=== PATIENT | female | born 1930 | race Two or more races ===

== ENCOUNTER 2017-04-15 13:01 | Emergency (ER) | payer MEDICARE, MEDICAID, OTHER ==
[2017-04-15] MEDS ORDERED: NS 0.9% 1000 ML* 1,000 ML IV ONE (13:56)
--- NOTE | 2017-04-15 14:35 | RAD ---
HISTORY: Bilateral hip pain, fall COMPARISONS: June 26, 2012 VIEWS: 5, Frontal view of the pelvis with frontal and frog-leg views of the left hip and of the right hip FINDINGS: Right: BONE DENSITY: There is diffuse osteopenia. BONES: There is no displaced fracture. JOINTS: There is mild osteoarthritis of the right hip ALIGNMENT: There is no dislocation. The alignment is anatomic. SOFT TISSUES: Unremarkable. Left: BONE DENSITY: There is diffuse osteopenia. BONES: There is no displaced fracture. JOINTS: There is mild osteoporosis of the left hip ALIGNMENT: There is no dislocation. The alignment is anatomic. SOFT TISSUES: Unremarkable. OTHER FINDINGS: None. IMPRESSION: 1. OSTEOPENIA. 2. BILATERAL OSTEOARTHRITIS. 3. NO RADIOGRAPHIC EVIDENCE FOR HIP FRACTURE. X-RAYS MAY BE NEGATIVE WITH NONDISPLACED HIP FRACTURE, IF THERE IS PERSISTENT CLINICAL CONCERN, RECOMMEND CONSIDERATION OF MRI. IN THE SETTING OF CONTRAINDICATION TO MRI OR LIMITATION IN EMERGENT ACCESS TO MRI, CT WOULD BE SUGGESTED.
--- NOTE | 2017-04-15 14:35 | RAD ---
HISTORY: Left knee pain, status post fall COMPARISONS: April 11, 2011 VIEWS: 2, Frontal and lateral views of the left knee FINDINGS: BONE DENSITY: There is diffuse osteopenia. BONES: There is no displaced fracture. JOINTS: There is mild to moderate tricompartmental osteoarthritis. There is no suprapatellar joint effusion or lipohemarthrosis. ALIGNMENT: There is no dislocation. SOFT TISSUES: Unremarkable. OTHER FINDINGS: None. IMPRESSION: OSTEOPENIA. OSTEOARTHRITIS. NO ACUTE OSSEOUS INJURY. IF SYMPTOMS PERSIST, RECOMMEND REPEAT IMAGING.
[2017-04-15 14:48] LABS: Hematocrit 36 % (35-47); Hemoglobin 11.5 g/dl (12.0-16.0); Mean Corpuscular HGB Conc 32 g/dl (31-36); Mean Corpuscular Hemoglobin 30 pg (27-31); Mean Corpuscular Volume 93 fL (80-97); Mean Platelet Volume 9 um3 (7.4-10.4); Red Blood Count 3.85 10^6/ul (4.0-5.4); Red Cell Distribution Width 16 % (10.5-15); White Blood Count 15.9 10^3/ul (3.5-10.8)
[2017-04-15 15:02] LABS: Albumin 3.8 g/dL (3.2-5.2); BUN/Creatinine Ratio 14.4 (8-20); C Reactive Protein 54.11 mg/L (< 5.00); Calcium 9.4 mg/dL (8.6-10.3); EGFR African American 43.7 (>60); Globulin 3.6 g/dL (2-4); Total Bilirubin 0.7 mg/dL (0.2-1.0); Total Protein 7.4 g/dL (6.4-8.9)
[2017-04-15 15:04] LABS: Potassium 3.9 mmol/L (3.5-5.0)
[2017-04-15 18:08] VITALS: BP 178/88
--- NOTE | 2017-04-15 18:49 | ED ---
Antonietta Vela Auryana, scribed for Alon Arriaga MD on 04/15/17 at 1417 . Complex/Multi-Sys Presentation - HPI Summary HPI Summary: 87 year old female MARQUES from shelter due to right hip pain. Patient is non- verbal and does not answer questions. she is a level 5 caveat due to dementia. On arrival, nurses state that patient denies any pain. On physician visit, patient expresses left leg pain with movement with passive movement. - History Of Current Complaint Chief Complaint: EDGeneral Time Seen by Provider: 04/15/17 13:21 Hx Obtained From: Family/Lombardi Developer, EMS, Medical Records Hx From Patient Unobtainable Due To: Dementia - Unable to get history - level 5 caveat due to dementia. Location: Pain At: - left knee and left hip - Allergies/Home Medications Allergies/Adverse Reactions: Allergies Allergy/AdvReac Type Severity Reaction Status Date / Time Codeine Allergy Nausea Verified 07/10/15 21:40 PMH/Surg Hx/FS Hx/Imm Hx Endocrine/Hematology History: Reports: Hx Diabetes - NIDDM, Hx Thyroid Disease Cardiovascular History: Reports: Hx Coronary Artery Disease - declined stents per patient's son, Hx Hypercholesterolemia, Hx Hypertension, Other Cardiovascular Problems/Disorders - IDDM II Respiratory History: Denies: Hx Asthma, Hx Chronic Obstructive Pulmonary Disease (COPD) GI History: Reports: Hx Gastroesophageal Reflux Disease, Other GI Disorders - diverticulitis, GERD Musculoskeletal History: Reports: Other Musculoskeletal History - pelvic fx sep 2014 Sensory History: Reports: Hx Contacts or Glasses, Hx Hearing Problem Denies: Hx Hearing Aid Opthamlomology History: Reports: Hx Contacts or Glasses Neurological History: Reports: Hx Dementia - DM II - Surgical History Surgery Procedure, Year, and Place: language barrier. 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 Positive: Myalgia - LEFT LE PAIN All Other Systems Reviewed And Are Negative: No Physical Exam - Summary Physical Exam Summary: VITAL SIGNS: Reviewed. GENERAL: Patient is a elderly, fragile, confused, and non-verbal female who is lying in the stretcher. Patient is not in any acute respiratory distress. Unable to get history - level 5 caveat due to dementia. Patient is obtund but reacts on verbal stimulation. Patient is confused - per report this is her baseline. HEAD AND FACE: No signs of trauma. No ecchymosis, hematomas or skull depressions. No sinus tenderness. EYES: PERRLA, EOMI x 2, No injected conjunctiva, no nystagmus. No photophobia. EARS: Hearing grossly intact. Ear canals and tympanic membranes are within normal limits. MOUTH: Oropharynx dry but otherwise within normal limits. NECK: Supple, trachea is midline, no adenopathy, no JVD, no carotid bruit, no c- spine tenderness, neck with full ROM. No meningeal signs, no Kernig's or brudzinskis signs. CHEST: Symmetric, no tenderness at palpation LUNGS: Clear to auscultation bilaterally. No wheezing or crackles. CVS: Regular rate and rhythm, S1 and S2 present, no murmurs or gallops appreciated. ABDOMEN: Soft, non-tender. No signs of distention. No rebound no guarding, and no masses palpated. Bowel sounds are normal. EXTREMITIES: Left hip adn left knee pain with movement but no edema, no cyanosis or clubbing. NEURO: No acute neurological deficits. SKIN: Dry and warm Triage Information Reviewed: Yes Vital Signs On Initial Exam: Initial Vitals Temp Pulse Resp BP Pulse Ox 98.4 F 77 16 104/66 92 04/15/17 13:12 04/15/17 13:12 04/15/17 13:12 04/15/17 13:12 04/15/17 13:12 Vital Signs Reviewed: Yes Diagnostics - Vital Signs Vital Signs Temp Pulse Resp BP Pulse Ox 04/15/17 13:26 98.4 F 74 16 104/66 92 04/15/17 13:12 98.4 F 77 16 104/66 92 - Laboratory Lab Results: Lab Results 04/15/17 04/15/17 04/15/17 Range/Units 14:40 14:40 14:40 WBC 15.9 H (3.5-10.8) 10^3/ul RBC 3.85 L (4.0-5.4) 10^6/ul Hgb 11.5 L (12.0-16.0) g/dl Hct 36 (35-47) % MCV 93 (80-97) fL MCH 30 (27-31) pg MCHC 32 (31-36) g/dl RDW 16 H (10.5-15) % Plt Count 280 (150-450) 10^3/ul MPV 9 (7.4-10.4) um3 Neut % (Auto) 68.6 (38-83) % Lymph % (Auto) 20.9 L (25-47) % [place] % (Auto) 7.9 (1-9) % Eos % (Auto) 1.6 (0-6) % Baso % (Auto) 1.0 (0-2) % Absolute Neuts (auto) 10.9 H (1.5-7.7) 10^3/ul Absolute Lymphs (auto) 3.3 (1.0-4.8) 10^3/ul Absolute Monos (auto) 1.3 H (0-0.8) 10^3/ul Absolute Eos (auto) 0.3 (0-0.6) 10^3/ul Absolute Basos (auto) 0.2 (0-0.2) 10^3/ul Absolute Nucleated RBC 0.01 10^3/ul Nucleated RBC % 0 Sodium 136 (133-145) mmol/L Potassium 3.9 (3.5-5.0) mmol/L Chloride 103 (101-111) mmol/L Carbon Dioxide 23 (22-32) mmol/L Anion Gap 10 (2-11) mmol/L BUN 21 (6-24) mg/dL Creatinine 1.46 H (0.51-0.95) mg/dL Est GFR ( Amer) 43.7 (>60) Est GFR (Non-Af Amer) 34.0 (>60) BUN/Creatinine Ratio 14.4 (8-20) Glucose 100 (70-100) mg/dL Lactic Acid 2.6 H* (0.5-2.0) mmol/L Calcium 9.4 (8.6-10.3) mg/dL Total Bilirubin 0.70 (0.2-1.0) mg/dL AST 18 (13-39) U/L ALT 7 (7-52) U/L Alkaline Phosphatase 83 (34-104) U/L C-Reactive Protein 54.11 H (< 5.00) mg/L Total Protein 7.4 (6.4-8.9) g/dL Albumin 3.8 (3.2-5.2) g/dL Globulin 3.6 (2-4) g/dL Albumin/Globulin Ratio 1.1 (1-3) Result Diagrams: 04/15/17 14:40 04/15/17 14:40 Lab Statement: Any lab studies that have been ordered have been reviewed, and results considered in the medical decision making process. - Radiology BILATERAL HIP XR Xray Interpretation: Positive (See Comments) - IMPRESSION: 1. OSTEOPENIA. 2. BILATERAL OSTEOARTHRITIS. 3. NO RADIOGRAPHIC EVIDENCE FOR HIP FRACTURE. X- RAYS MAY BE NEGATIVE WITH NONDISPLACED HIP FRACTURE, IF THERE IS PERSISTENT CLINICAL CONCERN, RECOMMEND CONSIDERATION OF MRI. IN THE SETTING OF CONTRAINDICATION TO MRI OR LIMITATION IN EMERGENT ACCESS TO MRI, CT WOULD BE SUGGESTED. Radiology Interpretation Completed By: Radiologist LEFT KNEE XR Xray Interpretation: Positive (See Comments) - IMPRESSION: OSTEOPENIA. OSTEOARTHRITIS. NO ACUTE OSSEOUS INJURY. IF SYMPTOMS PERSIST, RECOMMEND REPEAT IMAGING. Radiology Interpretation Completed By: Radiologist Complex Multi-Symp Course/Dx Course Of Treatment: 87 year old female BIBA from shelter due to right hip pain. Patient is non-verbal and does not answer questions. she is a level 5 caveat due to dementia. On arrival, nurses state that patient denies any pain. On physician visit, patient expresses left leg pain with movement with passive movement. Assessment/Plan: Test results WNL except slight increase WBC of 15.9., creatinine 1.46, CRP 54.11. HIP XR and KNEE XR shows no fracture or dislocation. Patient is very comfortable and moves all extremities- no pain. Therefore patient will be discharged back to the shelter. She is hemodynamically stable and A&O. - Diagnoses Provider Diagnoses: Left hip pain, Fall Discharge - Discharge Plan Condition: Stable Disposition: HOSPICE - OTHER FACILITY Discharge Disposition Comment: discharged back to [place] Patient Education Materials: Fall Prevention (ED), Hip Pain (ED) Referrals: Uriel, [Primary Care Provider] - 2 Days The documentation as recorded by the Antonietta santos Auryana accurately reflects the service I personally performed and the decisions made by Bart nava Walter, MD.
== END 2017-04-15 20:23 | disposition home or self-care (01) ==
LOC: ED 13:01
DX: M25.551 Pain in right hip (principal); E11.8 Type 2 diabetes mellitus with unspecified complications; F03.90 Unspecified dementia, unspecified severity, without behavioral disturbance, psychotic disturbance, mood disturbance, and anxiety; Z91.81 History of falling; Z86.79 Personal history of other diseases of the circulatory system
CPT/HCPCS: 36415; 73523; 80053; 83605; 85025; 86140; 99283

== ENCOUNTER → 2017-04-18 14:03 | Emergency (ER) | payer MEDICARE, OTHER ==
[~2017-04-18 14:03] MED LIST: NS 0.9% 1000 ML* 1,000 ML IV ONE
--- NOTE | 2017-04-18 16:22 | RAD ---
INDICATION: Weakness COMPARISON: Chest x-ray 22,015 TECHNIQUE: AP seated and lateral views were obtained. FINDINGS: Bones/Soft Tissues: There is osteopenia with kyphosis. Cardiomediastinal: The heart is normal in size. There is uncoiling of the thoracic aorta. There are as atherosclerotic calcifications. Lungs: There are no infiltrates. Pleura: There are no pleural effusions. Other: None IMPRESSION: NO ACTIVE DISEASE.
[2017-04-18 16:51] LABS: Hematocrit 32 % (35-47); Hemoglobin 10.2 g/dl (12.0-16.0); Mean Corpuscular HGB Conc 32 g/dl (31-36); Mean Corpuscular Hemoglobin 30 pg (27-31); Mean Corpuscular Volume 94 fL (80-97); Mean Platelet Volume 9 um3 (7.4-10.4); Red Cell Distribution Width 16 % (10.5-15); White Blood Count 11.4 10^3/ul (3.5-10.8)
[2017-04-18 17:16] LABS: Albumin 3.7 g/dL (3.2-5.2); BUN/Creatinine Ratio 19.9 (8-20); C Reactive Protein 60.92 mg/L (< 5.00); Calcium 9.1 mg/dL (8.6-10.3); EGFR African American 36.4 (>60); EGFR Non-African American 28.3 (>60); Globulin 3.5 g/dL (2-4); Potassium 3.9 mmol/L (3.5-5.0); Total Bilirubin 0.3 mg/dL (0.2-1.0); Total Protein 7.2 g/dL (6.4-8.9)
[2017-04-18 17:48] LABS: Urine Bacteria Absent (Absent); Urine Bilirubin Negative (Negative); Urine Glucose Negative (Negative); Urine Nitrite Negative (Negative)
[2017-04-18 18:03] VITALS: BP 153/84
--- NOTE | 2017-04-19 12:28 | ED ---
Alonzo Vela Billy, scribed for Alon Arriaga MD on 04/18/17 at 1707 . Complex/Multi-Sys Presentation - HPI Summary HPI Summary: This is an 87 year-old female who is a resident of [facility]. PMHx of multiple fractures, DM, HTN, HLD, who presents to the ED following high lactic acid this morning of 4.3. She is Albanian-speaking only, hard of hearing, and has dementia, and is accompanied by her son who is unfamiliar with her PMHx and the events of this morning. Last here in the ED on 04/15/17 for evaluation of fracture injury. Per son, patient still complains of pain to the right leg where she fell, which is unchanged since Sunday. Patient does not appear to be in any distress. - History Of Current Complaint Chief Complaint: EDGeneral Time Seen by Provider: 04/18/17 15:10 Hx Obtained From: Patient, Family/Boiler Service Technician Onset/Duration: Still Present Timing: Constant Severity Currently: None Location: Pain At: - left leg (unchanged) Aggravating Factor(s): n/a Alleviating Factor(s): n/a - Allergies/Home Medications Allergies/Adverse Reactions: Allergies Allergy/AdvReac Type Severity Reaction Status Date / Time Codeine Allergy Nausea Verified 07/10/15 21:40 Home Medications: Home Medications Acetaminophen [Acetaminophen Extra Stren] 1,000 mg PO TID PRN 04/18/17 [History Confirmed 04/18/17] Aspirin Low Dose CHEW TAB* [Aspirin Low Dose TAB*] 81 mg PO QAM 04/18/17 [ History Confirmed 04/18/17] Cholecalciferol [Vitamin D3 Super Strength] 2,000 unit PO QAM 04/18/17 [History Confirmed 04/18/17] Cyanocobalamin TAB* [Vitamin B12 TAB*] 1,000 mcg PO QAM 04/18/17 [History Confirmed 04/18/17] Diltiazem CD CAP* [Cardizem CD CAP*] 120 mg PO QAM 04/18/17 [History Confirmed 04/18/17] Lactase Enzyme (NF) [Lactase Enzyme] 9,000 unit PO AC 04/18/17 [History Confirmed 04/18/17] Lovastatin(NF) [Mevacor(NF)] 20 mg PO BEDTIME 04/18/17 [History Confirmed ] Metoprolol Succinate XL TAB* [Toprol XL TAB*] 25 mg PO QAM 04/18/17 [History Confirmed 04/18/17] PMH/Surg Hx/FS Hx/Imm Hx Endocrine/Hematology History: Reports: Hx Diabetes - NIDDM, Hx Thyroid Disease Cardiovascular History: Reports: Hx Coronary Artery Disease - declined stents per patient's son, Hx Hypercholesterolemia, Hx Hypertension, Other Cardiovascular Problems/Disorders - IDDM II Respiratory History: Denies: Hx Asthma, Hx Chronic Obstructive Pulmonary Disease (COPD) GI History: Reports: Hx Gastroesophageal Reflux Disease, Other GI Disorders - diverticulitis, GERD Musculoskeletal History: Reports: Other Musculoskeletal History - pelvic fx sep 2014 Sensory History: Reports: Hx Contacts or Glasses, Hx Hearing Problem Denies: Hx Hearing Aid Opthamlomology History: Reports: Hx Contacts or Glasses Neurological History: Reports: Hx Dementia - DM II - Surgical History Surgery Procedure, Year, and Place: language barrier. 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 GENERAL: Patient is a well-developed and nourished female who is lying comfortable in the stretcher. Patient is not in any acute respiratory distress. HEAD AND FACE: No signs of trauma. No ecchymosis, hematomas or skull depressions. No sinus tenderness. EYES: PERRLA, EOMI x 2, No injected conjunctiva, no nystagmus. EARS: Hearing grossly intact. Ear canals and tympanic membranes are within normal limits. MOUTH: Oropharynx within normal limits. NECK: Supple, trachea is midline, no adenopathy, no JVD, no carotid bruit, no c- spine tenderness, neck with full ROM. CHEST: Symmetric, no tenderness at palpation LUNGS: Clear to auscultation bilaterally. No wheezing or crackles. CVS: Regular rate and rhythm, S1 and S2 present, no murmurs or gallops appreciated. ABDOMEN: Soft, non-tender. No signs of distention. No rebound no guarding, and no masses palpated. Bowel sounds are normal. EXTREMITIES: Left hip and knee pain with no edema, no cyanosis or clubbing. NEURO: Alert and oriented x 3. No acute neurological deficits. Speech is normal and follows commands. SKIN: Dry and warm Triage Information Reviewed: Yes Vital Signs On Initial Exam: Initial Vitals Temp Pulse BP Pulse Ox 98.7 F 86 126/71 98 04/18/17 14:08 04/18/17 14:08 04/18/17 14:08 04/18/17 14:08 Vital Signs Reviewed: Yes - Shoshana Coma Scale Coma Scale Total: 13 Diagnostics - Vital Signs Vital Signs Temp Pulse Resp BP Pulse Ox 04/18/17 15:03 98.6 F 85 15 137/75 93 04/18/17 14:08 98.7 F 86 126/71 98 - Laboratory Lab Results: Lab Results 04/18/17 04/18/17 04/18/17 Range/Units 16:40 16:40 16:40 WBC 11.4 H (3.5-10.8) 10^3/ul RBC 3.40 L (4.0-5.4) 10^6/ul Hgb 10.2 L (12.0-16.0) g/dl Hct 32 L (35-47) % MCV 94 (80-97) fL MCH 30 (27-31) pg MCHC 32 (31-36) g/dl RDW 16 H (10.5-15) % Plt Count 303 (150-450) 10^3/ul MPV 9 (7.4-10.4) um3 Neut % (Auto) 59.0 (38-83) % Lymph % (Auto) 28.7 (25-47) % [place] % (Auto) 8.2 (1-9) % Eos % (Auto) 3.8 (0-6) % Baso % (Auto) 0.3 (0-2) % Absolute Neuts (auto) 6.7 (1.5-7.7) 10^3/ul Absolute Lymphs (auto) 3.3 (1.0-4.8) 10^3/ul Absolute Monos (auto) 0.9 H (0-0.8) 10^3/ul Absolute Eos (auto) 0.4 (0-0.6) 10^3/ul Absolute Basos (auto) 0 (0-0.2) 10^3/ul Absolute Nucleated RBC 0.01 10^3/ul Nucleated RBC % 0.1 Sodium 139 (133-145) mmol/L Potassium 3.9 (3.5-5.0) mmol/L Chloride 106 (101-111) mmol/L Carbon Dioxide 24 (22-32) mmol/L Anion Gap 9 (2-11) mmol/L BUN 34 H (6-24) mg/dL Creatinine 1.71 H (0.51-0.95) mg/dL Est GFR ( Amer) 36.4 (>60) Est GFR (Non-Af Amer) 28.3 (>60) BUN/Creatinine Ratio 19.9 (8-20) Glucose 133 H (70-100) mg/dL Lactic Acid 1.5 (0.5-2.0) mmol/L Calcium 9.1 (8.6-10.3) mg/dL Total Bilirubin 0.30 (0.2-1.0) mg/dL AST 12 L (13-39) U/L ALT 5 L (7-52) U/L Alkaline Phosphatase 87 (34-104) U/L Ammonia (16-53) mol/L C-Reactive Protein 60.92 H (< 5.00) mg/L Total Protein 7.2 (6.4-8.9) g/dL Albumin 3.7 (3.2-5.2) g/dL Globulin 3.5 (2-4) g/dL Albumin/Globulin Ratio 1.1 (1-3) Lipase 76 (11.0-82.0) U/L Urine Color Urine Appearance Urine pH (5-9) Ur Specific [place] (1.010-1.030) Urine Protein (Negative) Urine Ketones (Negative) Urine Blood (Negative) Urine Nitrate (Negative) Urine Bilirubin (Negative) Urine Urobilinogen (Negative) Ur Leukocyte Esterase (Negative) Urine WBC (Auto) (Absent) Urine RBC (Auto) (Absent) Ur Squamous Epith Cells (Absent) Urine Bacteria (Absent) Urine Glucose (Negative) Urine Ascorbic Acid (Negative) 04/18/17 04/18/17 Range/Units 16:40 17:35 WBC (3.5-10.8) 10^3/ul RBC (4.0-5.4) 10^6/ul Hgb (12.0-16.0) g/dl Hct (35-47) % MCV (80-97) fL MCH (27-31) pg MCHC (31-36) g/dl RDW (10.5-15) % Plt Count (150-450) 10^3/ul MPV (7.4-10.4) um3 Neut % (Auto) (38-83) % Lymph % (Auto) (25-47) % [place] % (Auto) (1-9) % Eos % (Auto) (0-6) % Baso % (Auto) (0-2) % Absolute Neuts (auto) (1.5-7.7) 10^3/ul Absolute Lymphs (auto) (1.0-4.8) 10^3/ul Absolute Monos (auto) (0-0.8) 10^3/ul Absolute Eos (auto) (0-0.6) 10^3/ul Absolute Basos (auto) (0-0.2) 10^3/ul Absolute Nucleated RBC 10^3/ul Nucleated RBC % Sodium (133-145) mmol/L Potassium (3.5-5.0) mmol/L Chloride (101-111) mmol/L Carbon Dioxide (22-32) mmol/L Anion Gap (2-11) mmol/L BUN (6-24) mg/dL Creatinine (0.51-0.95) mg/dL Est GFR ( Amer) (>60) Est GFR (Non-Af Amer) (>60) BUN/Creatinine Ratio (8-20) Glucose (70-100) mg/dL Lactic Acid (0.5-2.0) mmol/L Calcium (8.6-10.3) mg/dL Total Bilirubin (0.2-1.0) mg/dL AST (13-39) U/L ALT (7-52) U/L Alkaline Phosphatase (34-104) U/L Ammonia 38 (16-53) mol/L C-Reactive Protein (< 5.00) mg/L Total Protein (6.4-8.9) g/dL Albumin (3.2-5.2) g/dL Globulin (2-4) g/dL Albumin/Globulin Ratio (1-3) Lipase (11.0-82.0) U/L Urine Color Yellow Urine Appearance Cloudy Urine pH 5.0 (5-9) Ur Specific [place] 1.018 (1.010-1.030) Urine Protein Negative (Negative) Urine Ketones Negative (Negative) Urine Blood Negative (Negative) Urine Nitrate Negative (Negative) Urine Bilirubin Negative (Negative) Urine Urobilinogen Negative (Negative) Ur Leukocyte Esterase Trace H (Negative) Urine WBC (Auto) Trace(0-5/hpf) (Absent) Urine RBC (Auto) Absent (Absent) Ur Squamous Epith Cells Present H (Absent) Urine Bacteria Absent (Absent) Urine Glucose Negative (Negative) Urine Ascorbic Acid * H (Negative) Result Diagrams: 04/18/17 16:40 04/18/17 16:40 Lab Statement: Any lab studies that have been ordered have been reviewed, and results considered in the medical decision making process. Complex Multi-Symp Course/Dx Assessment/Plan: This is an 87 year-old female who is a resident of [facility]. PMHx of multiple fractures, DM, HTN, HLD, who presents to the ED following high lactic acid this morning of 4.3. She is Albanian-speaking only, hard of hearing, and has dementia, and is accompanied by her son who is unfamiliar with her PMHx and the events of this morning. Last here in the ED on 04/15/17 for evaluation of fracture injury. Per son, patient still complains of pain to the right leg where she fell, which is unchanged since Sunday. Patient does not appear to be in any distress. Test results WNL except for WBC of 11.4 which is improved from a previous measurement of 15.9. BUN is 34. Creatinine is 1.71 possibly secondary to dehydration. Lactic acid is 1.5. CRP is 60.9. UA is negative. CXR shows no active disease. Therefore in the Ed course the patient was given IV fluids for dehydration. The patient is much more talkative and alert with her son who speaks Albanian. The patients son reports that she may actually be depressed because she lost her favorite son four weeks ago, because he used to visit her every day, and now she is only visited once in a while since he lives far away. The patient will be discharged home to follow up with PCP. - Diagnoses Differential Diagnoses/HQI/PQRI: Urinary Tract Infection, Other - Pneumonia, deconditioning, weakness Provider Diagnoses: Dehydration, possible depression Discharge - Discharge Plan Condition: Improved Disposition: HOME Patient Education Materials: Dehydration (ED) Referrals: Uriel, [Primary Care Provider] - The documentation as recorded by the Alonzo santos Billy accurately reflects the service I personally performed and the decisions made by me, Alon Arriaga MD.
== END | disposition home or self-care (01) ==
LOC: ED 14:03
DX: N39.0 Urinary tract infection, site not specified (principal); G89.11 Acute pain due to trauma; I10 Essential (primary) hypertension; E03.9 Hypothyroidism, unspecified; E13.8 Other specified diabetes mellitus with unspecified complications; E55.9 Vitamin D deficiency, unspecified
CPT/HCPCS: 36415; 71020; 80053; 81003; 82140; 83605; 83690; 85025; 86140; 87040; 93005; 99283

== ENCOUNTER 2017-05-02 17:58 | Inpatient (IN) | payer MEDICARE, OTHER ==
--- NOTE | 2017-05-02 20:18 | RAD ---
Indication: Multiple bear weight on RIGHT hip post fall 4 weeks ago. Comparison: April 15, 2017 radiographs. October 06, 2014 CT. Technique: Noncontrast CT pelvis and proximal femurs. Multiplanar reformation. Report: Comminuted intertrochanteric fracture with impaction and varus angulation. Suggestion of osseous remodeling along the impacted dominant fracture plane consistent with early healing response. Surrounding edema/infiltrative hematoma and suggestion of approximate 2.5 x 3.1 x 2 cm cephalocaudal loculated hematoma involving the gluteus medius muscle. Partially visualized age indeterminant although possibly acute osteoporotic compression fracture of the L4 vertebral body with approximate 50% loss of height at the anterior column and only mild involvement of the middle column. This fracture is new compared with the 2014 exam. Based on correlation with the 2014 exam the L4 vertebral body contained a 1.3 cm osseous hemangioma. Negative for pelvic fracture or joint diastases. Polyarticular degenerative arthropathy. Mild to moderate osteoarthritis of the bilateral hips. Visualized pelvic viscera remarkable for colonic diverticulosis without visualized perienteric inflammatory change. Negative for ascites or free air within the [id number]. Fat-containing supraumbilical ventral hernia without inflammatory change. Atherosclerotic calcification with up and normal diameter of the LEFT common iliac artery. IMPRESSION: 1. Bone density is decreased throughout. 2. Comminuted RIGHT intertrochanteric fracture with impaction and varus angulation. Suggestion of osseous remodeling along the impacted dominant fracture plane consistent with early healing response. Surrounding edema/infiltrative hematoma and suggestion of approximate 2.5 x 3.1 x 2 cm cephalocaudal loculated hematoma involving the gluteus medius muscle. 3. Partially visualized age indeterminant although possibly acute osteoporotic compression fracture of the L4 vertebral body with approximate 50% loss of height at the anterior column and only mild involvement of the middle column.
[2017-05-02] MEDS ORDERED: Acetaminophen SUPP* 650 MG SUPP PR PRN (20:47)
[2017-05-02] MEDS ORDERED: Dextrose 50% Syringe 50 ML* 25 GM/50 ML SYRINGE IV PUSH PRN (21:14)
[2017-05-02 22:22] LABS: Hematocrit 28 % (35-47); Hemoglobin 9.1 g/dl (12.0-16.0); Mean Corpuscular HGB Conc 32 g/dl (31-36); Mean Corpuscular Hemoglobin 31 pg (27-31); Mean Corpuscular Volume 96 fL (80-97); Mean Platelet Volume 9 um3 (7.4-10.4); Red Blood Count 2.96 10^6/ul (4.0-5.4); Red Cell Distribution Width 16 % (10.5-15); White Blood Count 14.5 10^3/ul (3.5-10.8)
[2017-05-02 22:37] LABS: Albumin 3.2 g/dL (3.2-5.2); BUN/Creatinine Ratio 26.2 (8-20); EGFR African American 45.5 (>60); EGFR Non-African American 35.4 (>60); Globulin 3.4 g/dL (2-4); Potassium 4.5 mmol/L (3.5-5.0); Total Bilirubin 0.4 mg/dL (0.2-1.0); Total Protein 6.6 g/dL (6.4-8.9)
[2017-05-02] MEDS: Morphine INJ* 2 MG/ML 1 ML SYRINGE IV PRN (22:52)
[2017-05-02] MEDS: Heparin VIAL(*) 5000 UNITS/ML VIAL (FIVE THOUSAND) SUBCUT SCH (22:52)
[2017-05-02] MEDS: Acetaminophen TAB* 325 MG PO PRN (22:52)
[2017-05-02] MEDS: Insulin LISPRO* 1 UNITS UNIT SUBCUT SCH (23:01)
--- NOTE | 2017-05-02 23:31 | RAD ---
Indication: RIGHT hip pain post fall. Nonweightbearing. Comparison: CT of the same date. Technique: AP pelvis and AP and crosstable lateral views RIGHT hip. Report: Comminuted intratrochanteric fracture with impaction and varus angulation. The femoral head remains located at the acetabulum. Negative for pelvic fracture or joint diastases. Bone density appears decreased throughout the [id number]. Soft tissue swelling about the RIGHT hip. Mild osteoarthritis at the bilateral hips. IMPRESSION: Comminuted intratrochanteric fracture with impaction and varus angulation.
--- NOTE | 2017-05-02 23:31 | RAD ---
Indication: RIGHT hip fracture. Comparison: RIGHT hip exam of the same date. Technique: AP and crosstable lateral views RIGHT femur. REPORT AND IMPRESSION: Comminuted impacted intertrochanteric fracture of the femoral neck with varus angulation as described in the dedicated hip exam. Negative for additional fracture of the femur. Osteoarthritis at the hip and knee. Vascular calcifications. Soft tissue swelling about the hip.
--- NOTE | 2017-05-02 23:37 | HP ---
CC: Christie Alvarado MD * HISTORY AND PHYSICAL: DATE OF ADMISSION: 05/02/17 CHIEF COMPLAINT: Hip fracture. HISTORY OF PRESENT ILLNESS: Please note that the entire history is gotten from the notes received from the nursing facility and the ER doctor as the family is not available and the patient although she speaks Bengali, we tried to use a cheese pancake roller and she did not respond at all to any of the questions. The patient is an 87-year-old woman, who apparently fell a few weeks ago. The patient was evaluated for her left hip at that time and it was negative. However, today she was complaining of right hip pain on touching her leg, which was externally rotated. The RETAIL LOAN ORIGINATOR ASSISTANT at the nursing facility ordered an x-ray of that hip, which showed comminuted intertrochanteric fracture. The patient was sent to the ER for evaluation. Here in the ER, the patient again speaks Bengali, but does not respond to the Bengali cheese pancake roller at all. It is unclear if this is new or the patient is confused about being in the hospital. PAST MEDICAL HISTORY: Significant for diabetes mellitus type 2, chronic kidney disease stage 3, hypertension, hyperlipidemia, hypothyroidism, coronary artery disease, atrial fibrillation, and gout. PAST SURGICAL HISTORY: Significant for cholecystectomy, bilateral cataract extractions. CURRENT MEDICATIONS: Are as follows: 1. Tramadol 50 mg every 12 hours as needed. 2. Metformin 1000 mg twice daily. 3. Metoprolol succinate 25 mg in the morning. 4. Lovastatin 20 mg at bedtime. 5. Levothyroxine 50 mcg in the morning. 6. Lactase 9000 units before each meal. 7. Imdur ER 60 mg in the morning. 8. Ferrous sulfate 325 mg in the morning. 9. Diltiazem CD 120 mg in the morning. 10. Vitamin B12 1000 mcg in the morning. 11. Vitamin D3 2000 units in the morning. 12. Aspirin 81 mg daily. 13. Allopurinol 100 mg in the morning. 14. Tylenol 1000 mg 3 times a day as needed. ALLERGIES: She has an allergy/adverse reaction to CODEINE, which she gets nauseated. FAMILY HISTORY: Per prior notes, noncontributory. SOCIAL HISTORY: No tobacco, alcohol, or recreational drugs use. She is now a resident at the nursing facility. She is a do not resuscitate, do not intubate. Her son is her healthcare proxy. REVIEW OF SYSTEMS: Unable to obtain from the patient because of language barrier and that she appears confused. PHYSICAL EXAMINATION GENERAL: Pleasant woman, lying in bed, not in acute distress. VITAL SIGNS: Blood pressure 144/69, pulse ox 93%, heart rate 84 beats per minute, temperature 99.7 degrees, respiratory rate 18 breaths per minute. HEENT: Normocephalic, atraumatic. Pupils equal, round and reactive to light. Moist mucous membranes. NECK: Supple. No JVD, bruits, palpable thyroid or lymphadenopathy. CHEST: Clear to auscultation and percussion bilaterally. CARDIOVASCULAR: S1, S2 appreciated. 2/6 systolic murmur best heard at the left sternal border. ABDOMEN: Positive bowel sounds in all 4 quadrants. Soft, nontender, nondistended. EXTREMITIES: No cyanosis, clubbing or edema. +2 peripheral pulses bilaterally. NEUROLOGIC: Alert, but cannot tell if oriented because of both language barrier and she does not cooperate or answer the cheese pancake roller. Moves all extremities. SKIN: No distinct rashes or abnormalities. DIAGNOSTIC STUDIES/LABORATORY DATA: Pending. X-ray shows right hip comminuted intertrochanteric fracture, osteoporosis of the acetabulum. Pelvic CT shows bone density decreased throughout, comminuted right intertrochanteric fracture with impaction and varus angulation, suggestion of osseous remodelling along the impacted dominated right fracture plane consistent with early healing response, surrounding edema, infiltrative hematoma, suggestion of approximately 2.5 x 3.1 x loculated hematoma involving the gluteus medius muscle, partially visualized indeterminate although possibly acute osteoporotic compression fracture of the L4 vertebral body with approximately 50% of the height of the anterior column and only mild involvement of the middle column. ASSESSMENT AND PLAN: 1. Right hip intertrochanteric fracture. We will obtain EKG and labs for patient. At that point, we will able to ascertain her risks for surgery. Concern obviously is that it appears to be already healing. I will defer this to Orthopedics. I will hold her aspirin for now. I will give her heparin prophylactically, but hold if she is having surgery in the morning. 2. Diabetes mellitus. Hold metformin. Placed on fingersticks with sliding scale insulin. 3. Hypertension. BP borderline. The patient is on diltiazem and metoprolol. It is unclear if she has gotten them yet today. We will continue medications. 4. Hypothyroidism. Continue Synthroid. 5. Gout. Continue allopurinol. 6. FEN. NPO in case of possible surgery in the a.m. 7. DVT prophylaxis. Heparin, but holding if having surgery in the morning. 8. The patient is a do not resuscitate. TIME SPENT: Over 85 minutes were spent on this H and P, and more than 45 minutes of which was spent in direct [id number] contact with the patient in evaluation, physical exam, counseling and coordination of care. [id number]/[facility] #: [id number] MTDD
[2017-05-03] MEDS: Morphine INJ* 2 MG/ML 1 ML SYRINGE IV PRN ×4 (01:46→21:54)
[2017-05-03] MEDS: Levothyroxine TAB* 50 MCG TAB PO SCH (05:46)
[2017-05-03] MEDS: Insulin LISPRO* 1 UNITS UNIT SUBCUT SCH ×3 (05:46→17:45)
[2017-05-03] MEDS: Heparin VIAL(*) 5000 UNITS/ML VIAL (FIVE THOUSAND) SUBCUT SCH ×3 (05:47→22:40)
[2017-05-03] MEDS: Isosorbide Mononitrate ER TAB* 60 MG PO SCH (07:37)
[2017-05-03] MEDS: Cyanocobalamin TAB* 500 MCG PO SCH (07:37)
[2017-05-03] MEDS: Metoprolol Succinate XL TAB* 25 MG PO SCH (07:37)
[2017-05-03] MEDS: Ferrous Sulfate TAB* 325 MG PO SCH (07:37)
[2017-05-03] MEDS: Diltiazem CD CAP* 120 MG PO SCH (07:37)
--- NOTE | 2017-05-03 10:19 | CONS ---
ORTHOPEDIC CONSULTATION NOTE: DATE OF CONSULT: 05/03/17 CHIEF COMPLAINT: Right hip pain. HISTORY OF PRESENT ILLNESS: Ms. Liriano is an 87-year-old [id number] female from a nursing facility with reports of right hip pain. The patient was brought into [facility] emergen cy room and found to have a displaced intertrochanteric fracture of the right hip. She was seen sev eral weeks before with left hip pain. Hip fracture was not noted at that time. It is unclear wheth er she had a fall. A Portuguese medical detail representative was attempted and she did not respond to questions. She does have a son that is involved, name Yonathan. PAST MEDICAL HISTORY: Dementia; diabetes, type 2; chronic kidney disease, state 3; hypertension; hy perlipidemia; hypothyroidism; coronary artery disease; atrial fibrillation; gout. PAST SURGICAL HISTORY: Cholecystectomy, bilateral cataract extractions. CURRENT MEDICATIONS: 1. Tramadol 50 mg b.i.d. 2. Metformin 100 mg p.o. b.i.d. 3. Metoprolol 25 mg p.o. q.a.m. 4. Lovastatin 20 mg p.o. q.h.s. 5. Levothyroxine 50 mcg p.o. q.a.m. 6. Lactase 9000 units before every meal. 7. Imdur ER 60 mg p.o. q.a.m. 8. Ferrous sulfate 325 mg p.o. q.a.m. 9. Diltiazem CD 120 mg p.o. q.a.m. 10. Vitamin B12 1000 mcg p.o. q.a.m. 11. Vitamin D3 2000 units p.o. q.a.m. 12. Aspirin 81 mg p.o. q.d. 13. Allopurinol 100 mg p.o. q.a.m. 14. Tylenol 1000 mg p.r.n. ALLERGIES: CODEINE causes nausea. FAMILY HISTORY: Negative. SOCIAL HISTORY: The patient is a resident at a nursing facility. She is DNR/DNI. Son is her health care proxy, name Yonathan, at [phone]. No tobacco, alcohol, or recreational drug use. REVIEW OF SYSTEMS: Unable to be obtained from the patient because of language barrier and confusion /sedation. PHYSICAL EXAMINATION: General: The patient is a thin female, in no apparent distress. She is tricia kimberley, but does open her eyes to voice. Does not follow commands. Vitals: Current vitals show a tem perature of 98.5, pulse 87, blood pressure 167/80. Chest: Unlabored breathing. HEENT: Atraumatic , normocephalic. Pupils are equal and reactive to light. Right lower extremity, short and externall y rotated extremity. The right thigh is tender to palpation and swollen, but soft. 2+ palpable DP pulse distally. Motor and sensory exams cannot be obtained. DIAGNOSTIC STUDIES/LABORATORY DATA: Radiographs: Multiple views of the right hip and femur show a displaced intertrochanteric hip fracture with comminution. No obvious distal femoral fracture. Laboratory values from 05/02/17 show white blood cells 14.5, platelets 320, hematocrit 28, no left s hift. INR 0.94. Chemistry: 141, potassium 4.5, chloride 110, BUN and creatinine 37 and 1.41. ASSESSMENT AND PLAN: Ms. Liriano is an 87-year-old non-Kazakh speaking female from a nursing facili with a displaced intertrochanteric right hip fracture. We are unsure how this happened or when t his happened. Per radiographs, I would suggest a cephalomedullary device for fixation of this fracture. I have co nsulted my colleague, Dr. Ivan, who can perform the surgery tomorrow on 05/04/17. He will be con tacting the healthcare proxy, her son, to discuss whether he would like to proceed with surgery. Today, we will await the hospitalist group's recommendations on preoperative optimization and cleara nce. I have ordered a urinalysis this morning as she does have a white blood cell count and I canno t find one in the system. There is a good possibility of a UTI. Unclear when this fracture occurred. I do feel that with a small amount of manipulation, the fractu re could be reduced and fixed. For now, she is on bedrest with p.r.n. light analgesia to avoid overs edation. Once again, we await the hospitalist's recommendations on surgical clearance. We will lik magdaleno make her n.p.o. after midnight tonight if we proceed with surgery tomorrow. [id number]/[facility] #: [id number]
[2017-05-03 11:21] LABS: Urine Bacteria Absent (Absent); Urine Bilirubin Negative (Negative); Urine Glucose Negative (Negative); Urine Nitrite Negative (Negative)
[2017-05-03] MEDS: NS 0.9% 1000 ML* 1,000 ML IV SCH (11:28)
--- NOTE | 2017-05-03 16:12 | PN ---
Subjective Date of Service: 05/03/17 Interval History: Ms. Liriano speaks Japanese, is hard of hearing and has dementia. Therefore, I was unable to use dosimetrist phone to communicate. Patient does not appear to be in any acute distress. Objective Active Medications: Acetaminophen (Tylenol Supp*) 650 mg NH Q4H PRN Acetaminophen (Tylenol Tab*) 650 mg PO Q4H PRN Atorvastatin Calcium (Lipitor*) 5 mg PO BEDTIME DIONY Cyanocobalamin (Vitamin B12 Tab*) 1,000 mcg PO QAM DIONY Dextrose (D50w Syringe 50 Ml*) 12.5 gm IV PUSH .FOR FS < 60 - SS PRN Diltiazem HCl (Cardizem Cd Cap*) 120 mg PO QAM DIONY Ferrous Sulfate (Ferrous Sulfate Tab*) 325 mg PO QAM DIONY Heparin Sodium (Porcine) (Heparin Vial(*)) 5,000 units SUBCUT Q8HR DIONY Sodium Chloride (Ns 0.9% 1000 Ml*) 1,000 mls @ 75 mls/hr IV PER RATE [facility] Insulin Human Lispro (Humalog*) 0 units SUBCUT Q6HR DIONY Isosorbide Mononitrate (Imdur Er Tab*) 60 mg PO QAM DIONY Levothyroxine Sodium (Synthroid Tab*) 50 mcg PO DAILY@0600 DIONY Metoprolol Succinate (Toprol Xl Tab*) 25 mg PO QAM DIONY Morphine Sulfate (Morphine Inj (Syringe)*) 2 mg IV Q2H PRN Vital Signs 05/02/17 05/02/17 05/02/17 22:22 22:30 22:33 Temperature 99.5 F 98.2 F Pulse Rate 84 Respiratory 16 16 Rate Blood Pressure 162/89 (mmHg) O2 Sat by Pulse 95 Oximetry 05/02/17 05/02/17 05/02/17 22:35 22:52 23:52 Temperature 98.2 F Pulse Rate 84 Respiratory 16 20 16 Rate Blood Pressure 162/89 (mmHg) O2 Sat by Pulse 95 Oximetry 05/03/17 05/03/17 05/03/17 00:52 01:46 02:46 Temperature Pulse Rate Respiratory 18 16 14 Rate Blood Pressure (mmHg) O2 Sat by Pulse Oximetry 05/03/17 05/03/17 05/03/17 03:47 07:26 07:35 Temperature 98.4 F 98.5 F Pulse Rate 86 87 Respiratory 20 18 16 Rate Blood Pressure 144/86 167/80 (mmHg) O2 Sat by Pulse 94 93 Oximetry 05/03/17 05/03/17 05/03/17 08:00 08:35 11:19 Temperature 98.7 F Pulse Rate 77 Respiratory 16 16 17 Rate Blood Pressure 160/78 (mmHg) O2 Sat by Pulse 95 Oximetry 05/03/17 15:23 Temperature 97.5 F Pulse Rate 89 Respiratory 21 Rate Blood Pressure 150/78 (mmHg) O2 Sat by Pulse 96 Oximetry Oxygen Devices in Use Now: None Appearance: Elderly female lying in bed in NAD Eyes: No Scleral Icterus Ears/Nose/Mouth/Throat: Mucous Membranes Moist Neck: Trachea Midline Respiratory: Symmetrical Chest Expansion and Respiratory Effort, Clear to Auscultation Cardiovascular: NL Sounds; No Murmurs; No JVD, No Edema Abdominal: NL Sounds; No Tenderness; No Distention Extremities: No Edema Skin: No Rash or Ulcers Neurological: - - right leg externally rotated, alert and calm Nutrition: Taking PO's Result Diagrams: 05/02/17 22:10 05/02/17 22:10 Microbiology and Other Data: Microbiology 05/03/17 03:04 Nasal Screen MRSA (PCR)(EARLINE) - Final Nasal Mrsa Negative Assess/Plan/Problems-Billing Assessment: Ms. Scales is an 87 yo female with a PMH of DM, HTN, and hypothyroidism who was admitted on 05/02/17 with right hip fracture. - Patient Problems (1) Closed right hip fracture Comment: Management per ortho. T wave inversions, ST depressions V4-V6, which are somewhat new. Patient high risk for surgery based on risk factors of CAD, HTN, HLD and poor functional status. Will check troponin, though doubt she has ACS. If elevated, would consider echo prior to surgery. (2) Atrial fibrillation Comment: Continue cardizem for rate control. Not a candidate for anticoagulation because of frequent falls. (3) Coronary artery disease Comment: Asymptomatic. Continue metoprolol and imdur. (4) Diabetes Comment: BGs well controlled. Hold metformin. Continue lispro SSI coverage with meals. (5) Dyslipidemia Comment: Continue heart healthy diet. (6) Hypertension Comment: SBP 150s. Continue cardizem, metoprolol, and imdur. (7) Hypothyroidism Comment: Continue synthroid. (8) DNR (do not resuscitate) (9) DVT prophylaxis Comment: SCDs in the setting of head injury Status and Disposition: Inpatient.
[2017-05-03] MEDS ORDERED: Buffered Lidocaine 0.9% SYRIN* 5 ML/SYR SYRINGE INTRADERM ONE (17:55)
[2017-05-04] MEDS: Atorvastatin* 10 MG TAB PO SCH ×2 (00:10→21:37)
[2017-05-04] MEDS: Insulin LISPRO* 1 UNITS UNIT SUBCUT SCH ×5 (00:16→23:59)
[2017-05-04] MEDS: NS 0.9% 1000 ML* 1,000 ML IV SCH (01:39)
[2017-05-04] MEDS: Morphine INJ* 2 MG/ML 1 ML SYRINGE IV PRN (04:34)
[2017-05-04] MEDS: Heparin VIAL(*) 5000 UNITS/ML VIAL (FIVE THOUSAND) SUBCUT SCH ×3 (06:15→22:49)
[2017-05-04] MEDS: Levothyroxine TAB* 50 MCG TAB PO SCH (06:18)
[2017-05-04 09:15] LABS: Troponin I 0.8 ng/mL (<0.04)
[2017-05-04] MEDS: Diltiazem CD CAP* 120 MG PO SCH (09:54)
[2017-05-04] MEDS: Isosorbide Mononitrate ER TAB* 60 MG PO SCH (09:54)
--- NOTE | 2017-05-04 10:06 | PN ---
Progress Note - Progress Note SOAP: Subjective: I spoke with patient's son yesterday over the phone yesterday. The patient's son described her baseline of minimal ambulation, homebound, with walker. She has dementia and only on certain visits recognizes her son. He wasn't sure of the details, but he believed that she fell 3-4 weeks ago and had left hip pain and was evaluated and had no fracture. Approximately 1 week ago she fell again and complained of right hip pain. X-rays at the nursing facility of the right hip showed a fracture and the pt was transferred to the [facility] ED. Patient's son does not have an email address. Objective: NAD, comfortable appearing RLE: - externally rotated, shortened - pain c PROM hip - skin intact - NVID LLE: - no pain c PROM hip Selected Entries 05/04/17 07:28 Temperature 99.1 F Pulse Rate 82 Respiratory 13 Rate Blood Pressure 170/50 (mmHg) Laboratory Tests 05/02/17 05/02/17 05/02/17 22:10 22:10 22:10 WBC 14.5 H INR (Anticoag Therapy) 0.94 Troponin I 0.80 H* Urine Nitrate Ur Leukocyte Esterase Urine Bacteria 05/03/17 05/04/17 11:00 07:46 WBC INR (Anticoag Therapy) Troponin I 0.42 H* Urine Nitrate Negative Ur Leukocyte Esterase Negative Urine Bacteria Absent 04/15/17: xrays bilateral hips negative for fracture 05/02/17: xrays right hip show displaced intertroch fracture; radiology saw possible early callous; I don't see definitive early callous Assessment: 1. R hip displaced intertroch hip fracture, exact timing unclear 2. Possible acute cardiac event Plan: 1. Given some EKG changes and the small elevation in tropinin (despite decreasing from 05/02 to 05/04), Medicine ordered Echo to rule out acute PA 2. We will follow WBC (14), though UA was negative for UTI 3. NWB RLE, Bryce baugh in 4. NPO. On hold for OR now given results of echo. 5. If medically optimized & no acute PA, will plan to ORIF with IMN R hip intertroch fracture. 6. Son will be at hospital for consent. Unclear if he is health care proxy as his brother, now himself recently, was formerly.
[2017-05-04] MEDS: Metoprolol Succinate XL TAB* 25 MG PO SCH (11:55)
[2017-05-04] MEDS: Cyanocobalamin TAB* 500 MCG PO SCH (11:55)
[2017-05-04] MEDS: Acetaminophen TAB* 325 MG PO PRN (11:55)
[2017-05-04] MEDS: Ferrous Sulfate TAB* 325 MG PO SCH (11:56)
--- NOTE | 2017-05-04 12:42 | ECHO ---
Patient: PETEY URBAN [facility] Rec#: [id number] : 1930 Date: 05/04/2017 Age: 87y Height: 154.94 cm / 61.0 in Weight: 72.57 kg / 159.9 lbs Sex: F BSA: 1.72 Room#: 335 Admit Date#: 05/02/2017 Type: Inpatient Referring: Akanksha Carlson NP Reading: Darrius Cardoso MD Training Development Manager: Gretta Marie RDCS CC: Xiang Little MD Transthoracic Echocardiogram Indication: ACS BP: 175/68 HR: 93 Rhythm: NSR with PVCs Indications Acute Coronary Syndrome Findings History: DMII, CKD stage III, HTN, HLD, hypothyroidism, CAD, A-fib, gout. Technical Comments: The study quality is fair. The study is technically limited due to patient body habitus. The study was technically limited due to the patient's inability to lay in the left lateral decubitus position. Completed at 1115. The study was incomplete due to the patient's refusal to continue the exam. Left Ventricle: The left ventricular chamber size is normal. Moderate concentric left ventricular hypertrophy is observed.sigmoid septum. There is global hypokinesis of the left ventricle with minor regional variation.More pronounced inferior and mid to distal inferoseptal hypokinesis. There is mildly decreased left ventricular systolic function. The estimated ejection fraction is 45-50%. Abnormal left ventricular diastolic function is observed. The patient was unable to perform a Valsalva maneuver. Left Atrium: The left atrium is moderately dilated. Right Ventricle: The right ventricular cavity size is normal. The right ventricular global systolic function is normal. Right Atrium: The right atrium is moderately dilated. Aortic Valve: The aortic valve is trileaflet. Mild aortic leaflet calcification is visualized. There is mild aortic regurgitation. There is moderate aortic stenosis.by 2d and continuity. The mean gradient of the aortic valve is 11.31 mmHg. The peak instantaneous gradient of the aortic valve is 20.27 mmHg. The aortic valve area, by peak velocities, is calculated at 1.51 cm2. The aortic valve area, by VTI's, is calculated at 1.44 cm2. Mitral Valve: There is mitral annular calcification. The mitral valve leaflets are mildly thickened. There is mild mitral regurgitation. There is no evidence of mitral stenosis. Tricuspid Valve: The tricuspid valve leaflets are mildly thickened. There is moderate tricuspid regurgitation. The right ventricular systolic pressure is estimated at 44 mmHg. There is evidence of mild to moderate pulmonary hypertension. There is no tricuspid stenosis. Pulmonic Valve: The pulmonic valve appears normal. There is a trace pulmonic regurgitation. There is no pulmonic stenosis. Aorta: There is mild dilatation of the ascending aorta. The aortic arch is not well visualized. There is no dilation of the aortic root. Pulmonary Artery: The main pulmonary artery is not well visualized. Venous: The inferior vena cava is dilated. There is less than 50% respiratory change in the inferior vena cava dimension. Conclusions The study is technically sib due to patient body habitus. Moderate concentric left ventricular hypertrophy is observed. There is global hypokinesis of the left ventricle with minor regional variation. More pronounced inferior and mid to distal inferoseptal hypokinesis. There is mildly decreased left ventricular systolic function. The estimated ejection fraction is 45-50%. Abnormal left ventricular diastolic function is observed. The left atrium is moderately dilated. The right atrium is moderately dilated. There is mild aortic regurgitation. There is moderate aortic stenosis.by 2d and continuity. There is mild mitral regurgitation. There is moderate tricuspid regurgitation. There is evidence of mild to moderate pulmonary hypertension. There is mild dilatation of the ascending aorta. Compared to 06/2015, the EF has decreased from 50-55% and the Aortic stenosis has increased from mild then to moderate now. Measurements Name Value Normal Range RVIDd (AP) 2D 3 cm (0.9 - 2.6) RVDdMajor (2D) 3.5 cm (2.2 - 4.4) RVAW (2D) 0.7 cm (0.2 - 0.5) RAd ISD 4CH 5.4 cm (3.4 - 4.9) RA (A4C)W 5 cm (2.9 - 4.6) IVSd (2D) 1.5 cm (0.6 - 1) LVPWd (2D) 1.7 cm (0.6 - 1) LVIDd (2D) 4.2 cm (3.6 - 5.4) LVIDs (2D) 3 cm - LV FS (2D) 28 % (25 - 45) Aortic Annulus 2.1 cm (1.4 - 2.6) Ao root diameter (2D) 3 cm (2.1 - 3.5) Ascending Ao 4 cm (2.1 - 3.4) LA dimension (AP) 2D 5 cm (2.3 - 3.8) LAd ISD 4CH 5.5 cm (2.9 - 5.3) LA ISD 4CH W 4.9 cm (2.5 - 4.5) Name Value Normal Range LA ESV SP 4CH (A/L) 64 ml - LA ESV SP 2CH (A/L) 74 ml - LA ESV BP (A/L) 71 ml - LA ESV BP (A/L) index 41.26 ml/m2 - LA ESV SP 4CH (MOD) 59 ml - LA ESV SP 2CH (MOD) 70 ml - Name Value Normal Range MV E-wave Vmax 0.51 m/sec - MV deceleration time 93.56 msec - MV A-wave Vmax 1.07 m/sec - MV E:A ratio 0.48 ratio - LV septal e' Vmax 0.04 m/sec - LV lateral e' Vmax 0.05 m/sec - LV E:e' septal ratio 12.75 ratio - LV E:e' lateral ratio 10.2 ratio - Name Value Normal Range AV Vmax 2.25 m/sec - AV VTI 33.3 cm - AV peak gradient 20.27 mmHg - AV mean gradient 11.31 mmHg - LVOT diameter 2 cm - LVOT Vmax 1.07 m/sec - LVOT VTI 15.16 cm - LVOT peak gradient 4.6 mmHg - LVOT mean gradient 2.19 mmHg - BRENDA (continuity Vmax) 1.51 cm2 - BRENDA (continuity VTI) 1.44 cm2 - Name Value Normal Range TR Vmax 2.7 m/sec - TR peak gradient 29 mmHg - RAP 15 mmHg - RVSP 44 mmHg - IVC diameter 2.3 cm - Name Value Normal Range PV Vmax 1.35 m/sec - PV peak gradient 7.3 mmHg -
[2017-05-04] MEDS ORDERED: Bupivacaine 0.5% W/EPI SDV* 30 ML VIAL ONE ×2 (14:50→17:19)
--- NOTE | 2017-05-04 15:21 | PN ---
Subjective Date of Service: 05/04/17 Interval History: Ms. Liriano has only complained of pain to her hip today when asked by her son. Otherwise, communication is difficult due to the fact that she is severely hard of hearing, speaks only Luxembourgish and has dementia. She appears to be in no acute distress. Objective Active Medications: Acetaminophen (Tylenol Supp*) 650 mg PA Q4H PRN PRN Reason: FEVER/PAIN Acetaminophen (Tylenol Tab*) 650 mg PO Q4H PRN PRN Reason: pain/fever Last Admin: 05/04/17 11:55 Dose: 650 mg Atorvastatin Calcium (Lipitor*) 5 mg PO BEDTIME [facility] Last Admin: 05/04/17 00:10 Dose: Not Given Cyanocobalamin (Vitamin B12 Tab*) 1,[facility] [place] Last Admin: 05/04/17 11:55 Dose: 1,000 mcg Dextrose (D50w Syringe 50 Ml*) 12.5 gm IV PUSH .FOR FS < 60 - SS PRN PRN Reason: FS < 60 Diltiazem HCl (Cardizem Cd Cap*) 120 mg PO [facility] Last Admin: 05/04/17 09:54 Dose: 120 mg Ferrous Sulfate (Ferrous Sulfate Tab*) 325 mg [facility] [place] Last Admin: 05/04/17 11:56 Dose: Not Given Heparin Sodium (Porcine) (Heparin Vial(*)) 5,000 units SUBCUT Q8HR [facility] Last Admin: 05/04/17 14:35 Dose: 5,000 units Lactated Ringer's (Lactated Ringers 1000 Ml Bag*) 1,000 mls @ 80 mls/hr IV PER RATE [facility] Insulin Human Lispro (Humalog*) 0 units SUBCUT Q6HR [facility] PRN Reason: Protocol Last Admin: 05/04/17 12:13 Dose: 2 units Isosorbide Mononitrate (Imdur Er Tab*) 60 mg PO [facility] Last Admin: 05/04/17 09:54 Dose: 60 mg Levothyroxine Sodium (Synthroid Tab*) 50 mcg PO DAILY@0600 [facility] Last Admin: 05/04/17 06:18 Dose: 50 mcg Metoprolol Succinate (Toprol Xl Tab*) 25 [facility] [place] Last Admin: 05/04/17 11:55 Dose: 25 mg Morphine Sulfate (Morphine Inj (Syringe)*) 2 mg IV Q2H PRN PRN Reason: PAIN Last Admin: 05/04/17 04:34 Dose: 2 mg Vital Signs 05/03/17 05/03/17 05/03/17 15:23 16:49 17:49 Temperature 97.5 F Pulse Rate 89 Respiratory 21 18 16 Rate Blood Pressure 150/78 (mmHg) O2 Sat by Pulse 96 Oximetry 05/03/17 05/03/17 05/03/17 19:13 19:35 19:48 Temperature Pulse Rate 84 Respiratory 17 16 16 Rate Blood Pressure 134/84 (mmHg) O2 Sat by Pulse 93 Oximetry 05/03/17 05/03/17 05/03/17 21:54 22:54 23:35 Temperature Pulse Rate 88 Respiratory 16 16 16 Rate Blood Pressure 154/78 (mmHg) O2 Sat by Pulse 95 Oximetry 05/04/17 05/04/17 05/04/17 03:57 04:34 05:34 Temperature 99.9 F Pulse Rate 86 Respiratory 16 16 16 Rate Blood Pressure 175/86 (mmHg) O2 Sat by Pulse 96 Oximetry 05/04/17 05/04/17 05/04/17 07:28 08:00 11:27 Temperature 99.1 F 99.6 F Pulse Rate 82 78 Respiratory 13 16 15 Rate Blood Pressure 170/50 144/71 (mmHg) O2 Sat by Pulse 94 92 Oximetry Oxygen Devices in Use Now: None Appearance: Elderly female lying in bed in NAD Eyes: No Scleral Icterus Ears/Nose/Mouth/Throat: Mucous Membranes Moist Neck: Trachea Midline Respiratory: Symmetrical Chest Expansion and Respiratory Effort, Clear to Auscultation Cardiovascular: NL Sounds; No Murmurs; No JVD, No Edema Abdominal: NL Sounds; No Tenderness; No Distention Lymphatic: No Cervical Adenopathy Extremities: No Edema Skin: No Rash or Ulcers Neurological: - - Alert at times, moves all extremities independently though doesnt follow my command Nutrition: Taking PO's Result Diagrams: 05/02/17 22:10 05/02/17 22:10 Microbiology and Other Data: Microbiology 05/03/17 03:04 Nasal Screen MRSA (PCR)([facility]) - Final Nasal Mrsa Negative Assess/Plan/Problems-Billing Assessment: Ms. Scales is an 87 yo female with a PMH of DM, HTN, and hypothyroidism who was admitted on 05/02/17 with right hip fracture. - Patient Problems (1) Closed right hip fracture Comment: Management per ortho with plan for OR today. Appreciate pre-operative evaluation by Dr. Cardoso given elevated trop, abnormal EKG, and abnormal echo. No further cardiac testing indicated though patient is high risk. Dr. Cardoso did recommend 1 unit PRBC for chronic anemia given she is evidencing possible demand ischemia. (2) Atrial fibrillation Comment: Continue cardizem for rate control. Not a candidate for anticoagulation because of frequent falls. (3) Coronary artery disease Comment: Asymptomatic. Continue metoprolol and imdur. (4) Diabetes Comment: BGs well controlled. Hold metformin. Continue lispro SSI coverage with meals. (5) Dyslipidemia Comment: Continue heart healthy diet. (6) Hypertension Comment: SBP 150s. Continue cardizem, metoprolol, and imdur. (7) Hypothyroidism Comment: Continue synthroid. (8) DNR (do not resuscitate) (9) DVT prophylaxis Comment: Heparin SQ. Status and Disposition: Inpatient.
[2017-05-04 15:43] LABS: Hematocrit 26 % (35-47); Hemoglobin 8.4 g/dl (12.0-16.0); Mean Corpuscular HGB Conc 32 g/dl (31-36); Mean Corpuscular Hemoglobin 31 pg (27-31); Mean Corpuscular Volume 96 fL (80-97); Mean Platelet Volume 9 um3 (7.4-10.4); Red Blood Count 2.72 10^6/ul (4.0-5.4); Red Cell Distribution Width 15 % (10.5-15)
[2017-05-04] MEDS ORDERED: KETAMINE HCL* 50 MG/ML 10 ML VIAL ONE (15:56)
[2017-05-04] MEDS ORDERED: Midazolam* 1 MG/ML 2 ML VIAL (2 MG) ONE (15:56)
[2017-05-04] MEDS ORDERED: fentaNYL* 50 MCG/ML 2 ML VIAL (100 MCG VIAL) ONE (15:56)
[2017-05-04] MEDS ORDERED: ceFAZolin 2 GM PREMIX(*) 2 GM/50 ML BAG IVPB ONE (15:56)
[2017-05-04 15:58] LABS: BUN/Creatinine Ratio 28.3 (8-20); Calcium 8.9 mg/dL (8.6-10.3); EGFR African American 63.2 (>60); EGFR Non-African American 49.2 (>60)
[2017-05-04] MEDS ORDERED: Propofol* 10 MG/ML 20 ML BTL IV PUSH ONE (15:59)
[2017-05-04] MEDS ORDERED: Ketorolac INJ* 30 MG/ML 1 ML VIAL ONE (15:59)
[2017-05-04] MEDS ORDERED: Ondansetron INJ* 2 MG/ML VIAL ONE (15:59)
[2017-05-04] MEDS ORDERED: Lidocaine 2% PF * 5 ML VIAL ONE (15:59)
[2017-05-04] MEDS ORDERED: Dexamethasone IV* 4 MG/ML 1 ML (4 MG) ONE (15:59)
[2017-05-04] MEDS ORDERED: Phenylephrine INJ* 10 MG/ML 1 ML VIAL (10 MG) ONE (17:26)
--- NOTE | 2017-05-04 17:57 | CONS ---
CC: Akanksha Carlson NP; Ede Ivan MD CARDIOLOGY CONSULTATION: DATE OF CONSULT: 05/04/17 REASON FOR CONSULT: Preoperative evaluation, non-ST elevation OH. HISTORY OF PRESENT ILLNESS: The history was obtained from Dr. Moncho Philip and the chart including prior echocardiograms from 2014 and a stress test from 2013 and her history and physical. This is an 87-year-old [place]ian female who has dementia and is not able to communicate even with a [place]ian house visitor. She has a history of hypertension, diabetes, coronary artery disease, atrial fibrillation, hyperlipidemia, and hypothyroidism. She is a resident at a correction that apparently presented with right hip fracture and is being considered for hip surgery. She was noted to have an elevated troponin of 0.8 on the and 0.42 on the ; she had an EKG with LVH and ST depressions anterolaterally which were present in 2013 but waxed and waned on previous EKGs. Of note, she had a stress test in April 2014 which revealed inferolateral LV infarct with inferior ischemia, intermediate risk. She also had echocardiograms performed in 2014 and today. She is unable to give a history of any symptoms. PAST MEDICAL HISTORY: Diabetes, chronic renal insufficiency stage 3, hypertension, hyperlipidemia, hypothyroidism, coronary artery disease, atrial fibrillation, gout, and dementia. PAST SURGICAL HISTORY: Includes cholecystectomy, bilateral cataracts. MEDICATIONS: As an inpatient include: 1. Acetaminophen. 2. Atorvastatin 5 mg at bedtime. 3. Vitamin B12 1000 mcg q.a.m. 4. Dextrose p.r.n. 5. Diltiazem long acting 120 mg daily. 6. Iron 325 mg q.a.m. 7. Heparin 5000 q.8 h. subcu. 8. Insulin Humalog as needed. 9. Imdur 60 mg q.a.m. 10. Synthroid 50 mcg a day. 11. Metoprolol XL 25 mg q.a.m. 12. Morphine 2 mg IV p.r.n. pain. ALLERGIES: CODEINE which caused nausea. FAMILY HISTORY: Noncontributory and unable to be obtained at this point in time. SOCIAL HISTORY: The chart from 05/02/17 reports that her family denies tobacco , alcohol or recreational drug use. She is a do not resuscitate. Her son is her healthcare proxy. REVIEW OF SYSTEMS: Unable to be obtained from the patient. PHYSICAL EXAM: She is a well-developed, well-nourished female, in no apparent distress. She said hi when I walked in the room but did not answer any other questions. She did not respond to any other interactions. Blood pressure 144/ 71 earlier in the day, pulse is 78, O2 sat is 92%. No significant JVD. Carotids are 2+. Cardiac Exam: S1, S2 with a 2/6 systolic ejection murmur at the left sternal border. Chest was clear. Abdomen: Bowel sounds present. Nontender. Femoral pulses intact. Distal pulses are intact with no edema. Neuro Exam: Unable to obtain. DIAGNOSTIC STUDIES/LAB DATA: White count of 14, hemoglobin of 8.4, hematocrit 26 down from 28 yesterday, and her hematocrit was 35 to 36 in March. Her troponin today was 0.42. On , her sodium was 141, potassium of 4.5, BUN 37 , creatinine 1.4. Troponin of 0.8. Her EKG from the revealed sinus rhythm with left axis, LVH, poor R-wave progression, possible anterior septal OH and lateral ST depressions and T-wave inversions raising the possibility of ischemia. This was somewhat similar on the EKG today. The EKG from April 18 revealed slightly less pronounced lateral ST depressions; however, the EKG from June 2015 revealed similar or more pronounced EKG changes. IMPRESSION: My impression is that Ms. Liriano has a history of hypertension, diabetes, hyperlipidemia, renal insufficiency, recent non-ST elevation myocardial infarction in the setting of a hip fracture, and dementia. She also has testing which suggests inferior inferolateral infarct and ischemia. Her overall ejection fraction is mildly reduced. She is at increased risk for cardiovascular morbidity and mortality. However, given her dementia and multiple comorbidities, advanced age, and the relatively low risk nature of the procedure, I do not think further cardiovascular evaluation is warranted at this point in time. Given her DNR status and current situation, I do not think she is a candidate for any aggressive interventions including cardiac catheterization. Further, I do not think repeat stress testing is going to help with decision making. I have discussed the case with Akanksha Carlson and Dr. Ede Ivan and Dr. Jenniffer Denney and I have recommended the followin. I would proceed with surgery as planned understanding that she is at increased risk for ischemia and infarct. 2. We will continue her nitrates, calcium channel blockers, and beta-grover perioperatively. 3. We will consider transfusing her to a hematocrit over 30 given the fact that she has dropped her hematocrit and is heading into surgery, and anemia will increase the likelihood of ischemia due to increased demand. 4. Followup for volume overload after transfusion and surgery. She may require p.r.n. diuretics. 5. She has xtou-du-autuxaaz aortic stenosis; therefore, I would avoid excessive afterload reduction. Given her mild systolic dysfunction, probable diastolic dysfunction and mild valvular disease, she is at risk for volume overload. 6. She is at risk for ischemia and infarct postop. However, given her DNR status, her dementia and the low likelihood that the interventions will benefit her, I would follow her conservatively postop and ensuring her volume status. If she becomes unstable, we could consider following troponins and EKGs, but it is unlikely to change her medical course. [id number]/[facility] #: [id number] ADDENDUM: Her echocardiogram from 05/04/17 revealed mildly reduced LV function with an EF of 45% to 50% with more pronounced inferior and ejl-qr-jyeeim inferior septal hypokinesis, abnormal diastolic function, moderate biatrial enlargement, mild aortic insufficiency, moderate aortic stenosis by 2D and continuity, mild MR, moderate TR, velw-og-cfequybu pulmonary hypertension, mild dilatation of the ascending aorta. Compared to June 2015, the EF has decreased slightly from 50% to 55%. The aortic stenosis increased from mild then to moderate now. I compared this study side by side and the wall motion abnormalities are similar. SHERIFD
--- NOTE | 2017-05-04 17:57 | CONS ---
CARDIOLOGY CONSULTATION: * ADDENDUM: Her echocardiogram from 05/04/17 revealed mildly reduced LV function with an EF of 45% to 50% with more pronounced inferior and umy-jy-jhijmo inferior septal hypokinesis, abnormal diastolic function, moderate biatrial enlargement, mild aortic insufficiency, moderate aortic stenosis by 2D and continuity, mild MR, moderate TR, odhe-ea-zuqepcai pulmonary hypertension, mild dilatation of the ascending aorta. Compared to June 2015, the EF has decreased slightly from 50% to 55%. The aortic stenosis increased from mild then to moderate now. I compared this study side by side and the wall motion abnormalities are similar. [id number]/[facility] #: [id number] MTDD
[2017-05-04] MEDS ORDERED: Acetaminophen IV 1GM/100ML * 100 ML IVPB ONE (18:10)
[2017-05-04] MEDS ORDERED: DiMENhydriNATE IV* 50 MG/ML VIAL IV PUSH PRN (18:10)
[2017-05-04] MEDS ORDERED: HYDROmorphone* 1 MG/ML 1 ML SYR IV PRN (18:10)
[2017-05-04] MEDS ORDERED: Labetalol IV* 5 MG/ML 20 ML VIAL ONE (19:20)
[2017-05-04] MEDS ORDERED: Labetalol IV* 5 MG/ML 20 ML VIAL IV PUSH ONE (19:26)
--- NOTE | 2017-05-04 19:39 | RAD ---
INDICATION: Right hip gamma nail ORIF, fall, fracture COMPARISONS: May 02, 2017 TECHNIQUE: Fluoroscopy was provided for a surgical procedure. Total fluoroscopy time is: 1 minute, 59 seconds FINDINGS: Spot images demonstrate internal fixation of the femoral neck IMPRESSION: FLUOROSCOPY WAS PROVIDED FOR A SURGICAL PROCEDURE CPT II Codes: 6045F
[2017-05-04] MEDS ORDERED: Acetaminophen IV 1GM/100ML * 100 ML ONE (20:36)
[2017-05-04] MEDS ORDERED: oxyCODONE/Acetamin 5/325 MG* TAB PO PRN (21:31)
[2017-05-05] MEDS: oxyCODONE/Acetamin 5/325 MG* TAB PO PRN ×4 (03:21→21:21)
[2017-05-05] MEDS: Insulin LISPRO* 1 UNITS UNIT SUBCUT SCH ×3 (05:56→17:47)
[2017-05-05] MEDS: Levothyroxine TAB* 50 MCG TAB PO SCH (05:57)
[2017-05-05 07:50] LABS: Hematocrit 28 % (35-47); Mean Corpuscular HGB Conc 32 g/dl (31-36); Mean Corpuscular Hemoglobin 30 pg (27-31); Mean Corpuscular Volume 95 fL (80-97); Mean Platelet Volume 9 um3 (7.4-10.4); Red Blood Count 2.97 10^6/ul (4.0-5.4); Red Cell Distribution Width 15 % (10.5-15); White Blood Count 12.7 10^3/ul (3.5-10.8)
[2017-05-05] MEDS: Enoxaparin(*) 40 MG/0.4 ML SYR SUBCUT SCH (08:19)
[2017-05-05] MEDS: ceFAZolin VIAL(*) 1 GM in NS 0.9% 50 ML* 50 ML IVPB SCH ×4 (08:19→15:59)
[2017-05-05] MEDS: Ferrous Sulfate TAB* 325 MG PO SCH (08:20)
[2017-05-05] MEDS: Cyanocobalamin TAB* 500 MCG PO SCH (08:20)
[2017-05-05] MEDS: Metoprolol Succinate XL TAB* 25 MG PO SCH (08:20)
[2017-05-05] MEDS: Isosorbide Mononitrate ER TAB* 60 MG PO SCH (08:20)
[2017-05-05] MEDS: Diltiazem CD CAP* 120 MG PO SCH (08:20)
--- NOTE | 2017-05-05 09:41 | PN ---
Progress Note - Progress Note SOAP: Subjective: No problems overnight per nursing. Objective: Patient looks comfortable. Responds intermittently to commands. Other times, didn't seem to acknowledge my commands. RLE: - Dressing c/d/i - Moving spontaneously right ankle and toes - DP pulse 2 +, CR less than 2 seconds Selected Entries 05/05/17 05/05/17 07:51 08:00 Temperature 98.3 F Pulse Rate 75 Respiratory 18 Rate Blood Pressure 141/73 (mmHg) O2 Sat by Pulse 99 Oximetry Laboratory Tests 05/04/17 05/05/17 15:30 07:01 WBC 12.7 H Hct 28 L Creatinine 1.06 H Assessment: POD 1 ORIF R hip intertroch fracture Plan: - WBAT RLE - PT - Lvx 40mg SC x 4 weeks postop - Dispo planning - Ancef 1gm q 8 hrs x 24 hrs postop - Pain control - Med manage by Hospitalist - Cards/Med can determine whether to transfuse for Hct 28.
--- NOTE | 2017-05-05 12:43 | PN ---
Subjective Date of Service: 05/05/17 Interval History: Ms. Loyd is not able to offer specific complaint due to her [place], dementia, and inability to speak Tajik. She appears to be in no acute distress. Objective Active Medications: Acetaminophen (Tylenol Supp*) 650 mg [place] Q4H PRN Acetaminophen (Tylenol Tab*) 650 mg PO Q4H PRN Atorvastatin Calcium (Lipitor*) 5 mg PO BEDTIME [facility] Cyanocobalamin (Vitamin B12 Tab*) 1,000 mcg PO QAM [facility] Dextrose (D50w Syringe 50 Ml*) 12.5 gm IV PUSH .FOR FS < 60 - SS PRN Diltiazem HCl (Cardizem Cd Cap*) 120 mg PO QAM [facility] Enoxaparin Sodium (Lovenox(*)) 40 mg SUBCUT DAILY [facility] Ferrous Sulfate (Ferrous Sulfate Tab*) 325 mg PO QAM [facility] Lactated Ringer's (Lactated Ringers 1000 Ml Bag*) 1,000 mls @ 100 mls/hr IV PER RATE [facility] Cefazolin Sodium 1 gm/ Sodium (Chloride) 50 mls @ 200 mls/hr IVPB Q8H [facility] Insulin Human Lispro (Humalog*) 0 units SUBCUT AC [facility] Isosorbide Mononitrate (Imdur Er Tab*) 60 mg PO QAM [facility] Levothyroxine Sodium (Synthroid Tab*) 50 mcg PO DAILY@0600 [facility] Magnesium Hydroxide (Milk Of Magnesia Liq*) 30 ml PO BID PRN Metoprolol Succinate (Toprol Xl Tab*) 25 mg PO QAM [facility] Morphine Sulfate (Morphine Inj (Syringe)*) 2 mg IV Q2H PRN Oxycodone/Acetaminophen (Percocet 5/325 Tab*) 1 tab PO Q4H PRN Oxycodone/Acetaminophen (Percocet 5/325 Tab*) 2 tab PO Q4H PRN Vital Signs 05/04/17 05/04/17 05/04/17 18:56 19:00 19:05 Temperature 98.1 F Pulse Rate 69 69 70 Respiratory 20 20 20 Rate Blood Pressure 183/90 199/96 189/83 (mmHg) O2 Sat by Pulse 100 100 99 Oximetry 05/04/17 05/04/17 05/04/17 19:10 19:15 19:30 Temperature Pulse Rate 69 80 80 Respiratory 20 20 20 Rate Blood Pressure 195/89 199/87 211/82 (mmHg) O2 Sat by Pulse 99 99 90 Oximetry 05/04/17 05/04/17 05/04/17 19:45 20:00 20:15 Temperature 98.1 F Pulse Rate 80 79 66 Respiratory 20 18 18 Rate Blood Pressure 172/75 178/74 165/62 (mmHg) O2 Sat by Pulse 99 99 99 Oximetry 05/04/17 05/04/17 05/04/17 20:30 21:04 22:10 Temperature 97.2 F 97.7 F Pulse Rate 71 73 73 Respiratory 18 20 17 Rate Blood Pressure 155/70 115/62 139/65 (mmHg) O2 Sat by Pulse 100 99 100 Oximetry 05/04/17 05/04/17 05/05/17 23:04 23:12 01:10 Temperature 97.5 F 97.7 F Pulse Rate 65 75 Respiratory 20 16 16 Rate Blood Pressure 109/68 111/63 (mmHg) O2 Sat by Pulse 100 100 Oximetry 05/05/17 05/05/17 05/05/17 03:13 03:21 05:21 Temperature 97.9 F Pulse Rate 71 Respiratory 16 18 18 Rate Blood Pressure 117/78 (mmHg) O2 Sat by Pulse 100 Oximetry 05/05/17 05/05/17 05/05/17 07:51 08:00 08:19 Temperature 98.3 F Pulse Rate 75 Respiratory 18 18 Rate Blood Pressure 141/73 (mmHg) O2 Sat by Pulse 99 100 Oximetry 05/05/17 10:19 Temperature Pulse Rate Respiratory 16 Rate Blood Pressure (mmHg) O2 Sat by Pulse Oximetry Oxygen Devices in Use Now: None Appearance: Elderly female sitting up in chair in NAD Eyes: No Scleral Icterus Ears/Nose/Mouth/Throat: Mucous Membranes Moist Neck: Trachea Midline Respiratory: Symmetrical Chest Expansion and Respiratory Effort, Clear to Auscultation Cardiovascular: NL Sounds; No Murmurs; No JVD, No Edema Abdominal: NL Sounds; No Tenderness; No Distention Extremities: No Edema Skin: No Rash or Ulcers Neurological: NL Muscle Strength and Tone, - - Alert, says hello but does not interact further, seen to move all extremities independently though doesn't follow commands Nutrition: Taking PO's Result Diagrams: 05/05/17 07:01 05/04/17 15:30 Microbiology and Other Data: Microbiology 05/03/17 03:04 Nasal Screen MRSA (PCR)([facility]) - Final Nasal Mrsa Negative Assess/Plan/Problems-Billing Assessment: Ms. Scales is an 87 yo female with a PMH of DM, HTN, and hypothyroidism who was admitted on 05/02/17 with right hip fracture. - Patient Problems (1) Closed right hip fracture Comment: POD # 1, management per ortho. Pain meds prn with bowel regimen. PT/ OT. Monitor H/H, stable thus far. (2) Atrial fibrillation Comment: Continue cardizem for rate control. Not a candidate for anticoagulation because of frequent falls. (3) Coronary artery disease Comment: Asymptomatic. Continue metoprolol and imdur. (4) Diabetes Comment: BGs well controlled. Hold metformin. Continue lispro SSI coverage with meals. (5) Dyslipidemia Comment: Continue heart healthy diet. (6) Hypertension Comment: SBP 150s. Continue cardizem, metoprolol, and imdur. (7) Hypothyroidism Comment: Continue synthroid. (8) DNR (do not resuscitate) (9) DVT prophylaxis Comment: Heparin SQ. Status and Disposition: Inpatient.
[2017-05-05] MEDS: Magnesium Hydroxide LIQ* 30 ML UDC PO PRN (15:59)
[2017-05-05] MEDS: Docusate CAP* 100 MG PO SCH (21:18)
[2017-05-05] MEDS: Atorvastatin* 10 MG TAB PO SCH (21:20)
--- NOTE | 2017-05-06 03:31 | OP ---
OPERATIVE REPORT: DATE OF OPERATION: 05/04/17 DATE OF : 32 SURGEON: Ede Ivan MD FAMILY RESOURCE SPECIALIST: CESIA Varghese ANESTHESIOLOGIST: Dr. Denney. ANESTHESIA: General anesthesia, local anesthesia. PRE-OP DIAGNOSIS: Right hip intertrochanteric fracture, displaced. POST-OP DIAGNOSIS: Right hip intertrochanteric fracture, displaced. OPERATIVE PROCEDURE: Open reduction internal fixation of right hip intertrochanteric fracture, disp laced, with intramedullary nail, short. ANTIBIOSIS: 2 g Ancef IV. IV FLUIDS: 1600 cc crystalloid. SPECIMEN: None. COMPLICATIONS: None. ESTIMATED BLOOD LOSS: Minimal. IMPLANT: Brice gamma nail, short 125 degree, 11 mm. INDICATIONS FOR PROCEDURE: Patient is an 87-year-old woman who was in a snf, who has signi ficant dementia, and ambulates only minimally, homebound, with a walker, at baseline, who has had mu ltiple recent falls and presented to the [facility] on 05/02/17 with a diagnosis of a right hip intertrochanteric fracture, established by x-ray imaging at her snf. The patient's history was obtained exclusively from her son as the patient is Yoruba speaking only an d only minimally responds to commands. The patient's son, with whom I spoke several times by teleph one, describes that the patient does not leave her unit much within the snf. The patient o nly, on certain visits, recognizes her son. The patient's son was not entirely clear about timing, but thinks that the patient fell 3 to 4 weeks ago and subsequently had contralateral left hip pain. Patient was seen at the [facility] at some point and x-rays showed no fracture. The patient's son believes that she fell approximately 1 week ago and started complaining of right hip p ain. Patient eventually had right hip x-rays, which showed a fracture and the patient was transferr ed to the [facility]. Reading through the history and physicals of my orthopedic lamberto eague and ED and hospitalist staff, the timing was a little bit different at each and so I think the patient's son and the staff were not entirely clear on the timing of her most recent injury produci ng much right hip pain. The patient's son is somewhat off the grid and does not have an email address. The patient was admitted by the hospitalist service and was first consulted with by my colleague, Dr Corey Dubon, who then arranged for me to see and operate on the patient. On exam preoperatively, the patient had a shortened externally rotated right lower extremity. She h ad pain with passive range of motion of the hip, but had skin intact overlying that right hip. Samanta ent had no pain with passive range of motion of the left hip. The patient's blood pressure was high , 170/50, but her pulse rate was within normal limits. Her white blood count had been 14.5 at [facility], but the urinalysis was negative and there was no clear source of infection otherwise. The samanta ent had a hematocrit at admission of 28. The patient had a troponin I at admission of 0.8, which de clined to 0.42 on the date of surgery, when I first met her. The hospitalist service ultimately determined that because of some EKG changes in lateral leads as w ell as the slightly high albeit reducing, trending down, troponins, an echocardiogram and Cardiology consult was warranted. Echocardiogram showed some deterioration of heart function since prior echo cardiogram including decreased ejection fraction. Cardiology ultimately cleared the patient but rec ommended transfusion, 1 unit, prior to surgery. The patient had not had a CBC since the date of admission, so Anesthesia and I ordered stat labs pre operatively to assess the patient's most recent hematocrit, and we ordered 1 unit of packed red bloo d cells, which ran into the patient prior to the start of the procedure. Her hematocrit also return ed as a 26. The patient was cleared by Medicine and Cardiology to proceed. DESCRIPTION OF PROCEDURE: Preoperative consent was obtained by telephone from the patient's son, he r only direct surviving kin, with a witness. Operative extremity was marked on the floor. The samanta ent was taken back to the operating room and placed supine on the fracture table. The patient was sedated and intubated. The fracture table was assembled. Perineal post. Operative leg in traction, etc. The C-arm was bro ught in. Preoperative x-rays had demonstrated varus angulation at the fracture site. Radiology had even commented on possible new-onset callus, although I did not agree with that. I performed a liv sed reduction of the right hip fracture utilizing mostly longitudinal traction but a small amount of internal rotation. This produced an excellent reduction at the fracture site visualized in both th e anterior, posterior, and lateral coronal and sagittal planes. Prep and drape. Surgical time-out was performed. A longitudinal incision was made, stab hole, 8 cm proximal to the proximal tip of the greater tubero sity. A pin was entered. Under C-arm utilization, the pin was entered through the greater trochant lily proximal tip. Close enough at this point to the center anterior to posterior. I then incised the skin overlying that pin as well as the hip abductor fascia along that pin. I could then palpate proximal tip of the greater tuberosity. I improved the position of that pin, s o that it was nicely placed in the anterior to posterior dimension as well as medial to lateral. I next inserted the entry reamer and its sleeve. I reamed proximally. I next placed the short gamma nail from [employer]. Stab incision was made and lag screw was next placed up into the femoral head. Prior to screw being placed, the pin was placed and over-reamed. I compressed at the fracture site using this lag screw. It was noted to be prominent laterally, but patient has significant subcutaneous tissue and I will err on the side of making the lag screw too long to make sure that there is good torsional control at the screw-nail junction. A locking screw was then placed distally through the nail after a skin incision had been made and th e bone had been drilled. Final x-ray views demonstrated adequacy of reduction and excellent position of hardware. Irrigation of all wounds. Closure of the hip abductor fascia was performed with waciuc-ka-kzwij stitches usin g Vicryl 0 suture. Closure of the subcutaneous tissue and all 3 skin incisions were closed with bur ied simple stitches using Vicryl 2-0 suture. Closure of the skin was next performed with jigar. Xeroform, 4x4's, ABDs, foam tape. It should be noted that the leg was taken out of traction before the fracture site was compressed using the lag screw- nail interface. The patient was lightened of sedation and extubated. The patient was transferred to the PACU and ev entually transferred to the floor, returning to the medical service. DISPOSITION: Postoperatively, the patient will receive Percocet for pain control. She will have DVT prophylaxis with Lovenox 40 mg subcu daily x4 weeks. She will receive Ancef 1 g IV q. 8 hours for 24 hours for infection prophylaxis. She will be weightbearing as tolerated on right lower extremity and will work with physical therapy, out of bed, activity as tolerated. She will be discharged to rehab or her snf when safe and appropriate. She will have a hematocrit checked the morning after surgery and additional transfusions as needed. The patient received sufficient IV fluid duri ng the procedure and hematocrit was sufficiently high, 28, after transfusion, such that no additiona l units were transfused. The patient will be on the hospitalist service postoperatively with me fahad faustinuing to consult. [id number]/[facility] #: [id number]
[2017-05-06] MEDS: Levothyroxine TAB* 50 MCG TAB PO SCH (06:15)
--- NOTE | 2017-05-06 07:58 | PN ---
Subjective Date of Service: 05/06/17 Interval History: Ms. Liriano is not able to express herself due to dementia, being hard of hearing and speaking only Sinhala but she appears in no acute distress. Objective Active Medications: Acetaminophen (Tylenol Supp*) 650 mg TN Q4H PRN Acetaminophen (Tylenol Tab*) 650 mg PO Q4H PRN Atorvastatin Calcium (Lipitor*) 5 mg PO BEDTIME DIONY Cyanocobalamin (Vitamin B12 Tab*) 1,000 mcg PO QAM DION[facility] Dextrose (D50w Syringe 50 Ml*) 12.5 gm IV PUSH .FOR FS < 60 - SS PRN Diltiazem HCl (Cardizem Cd Cap*) 120 mg PO QAM DION[facility] Docusate Sodium (Colace Cap*) 100 mg PO BEDTIME DIONY Enoxaparin Sodium (Lovenox(*)) 40 mg SUBCUT DAILY DIONY Ferrous Sulfate (Ferrous Sulfate Tab*) 325 mg PO QAM [facility] Lactated Ringer's (Lactated Ringers 1000 Ml Bag*) 1,000 mls @ 100 mls/hr IV PER RATE [facility] Insulin Human Lispro (Humalog*) 0 units SUBCUT AC [facility] Isosorbide Mononitrate (Imdur Er Tab*) 60 mg PO QAM DION[facility] Levothyroxine Sodium (Synthroid Tab*) 50 mcg PO DAILY@0600 DION[facility] Magnesium Hydroxide (Milk Of Magnesia Liq*) 30 ml PO BID PRN Metoprolol Succinate (Toprol Xl Tab*) 25 mg PO QAM DION[facility] Morphine Sulfate (Morphine Inj (Syringe)*) 2 mg IV Q2H PRN Oxycodone/Acetaminophen (Percocet 5/325 Tab*) 1 tab PO Q4H PRN Oxycodone/Acetaminophen (Percocet 5/325 Tab*) 2 tab PO Q4H PRN Vital Signs 05/05/17 05/05/17 05/05/17 08:00 08:19 10:19 Temperature Pulse Rate Respiratory 18 18 16 Rate Blood Pressure (mmHg) O2 Sat by Pulse 100 Oximetry 05/05/17 05/05/17 05/05/17 12:02 15:44 15:59 Temperature 97.6 F 99.4 F Pulse Rate 74 80 Respiratory 21 18 Rate Blood Pressure 116/58 121/61 (mmHg) O2 Sat by Pulse 95 96 Oximetry 05/05/17 05/05/17 05/05/17 16:00 17:59 19:25 Temperature 98.9 F Pulse Rate 78 Respiratory 18 21 Rate Blood Pressure 121/59 (mmHg) O2 Sat by Pulse 96 96 Oximetry 05/05/17 05/05/17 05/05/17 21:00 21:21 23:21 Temperature Pulse Rate Respiratory 18 18 18 Rate Blood Pressure (mmHg) O2 Sat by Pulse Oximetry 05/05/17 23:26 Temperature 98.1 F Pulse Rate 68 Respiratory 16 Rate Blood Pressure 142/67 (mmHg) O2 Sat by Pulse 96 Oximetry Oxygen Devices in Use Now: None Appearance: Elderly female sitting up in chair in NAD Eyes: No Scleral Icterus Ears/Nose/Mouth/Throat: Mucous Membranes Moist Neck: Trachea Midline Respiratory: Symmetrical Chest Expansion and Respiratory Effort, Clear to Auscultation Cardiovascular: NL Sounds; No Murmurs; No JVD, No Edema Abdominal: NL Sounds; No Tenderness; No Distention Lymphatic: No Cervical Adenopathy Extremities: No Edema Skin: No Rash or Ulcers Neurological: NL Muscle Strength and Tone, - - Alert, unable to assess orientation Nutrition: Taking PO's Result Diagrams: 05/05/17 07:01 05/04/17 15:30 Microbiology and Other Data: Microbiology 05/03/17 03:04 Nasal Screen MRSA (PCR)(EARLINE) - Final Nasal Mrsa Negative Assess/Plan/Problems-Billing Assessment: Ms. Scales is an 87 yo female with a PMH of DM, HTN, and hypothyroidism who was admitted on 05/02/17 with right hip fracture. - Patient Problems (1) Closed right hip fracture Comment: POD # 2, management per ortho. Pain meds prn with bowel regimen. PT/ OT. Monitor H/H, stable thus far. (2) Atrial fibrillation Comment: Continue cardizem for rate control. Not a candidate for anticoagulation for stroke prevention because of frequent falls. (3) Coronary artery disease Comment: Asymptomatic. Continue metoprolol and imdur. (4) Diabetes Comment: BGs ~ 200. Hold metformin. Increase lispro SSI coverage with meals. (5) Dyslipidemia Comment: Continue heart healthy diet. (6) Hypertension Comment: SBP 150s. Continue cardizem, metoprolol, and imdur. (7) Hypothyroidism Comment: Continue synthroid. (8) DNR (do not resuscitate) (9) DVT prophylaxis Comment: Heparin SQ. Status and Disposition: Inpatient.
[2017-05-06] MEDS: Isosorbide Mononitrate ER TAB* 60 MG PO SCH (09:18)
[2017-05-06] MEDS: Magnesium Hydroxide LIQ* 30 ML UDC PO PRN (09:18)
[2017-05-06] MEDS: Ferrous Sulfate TAB* 325 MG PO SCH (09:19)
[2017-05-06] MEDS: Acetaminophen TAB* 325 MG PO PRN ×2 (09:19→20:57)
[2017-05-06] MEDS: Enoxaparin(*) 40 MG/0.4 ML SYR SUBCUT SCH (09:19)
[2017-05-06] MEDS: Metoprolol Succinate XL TAB* 25 MG PO SCH (09:19)
[2017-05-06] MEDS: Cyanocobalamin TAB* 500 MCG PO SCH (09:20)
[2017-05-06] MEDS: Diltiazem CD CAP* 120 MG PO SCH (09:25)
[2017-05-06] MEDS: Insulin LISPRO* 1 UNITS UNIT SUBCUT SCH ×4 (09:25→17:59)
--- NOTE | 2017-05-06 11:01 | PN ---
Progress Note - Progress Note SOAP: Subjective: [Language barrier. Pt appears to be comfortable] Objective: [Alert. Sitting in chair in NAD. Dressing changed this morning by nursing. C/D/I calf soft NT Distal NVI, gross motor intact distally Vital Signs: Temp Pulse Resp BP Pulse Ox 98.3 F 73 16 150/81 100 05/06/17 08:38 05/06/17 08:38 05/06/17 08:38 05/06/17 08:38 05/06/17 08:38 Laboratory Results - last 24 hr 05/05/17 05/05/17 05/06/17 11:33 17:26 08:16 POC Glucose (mg/dL) 210 H 212 H 158 H ] Assessment: [87 yo male s/p R hip TFN POD #2] Plan: [Con't pain management PT/OT WBAT RLE Lovenox for DVT prophylaxis (clarified with Akanksha Carlson MANAGER WILLOW) Medicine following]
[2017-05-06] MEDS ORDERED: Bisacodyl SUPP* 10 MG SUPP PR PRN (17:28)
[2017-05-06] MEDS: Atorvastatin* 10 MG TAB PO SCH (20:58)
[2017-05-06] MEDS: Docusate CAP* 100 MG PO SCH (20:58)
[2017-05-07] MEDS: Acetaminophen TAB* 325 MG PO PRN ×2 (04:53→13:00)
[2017-05-07] MEDS: Levothyroxine TAB* 50 MCG TAB PO SCH (04:56)
[2017-05-07 09:20] LABS: Hematocrit 32 % (35-47); Hemoglobin 10.1 g/dl (12.0-16.0); Mean Corpuscular HGB Conc 32 g/dl (31-36); Mean Corpuscular Hemoglobin 30 pg (27-31); Mean Corpuscular Volume 95 fL (80-97); Mean Platelet Volume 9 um3 (7.4-10.4); Red Blood Count 3.35 10^6/ul (4.0-5.4); Red Cell Distribution Width 16 % (10.5-15); White Blood Count 14.4 10^3/ul (3.5-10.8)
[2017-05-07] MEDS: Insulin LISPRO* 1 UNITS UNIT SUBCUT SCH ×2 (09:35→12:45)
[2017-05-07] MEDS: Diltiazem CD CAP* 120 MG PO SCH (09:44)
[2017-05-07] MEDS: Cyanocobalamin TAB* 500 MCG PO SCH (09:44)
[2017-05-07] MEDS: Ferrous Sulfate TAB* 325 MG PO SCH (09:44)
[2017-05-07] MEDS: Isosorbide Mononitrate ER TAB* 60 MG PO SCH (09:44)
[2017-05-07] MEDS: Metoprolol Succinate XL TAB* 25 MG PO SCH (09:44)
[2017-05-07] MEDS: Enoxaparin(*) 40 MG/0.4 ML SYR SUBCUT SCH (09:45)
[2017-05-07 09:59] LABS: BUN/Creatinine Ratio 34.4 (8-20); Calcium 8.7 mg/dL (8.6-10.3); EGFR African American 73.5 (>60); EGFR Non-African American 57.2 (>60)
--- NOTE | 2017-05-07 11:28 | PN ---
Progress Note - Progress Note SOAP: Subjective: []Patient seen at bedside. Confused. Resting comfortably. Objective: [] Vital Signs Temp 98.5 F 05/07/17 07:28 Pulse 81 05/07/17 07:28 Resp 16 05/07/17 07:28 BP 181/80 05/07/17 07:28 Pulse Ox 97 05/07/17 07:28 Intake & Output 05/06/17 05/07/17 05/07/17 18:59 06:59 18:59 Intake Total 960 710 Output Total 300 200 Balance 660 710 -200 Intake: IVPB 0 ABX - CEFEPIME 0 LR 0 Oral 960 710 Output: Urine 300 200 Other: Estimated Void Large # Bowel Movements 0 3 Estimated Stool Amount Large Large Laboratory Results - last 24 hr 05/06/17 05/06/17 05/07/17 11:54 17:03 09:12 WBC 14.4 H RBC 3.35 L Hgb 10.1 L Hct 32 L MCV 95 MCH 30 MCHC 32 RDW 16 H Plt Count 377 MPV 9 Neut % (Auto) 69.5 Lymph % (Auto) 18.8 L Walker % (Auto) 7.9 Eos % (Auto) 3.3 Baso % (Auto) 0.5 Absolute Neuts (auto) 10.0 H Absolute Lymphs (auto) 2.7 Absolute Monos (auto) 1.1 H Absolute Eos (auto) 0.5 Absolute Basos (auto) 0.1 Absolute Nucleated RBC 0 Nucleated RBC % 0 Sodium Potassium Chloride Carbon Dioxide Anion Gap BUN Creatinine Est GFR ( Amer) Est GFR (Non-Af Amer) BUN/Creatinine Ratio Glucose POC Glucose (mg/dL) 62 L 172 H Calcium 05/07/17 09:12 WBC RBC Hgb Hct MCV MCH MCHC RDW Plt Count MPV Neut % (Auto) Lymph % (Auto) Walker % (Auto) Eos % (Auto) Baso % (Auto) Absolute Neuts (auto) Absolute Lymphs (auto) Absolute Monos (auto) Absolute Eos (auto) Absolute Basos (auto) Absolute Nucleated RBC Nucleated RBC % Sodium 139 Potassium 4.0 Chloride 107 Carbon Dioxide 25 Anion Gap 7 BUN 32 H Creatinine 0.93 Est GFR ( Amer) 73.5 Est GFR (Non-Af Amer) 57.2 BUN/Creatinine Ratio 34.4 H Glucose 149 H POC Glucose (mg/dL) Calcium 8.7 Right hip dressings taken down, minimal drainage. Wounds all benign New 4x4s and tega derm applied no significant edema RLE distally 1+ pedal pulse Assessment: []s/p Right hip Gamma nail for IT fracture hip POD #3 Plan: []Discharge to SNF rehab today WBAT RLE Follow up with Dr. Ivan in 10-14 days in office Continue Lovenox 4 weeks
[2017-05-07 11:56] VITALS: BP 134/80
--- NOTE | 2017-05-07 13:54 | DS ---
CC: Anika Ly NP at [facility] * DISCHARGE SUMMARY: DATE OF ADMISSION: 05/02/17 DATE OF DISCHARGE: 05/07/17 PRIMARY CARE PROVIDER: Anika Ly NP at [facility]. DISCHARGING PROVIDER: CESIA Dooley. SUPERVISING PHYSICIAN: Jayla Topete MD. * (DICTATED B6Y CESIA DOOLEY) ORTHOPEDIC SURGEON: Ede Ivan MD. CONSULTING GRINDING SUPERVISOR: Darrius Cardoso MD. PRIMARY DISCHARGE DIAGNOSES: 1. Right hip fracture, status post open reduction internal fixation with intramedullary nail by Dr. Ivan, 05/04/17. 2. Coronary artery disease with likely recent non-ST elevation myocardial infarction. The patient is asymptomatic. 3. Postoperative blood loss anemia requiring 1 unit of packed red blood cells. SECONDARY DISCHARGE DIAGNOSES: 1. Atrial fibrillation - rate controlled and not chronically anticoagulated due to frequent falls. 2. Diabetes - non insulin dependent. 3. Hyperlipidemia. 4. Hypertension. 5. Hypothyroidism. DISCHARGE MEDICATIONS: 1. Acetaminophen 1000 mg p.o. t.i.d. as needed for pain or fever. 2. Allopurinol 100 mg p.o. daily. 3. Aspirin 81 mg p.o. daily. 4. Vitamin D3 of 2000 units p.o. daily. 5. Vitamin B12 of 1000 mcg p.o. daily. 6. Diltiazem 120 mg p.o. daily. 7. Lovenox 40 mg subcu daily x4 weeks through June 01. 8. Ferrous sulfate 325 mg p.o. daily. 9. Isosorbide mononitrate extended release 60 mg p.o. daily. 10. Lactase 9000 units p.o. at meal time. 11. Levothyroxine 50 mcg p.o. daily. 12. Lovastatin 20 mg p.o. at bedtime. 13. Metoprolol succinate 25 mg p.o. daily. 14. Metformin 1000 mg p.o. twice daily. 15. Ultram 50 mg p.o. twice daily as needed for pain. MEDICATION CHANGES: Lovenox x4 weeks. HOSPITAL IMAGIN. CT of the pelvis demonstrates comminuted right intertrochanteric fracture with impaction in varus angulation with some suggestion of remodeling consisted with early healing response, surrounding edema and infiltrative hematoma, approximately 3.1 cm at largest dimension. Partially visualized indeterminant compression fracture of L4 with approximately 50% height lost. 2. X-ray of the femur shows comminuted, impacted intertrochanteric fracture of the femoral neck with varus angulation. 3. X-ray of the pelvis shows comminuted intertrochanteric fracture with impaction in varus angulation. 4. EKG showed a sinus rhythm with inverted T-waves in V4, 5, and 6, which appeared to be new when compared to old imaging. 5. Transthoracic echocardiogram showed moderate LVH, global hypokinesis of the left ventricle with minor regional variation, more pronounced inferior and mid to distal inferior septal hypokinesis. EF of 45 to 50%. Moderate aortic stenosis. Moderate tricuspid regurg. [id number] pulmonary hypertension. HOSPITAL COURSE: This is an 87-year-old female with fairly advanced dementia as well as atrial fibrillation, not previously on anticoagulation due to frequent falls as well as ban-yjmpufn-nuipqbkyd diabetes, hypertension, hyperlipidemia, and hypothyroidism who was brought to the emergency department with concern for right hip fracture. The patient had sustained a fall a couple of weeks prior to admission and underwent x-rays at that time, which did not demonstrate a fracture. The patient subsequently was complaining of increased hip pain and the patient was referred to the emergency department for further evaluation. The patient had a displaced right intertrochanteric hip fracture that showed some early remodeling changes. The patient's initial H and P as well as communication throughout her hospital stay has been challenged as she has primarily Canadian speaking, but due to difficulty hearing and her relatively advanced dementia, she was unable to participate with the use of a obstetrician/gynecologist phone or reliably with other means of communication. Her son was contacted regarding her hospital stay. Initial EKG demonstrated new T-wave inversions and troponin was checked. It was initially elevated at 0.8 and on repeat to 0.4. Cardiology consultation was obtained with Dr. Cardoso, who suggested that the patient has a known history of coronary artery disease likely sustained a recent new non-ST elevation GA. Due to her age, comorbidities and relative low risk of the procedure, did recommend that further evaluation with cardiac stress testing or a coronary catheterization would be helpful in the decision making process. The patient underwent echocardiogram, which did not show any new wall motion changes. EF with slightly depressed at 40 to 45%. The patient underwent ORIF with intramedullary nail fixation by Dr. Ivan on 05/04/17, which the patient tolerated fairly well. The patient did receive 1 unit of packed red blood cells for postoperative anemia. Her hemoglobin at the time of discharge is 10.1, which appears to be near her baseline. The patient's participation with physical therapy seems to have been limited again due to the language barrier, subsequent difficulty hearing and her dementia complicating communication. DISPOSITION AND FOLLOWUP PLAN: The patient is being discharged back to [facility]. She can maintain weightbearing as tolerated on her surgical leg, which is the right and participate with physical therapy and occupational therapy. We recommend a total of 4 weeks of DVT prophylaxis with Lovenox, which will take us through June 01 from the date of surgery. She requires follow up with Dr. Ivan in his office in 10 to 14 days and that appointment has been made on her behalf for May 16 at 02:15 at his [facility] office. No imaging or labs studies are pending at the time of discharge. No additional follow up imaging or labs are necessary at this time. CESIA DOOLEY [id number]/[facility] #: [id number] [facility]PITALMelida
== END 2017-05-07 13:20 | DRG 480 ==
LOC: ED 17:58 → SSU 22:04
PROVIDERS: ADMIT Internal Medicine; ATTEND Internal Medicine
PROC: 30233N1 Transfusion of Nonautologous Red Blood Cells into Peripheral Vein, Percutaneous Approach (ICD-10-PCS; 2017-05-04)
PROC: 0QSB36Z Reposition Right Lower Femur with Intramedullary Internal Fixation Device, Percutaneous Approach (ICD-10-PCS; principal; 2017-05-04 11:15)
DX: S72.141A Displaced intertrochanteric fracture of right femur, initial encounter for closed fracture (principal); I21.4 Non-ST elevation (NSTEMI) myocardial infarction; F03.90 Unspecified dementia, unspecified severity, without behavioral disturbance, psychotic disturbance, mood disturbance, and anxiety; D62 Acute posthemorrhagic anemia; E11.22 Type 2 diabetes mellitus with diabetic chronic kidney disease; I13.10 Hypertensive heart and chronic kidney disease without heart failure, with stage 1 through stage 4 chronic kidney disease, or unspecified chronic kidney disease; I48.91 Unspecified atrial fibrillation; W18.30XA Fall on same level, unspecified, initial encounter; Y92.9 Unspecified place or not applicable; E78.5 Hyperlipidemia, unspecified; E03.9 Hypothyroidism, unspecified; N18.3 Chronic kidney disease, stage 3 (moderate); I25.10 Atherosclerotic heart disease of native coronary artery without angina pectoris; Z91.81 History of falling; Z79.84 Long term (current) use of oral hypoglycemic drugs; Z79.1 Long term (current) use of non-steroidal anti-inflammatories (NSAID); Z79.82 Long term (current) use of aspirin; Z79.899 Other long term (current) drug therapy; Z88.5 Allergy status to narcotic agent; Z66 Do not resuscitate; M81.0 Age-related osteoporosis without current pathological fracture; M10.9 Gout, unspecified; I35.0 Nonrheumatic aortic (valve) stenosis
CPT/HCPCS: 36415; 72192; 76000; 80048; 80053; 81003; 81015; 84484; 85025; 85027; 85610; 86850; 86900; 86901; 86922; 87641; 93005; 93306; A9270-GY; J0690; J1100; J1644; J1650; J1885; J2250; J2270; J2405; J2704; J3010; P9040

== ENCOUNTER 2017-06-08 09:58 | Emergency (ER) | payer MEDICARE, OTHER ==
--- NOTE | 2017-06-08 10:35 | ED ---
Head Injury - HPI Summary HPI Summary: 87 female presents via EMS. Per EMS patient had an [facility]itnessed [facility] at [facility] and sustained a small laceration to the right forehead. Patient has history of dementia and is currently being treated for C diff per EMS. Patient also does not speak maltese. An shake packer was attempted however patient would not respond due to her AMS from dementia and hard of hearing. Spoke with [facility] to get a more thorough history as I was unable to obtain from patient. [facility] stated patient is on lovenox, injury occred around 9:25am. she was laying on her right side and was not unconscious. She recently had an ORIF of right hip. She is at her baseline mental status. She was not complaining of any pain beside the bump on her head and a headache. She denies does not typically ambulate on her own which is what she was trying to do when she fell. Son arrived later throughout visit and was able to give more information as well and interpret. - History Of Current Complaint Chief Complaint: EDLacSutureRecheck Stated Complaint: FALL Time Seen by Provider: 06/08/17 10:02 Hx Obtained From: Family/Director Acute - [facility] and son, EMS Mechanism Of Injury: Blunt Trauma, Fall From A Standing Position - unwittenessed Onset/Duration: Started Hours Ago, Traumatic Onset of Pain: Immediate Severity Currently: None Pain Intensity: 0 Pain Scale Used: 0-10 Numeric Location of Head Injury: Frontal - right forehead Character: Unable to describe Associated Signs And Symptoms: Swelling, Redness, Bruising - forehead hematoma Anticoagulant Therapy: Blood Thinners - Lovenox - Risk Factors SDH Risk Factor: Anticoagulent Use - Lovenox - Allergies/Home Medications Allergies/Adverse Reactions: Allergies Allergy/AdvReac Type Severity Reaction Status Date / Time Codeine Allergy Nausea Verified 07/10/15 21:40 Home Medications: Home Medications Metoprolol Tartrate TAB* [Lopressor TAB*] 12.5 mg PO 799,199906/08/17 [ History Confirmed 06/08/17] PMH/Surg Hx/FS Hx/Imm Hx Endocrine/Hematology History: Reports: Hx Diabetes - NIDDM, Hx Thyroid Disease Cardiovascular History: Reports: Hx Coronary Artery Disease - declined stents per patient's son, Hx Hypercholesterolemia, Hx Hypertension, Other Cardiovascular Problems/Disorders - afib Respiratory History: Denies: Hx Asthma, Hx Chronic Obstructive Pulmonary Disease (COPD) GI History: Reports: Hx Gall Bladder Disease, Hx Gastroesophageal Reflux Disease , Other GI Disorders - diverticulitis, GERD, C diff Musculoskeletal History: Reports: Hx Gout, Other Musculoskeletal History - pelvic fx sep 2014 Sensory History: Reports: Hx Cataracts, Hx Vision Problem, Hx Hearing Problem Denies: Hx Contacts or Glasses, Hx Hearing Aid Opthamlomology History: Reports: Hx Cataracts, Hx Vision Problem Denies: Hx Contacts or Glasses Neurological History: Reports: Hx Dementia - Surgical History Surgery Procedure, Year, and Place: cholesysectomy - Immunization History Immunizations Up to Date: Yes Infectious Disease History: Yes Infectious Disease History: 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 Denies: Traveled Outside the [place] in Last 30 Days - Family History Known Family History: Positive: Hypertension, Diabetes - Social History Alcohol Use: None Substance Use Type: Reports: None Smoking Status (MU): Never Smoked Tobacco Review of Systems - ROS Summary Review of Systems Summary: obtained through son asking patient Constitutional: Negative Eyes: Negative ENT: Negative Cardiovascular: Negative Respiratory: Negative Gastrointestinal: Negative Musculoskeletal: Negative Positive: Other - hematoma Positive: Headache All Other Systems Reviewed And Are Negative: Yes Physical Exam Triage Information Reviewed: Yes Vital Signs On Initial Exam: Initial Vitals Temp Pulse Resp BP Pulse Ox 98.8 F 82 20 141/92 93 06/08/17 09:59 06/08/17 09:59 06/08/17 09:59 06/08/17 09:59 06/08/17 09:59 Vital Signs Reviewed: Yes Completion Of Physical Exam Limited Due To: Dementia Appearance: Positive: Well-Appearing, No Pain Distress, Well-Nourished Skin: Positive: Warm, Skin Color Reflects Adequate Perfusion, Dry, Other - hematoma noted on right forehead with 2cm linear laceration. 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 rest of skin exam normal. Negative: Cold, Numb, Pale Eyes: Positive: Normal, EOMI, COLLEEN, Conjunctiva Clear ENT: Positive: Normal ENT inspection, Hearing grossly normal, Pharynx normal, TMs normal Neck: Positive: Supple, Nontender, No Lymphadenopathy Respiratory/Lung Sounds: Positive: Clear to Auscultation, Breath Sounds Present. Negative: Rales, Rhonchi, Wheezes Cardiovascular: Positive: Normal, RRR, Pulses are Symmetrical in both Upper and Lower Extremities. Negative: Murmur, Rub Abdomen Description: Positive: Nontender, No Organomegaly, Soft Bowel Sounds: Positive: Present Musculoskeletal: Positive: Normal, Strength/ROM Intact, Limited @ - right hip due to recent ORIF ~1 week ago, Pain @ - right forehead over hematoma, Other - all bony areas (neck, back, extremities, rib cage, pelvis) were palpated due to patient's mental status and without complaints of pain no obvious deformities, ecchymosis, step off or crepitus noted. no edema other than hematoma of right forehead Neurological: Positive: Normal, Sensory/Motor Intact, CN Intact II-III, Reflexes Intact, NV Bundle Intact Distally, Unable to Assess Gait, Facial Symmetry, Speech Normal - when speaking to son. Negative: Alert, Oriented to Person Place, Time - dementia, Facial Droop, Slurred Speech Psychiatric: Positive: Affect/Mood Appropriate - for dementia - [place] Coma Scale Best Eye Response: 4 - Spontaneous Best Motor Response: 6 - Obeys Commands Best Verbal Response: 5 - Oriented Coma Scale Total: 14 Procedures - Laceration/Wound Repair 1 Location: head - forehead, right side Anesthesia: Local, 2.0%, Lido Length, Depth and Shape: 2 cm, linear, superficial epidermal layer Betadine Prep?: Yes Irrigated w/ Saline (ccs): 100 Laceration/Wound Explored: clean, no foreign body removed Closure: Single Layer Suture Type: Prolene - 5-0 Number of Sutures: 2 Sterile Dressing Applied?: Yes - pressure dressing and ice Diagnostics - Vital Signs Vital Signs Temp Pulse Resp BP Pulse Ox 06/08/17 09:59 98.8 F 82 20 141/92 93 - Laboratory Lab Statement: Any lab studies that have been ordered have been reviewed, and results considered in the medical decision making process. - CT brain wo CT Interpretation: No Acute Changes - Atrophy. Chronic ischemic White matter change is noted. No intracranial mass or hemorrhage is noted. CT Interpretation Completed By: Radiologist cervical CT Interpretation: No Acute Changes - moderate compression fracture of T4 vertebral body, old. moderate diffuse cervical spondylosis CT Interpretation Completed By: Radiologist - EKG EKG Cardiac Rate: NL EKG Rhythm: Sinus Rhythm ST Segment: Normal Ectopy: None EKG Interpretation: LVH with IVCD, LAD and secondary repol abnormality, old inferior infarct EKG Comparison: No Significant Change - from 05/04/17 Head Injury Course/Dx Course Of Treatment: no hemorrhage or emergent etiology at this time from patients fall. history and exam very limited due to patient's mental status but everything was examined to the best of my knowledge. CT scans negative. laceration closed without complication, patient tolerated procedure well. no signs fo brain trauma or bleeding at this time. T4 compression fracture appears to be old and without complication. [facility] aware of findings as written in discharge and son was also informed. Given tylenol for pain. Continue at home along with ice and pressure dressing on hematoma. Aware of worsening signs and symptoms. Follow up visit with PCP or [facility] physician to be sure no new symptoms. Concussion likely. Per son asking patient appears she tried to get up to use the bathroom and fell. URinalysis obtained to rule out UTI. Does not appear to be a syncopal episode. EKG also taken and no change from previous. - Diagnoses Differential Diagnosis/HQI/PQRI: Concussion Without LOC, Contusion, Hematoma, Skull Fracture, Other Provider Diagnoses: Traumatic hematoma of forehead, Head injury, Fall at home Discharge - Discharge Plan Condition: Stable Disposition: HOME Patient Education Materials: Care For Your Stitches (ED), Laceration (ED) Referrals: Uriel [Primary Care Provider] - Additional Instructions: Please do not get stitches wet for 48 hours. Keep clean and dry. Keep pressure dressing on. Have 2 stitches removed in 5 days. Patient has an old compression fracture of spine at T4 level, follow up with ortho is recommended. Tylenol for pain and headache. Watch for worsening signs and symptoms to watch out for. Follow up appointment with [facility] physician.
--- NOTE | 2017-06-08 11:30 | RAD ---
Indication: Fall, head injury. CT of the brain was performed without IV contrast. Comparison is made to previous exam dated November 09, 2016. Ventricular structures are midline. No midline shift is noted. Extra-axial spaces are prominent. Periventricular lucency consistent with chronic ischemic matter changes noted. Overall no changes noted since November 09, 2016. IMPRESSION: Atrophy. Chronic ischemic White matter change is noted. No intracranial mass or hemorrhage is noted.
--- NOTE | 2017-06-08 14:22 | RAD ---
INDICATION: Trauma. COMPARISON: Comparison is made with a prior CT of the cervical spine from July 10, 2015. TECHNIQUE: Contiguous axial sections were obtained from the skull base through the T4 vertebra. Images were reconstructed in the sagittal and coronal planes. FINDINGS: The neck is flexed forward and there is mild straightening of the cervical spine. The vertebra are otherwise in normal alignment. There is a moderate compression fracture of the T4 vertebral body age which is likely chronic. No other fractures are seen. Calcification is noted within the supraspinous ligament at the C5-C7 levels. At the C3-C4 level there is mild to moderate posterior uncinate process spurring which causes mild spinal canal narrowing and mild to moderate bilateral neural foraminal narrowing. At C4-C5 level there is posterior uncinate process spurring and facet osteoarthritis. No significant spinal canal narrowing is present. There is moderate to severe neural foraminal narrowing on the right side. At the C5-C6 level there is mild posterior uncinate process spurring. No significant spinal canal narrowing is present. There is moderate bilateral neural foraminal narrowing. At the C6-C7 level there is mild posterior uncinate process spurring which causes mild spinal canal narrowing and moderate bilateral neural foraminal narrowing. Images through the upper chest demonstrate clear lungs. The visualized portion of the thoracic aorta is ectatic. IMPRESSION: 1. MODERATE COMPRESSION FRACTURE OF THE T4 VERTEBRAL BODY LIKELY OLD. 2. MODERATE DIFFUSE CERVICAL SPONDYLOSIS.
[2017-06-08] MEDS ORDERED: Acetaminophen TAB* 325 MG PO ONE (14:58)
[2017-06-08] MEDS ORDERED: Tetan/Diph/Pertus SYR(Tdap)* 0.5 ML SYR(BOOSTRIX) use SYR IM ONE (15:47)
[2017-06-08 19:24] VITALS: BP 149/56
== END 2017-06-08 19:23 | disposition home or self-care (01) ==
LOC: ED 09:58
DX: S00.83XA Contusion of other part of head, initial encounter (principal); S09.90XA Unspecified injury of head, initial encounter; S51.811A Laceration without foreign body of right forearm, initial encounter; W19.XXXA Unspecified fall, initial encounter; Y93.9 Activity, unspecified; Y92.89 Other specified places as the place of occurrence of the external cause
CPT/HCPCS: 12011; 70450; 72125; 90471; 90715; 93005; 99282; A9270-GY

== ENCOUNTER 2017-08-06 23:47 | Emergency (ER) | payer MEDICARE, MEDICAID ==
[2017-08-07] MEDS ORDERED: NS 0.9% 1000 ML* 1,000 ML IV ONE (02:49)
[2017-08-07 03:57] LABS: Hematocrit 34 % (35-47); Hemoglobin 10.8 g/dl (12.0-16.0); Mean Corpuscular HGB Conc 32 g/dl (31-36); Mean Corpuscular Hemoglobin 31 pg (27-31); Mean Corpuscular Volume 96 fL (80-97); Mean Platelet Volume 9 um3 (7.4-10.4); Red Blood Count 3.53 10^6/ul (4.0-5.4); Red Cell Distribution Width 14 % (10.5-15); White Blood Count 15.4 10^3/ul (3.5-10.8)
[2017-08-07 04:11] LABS: Albumin 3.5 g/dL (3.2-5.2); BUN/Creatinine Ratio 26.2 (8-20); C Reactive Protein 26.71 mg/L (< 5.00); Calcium 9.5 mg/dL (8.6-10.3); EGFR African American 42.7 (>60); EGFR Non-African American 33.2 (>60); Globulin 3.5 g/dL (2-4); Potassium 3.8 mmol/L (3.5-5.0); Total Bilirubin 0.3 mg/dL (0.2-1.0)
[2017-08-07] MEDS ORDERED: Lidocaine 1%* 5 ML VIAL INJ ONE (04:25)
--- NOTE | 2017-08-07 04:35 | ED ---
Adult Trauma - HPI Summary HPI Summary: Pt sent here from [facility] for fall earlier tonight. Bleeding lac on Rt side of head - black eye. She is on lovenox per her chart. Other med conditions are diabetes, dementia and gout. She does not speak Japanese. Level 5 caveat - pt poor historian and does not speak Japanese - History of Current Complaint Chief Complaint: EDLacSutureRecheck Stated Complaint: RIGHT EYE LAC Time Seen by Provider: 08/07/17 01:14 Pain Intensity: 0 - Additional Pertinent History Primary Care Physician: HANK - Allergy/Home Medications Allergies/Adverse Reactions: Allergies Allergy/AdvReac Type Severity Reaction Status Date / Time Codeine Allergy Nausea Verified 07/10/15 21:40 PMH/Surg Hx/FS Hx/Imm Hx Previously Healthy: Yes Endocrine/Hematology History: Reports: Hx Diabetes - NIDDM, Hx Thyroid Disease Cardiovascular History: Reports: Hx Coronary Artery Disease - declined stents per patient's son, Hx Hypercholesterolemia, Hx Hypertension, Other Cardiovascular Problems/Disorders - afib Respiratory History: Denies: Hx Asthma, Hx Chronic Obstructive Pulmonary Disease (COPD) GI History: Reports: Hx Gall Bladder Disease, Hx Gastroesophageal Reflux Disease , Other GI Disorders - diverticulitis, GERD, C diff Musculoskeletal History: Reports: Hx Gout, Other Musculoskeletal History - pelvic fx sep 2014 Sensory History: Reports: Hx Cataracts, Hx Vision Problem, Hx Hearing Problem Denies: Hx Contacts or Glasses, Hx Hearing Aid Opthamlomology History: Reports: Hx Cataracts, Hx Vision Problem Denies: Hx Contacts or Glasses Neurological History: Reports: Hx Dementia - Surgical History Surgery Procedure, Year, and Place: cholesysectomy - Immunization History Immunizations Up to Date: Unable to Obtain/Confirm Infectious Disease History: No Infectious Disease History: 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 Denies: Traveled Outside the [place] in Last 30 Days - Family History Known Family History: Positive: Hypertension, Diabetes - Social History Occupation: Retired Lives: At [facility] Alcohol Use: None Hx Substance Use: No Substance Use Type: Reports: None Hx Tobacco Use: No Smoking Status (MU): Never Smoked Tobacco Review of Systems - ROS Summary Review of Systems Summary: Level 5 caveat - dementia and unsure if she speaks Japanese Skin: Other - see HPI All Other Systems Reviewed And Are Negative: Yes Physical Exam Triage Information Reviewed: Yes Vital Signs On Initial Exam: Initial Vitals Temp Pulse Resp BP Pulse Ox 97.8 F 74 18 189/93 94 08/07/17 00:02 08/07/17 00:02 08/07/17 00:02 08/07/17 00:02 08/07/17 00:02 Vital Signs Reviewed: Yes Appearance: Positive: No Pain Distress, Well-Nourished Skin: Positive: Warm - ecchymosis over Rt periorbital region - lac over Rt forehead - bleeding Eyes: Positive: Normal, EOMI, COLLEEN - photophobia, Conjunctiva Clear ENT: Positive: Hearing grossly normal, Pharynx normal - no signs of trauma. Negative: Nasal drainage - no signs of epistaxis Dental: Positive: Other - edentulous Neck: Positive: Supple Respiratory/Lung Sounds: Positive: Breath Sounds Present Cardiovascular: Positive: Normal Abdomen Description: Positive: Nontender, Soft Neurological: Positive: CN Intact II-III. Negative: Alert, Oriented to Person Place, Time - alert - looking around, speaking, but language is uncomprehensible Psychiatric: Positive: Other - dementia Procedures - Laceration/Wound Repair 1 Location: face - Rt supraorbital ridge Description: Linear Anesthesia: 1.0%, Lido Length, Depth and Shape: 2cm x 2mm Betadine Prep?: No - hibaclens wash Irrigated w/ Saline (ccs): 250 Laceration/Wound Explored: clean Closure: Single Layer Suture Type: Nylon - 5-0 Number of Sutures: 4 Layer Closure?: No Sterile Dressing Applied?: Yes - triple anbx ointment - hemodynamically stable Diagnostics - Vital Signs Vital Signs Temp Pulse Resp BP Pulse Ox 08/07/17 03:00 79 96 08/07/17 02:30 107/58 08/07/17 02:26 75 93 08/07/17 02:23 96/60 08/07/17 01:01 83 94 08/07/17 01:00 82 95 08/07/17 00:30 72 181/92 94 08/07/17 00:09 72 94 08/07/17 00:06 189/93 08/07/17 00:02 97.8 F 74 18 189/93 94 - Laboratory Lab Results: Lab Results 08/07/17 08/07/17 08/07/17 Range/Units 03:40 03:40 03:40 WBC (3.5-10.8) 10^3/ul RBC (4.0-5.4) 10^6/ul Hgb (12.0-16.0) g/dl Hct (35-47) % MCV (80-97) fL MCH (27-31) pg MCHC (31-36) g/dl RDW (10.5-15) % Plt Count (150-450) 10^3/ul MPV (7.4-10.4) um3 Neut % (Auto) (38-83) % Lymph % (Auto) (25-47) % [place] % (Auto) (1-9) % Eos % (Auto) (0-6) % Baso % (Auto) (0-2) % Absolute Neuts (auto) (1.5-7.7) 10^3/ul Absolute Lymphs (auto) (1.0-4.8) 10^3/ul Absolute Monos (auto) (0-0.8) 10^3/ul Absolute Eos (auto) (0-0.6) 10^3/ul Absolute Basos (auto) (0-0.2) 10^3/ul Absolute Nucleated RBC 10^3/ul Nucleated RBC % INR (Anticoag Therapy) 0.90 (0.89-1.11) APTT 27.1 (26.0-36.3) seconds Sodium 137 (133-145) mmol/L Potassium 3.8 (3.5-5.0) mmol/L Chloride 107 (101-111) mmol/L Carbon Dioxide 21 L (22-32) mmol/L Anion Gap 9 (2-11) mmol/L BUN 39 H (6-24) mg/dL Creatinine 1.49 H (0.51-0.95) mg/dL Est GFR ( Amer) 42.7 (>60) Est GFR (Non-Af Amer) 33.2 (>60) BUN/Creatinine Ratio 26.2 H (8-20) Glucose 215 H (70-100) mg/dL Calcium 9.5 (8.6-10.3) mg/dL Total Bilirubin 0.30 (0.2-1.0) mg/dL AST 10 L (13-39) U/L ALT 5 L (7-52) U/L Alkaline Phosphatase 77 (34-104) U/L C-Reactive Protein 26.71 H (< 5.00) mg/L Total Protein 7.0 (6.4-8.9) g/dL Albumin 3.5 (3.2-5.2) g/dL Globulin 3.5 (2-4) g/dL Albumin/Globulin Ratio 1.0 (1-3) Blood Type B Positive Antibody Screen Pending 08/07/17 Range/Units 03:40 WBC 15.4 H (3.5-10.8) 10^3/ul RBC 3.53 L (4.0-5.4) 10^6/ul Hgb 10.8 L (12.0-16.0) g/dl Hct 34 L (35-47) % MCV 96 (80-97) fL MCH 31 (27-31) pg MCHC 32 (31-36) g/dl RDW 14 (10.5-15) % Plt Count 332 (150-450) 10^3/ul MPV 9 (7.4-10.4) um3 Neut % (Auto) 63.8 (38-83) % Lymph % (Auto) 28.5 (25-47) % [place] % (Auto) 4.7 (1-9) % Eos % (Auto) 2.2 (0-6) % Baso % (Auto) 0.8 (0-2) % Absolute Neuts (auto) 9.8 H (1.5-7.7) 10^3/ul Absolute Lymphs (auto) 4.4 (1.0-4.8) 10^3/ul Absolute Monos (auto) 0.7 (0-0.8) 10^3/ul Absolute Eos (auto) 0.3 (0-0.6) 10^3/ul Absolute Basos (auto) 0.1 (0-0.2) 10^3/ul Absolute Nucleated RBC 0.01 10^3/ul Nucleated RBC % 0.1 INR (Anticoag Therapy) (0.89-1.11) APTT (26.0-36.3) seconds Sodium (133-145) mmol/L Potassium (3.5-5.0) mmol/L Chloride (101-111) mmol/L Carbon Dioxide (22-32) mmol/L Anion Gap (2-11) mmol/L BUN (6-24) mg/dL Creatinine (0.51-0.95) mg/dL Est GFR ( Amer) (>60) Est GFR (Non-Af Amer) (>60) BUN/Creatinine Ratio (8-20) Glucose (70-100) mg/dL Calcium (8.6-10.3) mg/dL Total Bilirubin (0.2-1.0) mg/dL AST (13-39) U/L ALT (7-52) U/L Alkaline Phosphatase (34-104) U/L C-Reactive Protein (< 5.00) mg/L Total Protein (6.4-8.9) g/dL Albumin (3.2-5.2) g/dL Globulin (2-4) g/dL Albumin/Globulin Ratio (1-3) Blood Type Antibody Screen Result Diagrams: 08/07/17 03:40 08/07/17 03:40 Lab Statement: Any lab studies that have been ordered have been reviewed, and results considered in the medical decision making process. Re-Evaluation - Re-Evaluation First Eval Change: Improved - bleeding controlled w/ lengthy pressure dressing Adult Trauma Course/Dx - Course Course Of Treatment: Pt presents for fall at [facility] w/ continuous bleeding from forehead - she is lovenox per chart. Head CT w/o acute findings. Pt had an episode of vasovagaling which triggered bradycardia - she then vomited. Suspect concussion but cannot r/o infection with elevated WBC's. Glucose is also elevated at 215 (high for her) - IV fluids provided. All other labs are unremarkable for acute pathology - most appears to be normal for her. CXR (wet read)if w/o pneumothorax. Vitals corrected after vomiting and have been WNL. Lac repaired w/o difficulty -pt tolerated well. Will order facial CT to asses for fracture, etc. Anbx will be provided if necessary. Pt appears more alert and responsive during suturing. Signed out to Dr. Ho at 5:11am. - Diagnoses Provider Diagnoses: laceration repair Discharge - Discharge Plan Condition: Stable Disposition: HOME Patient Education Materials: Fall Prevention for Older Adults (ED), Black Eye ( ED), Facial Laceration (ED), Care For Your Stitches (ED), Concussion (ED) Referrals: Uriel, [Primary Care Provider] - Additional Instructions: Gently wash wound daily with soap and water - rinse well and pat dry with clean cloth then reapply triple antibiotic ointment. Follow-up with PCP in 2 days for wound recheck and to re-evaluate neurological status. Sutures need to be removed in 5-7 days. If the wound develops redness, swelling, purulent drainage or pt develops fever, chills, vomiting, return to ED. For her concussion, she may rest from cognitive and physical activity to allow for healing. *If she develops change in personality, lethargy, abnormal pupil size, weakness , vomiting return to ED
[2017-08-07 05:03] LABS: Troponin I 0.01 ng/mL (<0.04)
--- NOTE | 2017-08-07 08:19 | RAD ---
Indication: Head injury. CT of the brain was performed without IV contrast. Comparison is made with previous exam dated June 08, 2017. Ventricular structures are midline. No midline shift is noted. Central and cortical atrophy is noted. Periventricular lucency consistent with chronic ischemic White matter change is noted. There is no evidence of intracranial mass or hemorrhage. Overall parenchymal pattern is unchanged since June 08, 2017. IMPRESSION: Periventricular lucency consistent with chronic ischemic White matter change. No intracranial mass or hemorrhage is noted.
--- NOTE | 2017-08-07 08:29 | RAD ---
INDICATION: Laceration to right forehead after a fall in a patient with altered mental status COMPARISON: Chest x-ray April 18, 2017 TECHNIQUE: Single AP portable view of the chest was obtained. FINDINGS: Image quality is compromised due to the relative inferiority of a portable chest x-ray. The heart and mediastinum exhibit normal size and contour. There is coarse calcification overlying the arch of the aorta. The lungs are grossly clear. There is no evidence of a large pleural effusion. Visualized bones are normal for the patient's age. IMPRESSION: No radiographic evidence for acute cardiopulmonary abnormality on this portable chest x-ray.
--- NOTE | 2017-08-07 08:50 | RAD ---
Indication: Facial injury. CT of the facial bones was obtained in the axial plane. Sagittal and coronal reconstructed images were obtained. The mandible demonstrates no evidence of fracture. The maxilla demonstrates no evidence of fracture. Pterygoid plates are intact. The skull base demonstrates no fracture. The orbits and zygomatic arch demonstrates no fracture. There is right periorbital swelling noted. No evidence of fluid collections are noted. No intraconal or extraconal masses are noted. The paranasal sinuses and nasal arch are unremarkable. IMPRESSION: No fracture is noted. Periorbital swelling in the right. No intraconal or extraconal masses are noted.
[2017-08-07 09:37] VITALS: BP 152/85
--- NOTE | 2017-08-07 09:45 | ED ---
Emily Vela Thomas, scribed for Dayton Rowe MD on 08/07/17 at 0905 . Progress - Progress Note Progress Note: The patient is a sign out from Dr. Ho to Dr. Rowe at shift change pending CT Maxillofacial. CT Maxillofacial reveals no acute fracture. The patient is diagnosed with laceration repair. She will be discharged home. She is stable. She is agreeable to this plan. Re-Evaluation - Re-Evaluation First Eval Change: Improved - bleeding controlled w/ lengthy pressure dressing Course/Dx - Diagnoses Provider Diagnoses: laceration repair The documentation as recorded by the Emily santos Thomas accurately reflects the service I personally performed and the decisions made by Jae nava Drew, MD.
== END 2017-08-07 11:45 | disposition home or self-care (01) ==
LOC: ED 23:47
DX: S01.81XA Laceration without foreign body of other part of head, initial encounter (principal); S05.11XA Contusion of eyeball and orbital tissues, right eye, initial encounter; S06.0X9A Concussion with loss of consciousness of unspecified duration, initial encounter; W19.XXXA Unspecified fall, initial encounter; Y93.9 Activity, unspecified; Y92.9 Unspecified place or not applicable
CPT/HCPCS: 36415; 70450; 70486; 71010; 80053; 84484; 85025; 85610; 85730; 86140; 86850; 86870; 86880; 86900; 86901; 93005; 96374; 99284

== ENCOUNTER 2017-11-19 20:19 | Emergency (ER) | payer MEDICARE ==
--- NOTE | 2017-11-19 21:12 | RAD ---
INDICATION: LEFT wrist pain post fall. COMPARISON: No relevant prior exams available on the [facility] [place] PACS for comparison. TECHNIQUE: AP, lateral, and oblique views LEFT wrist. REPORT: Bone density is decreased throughout. Impacted fracture at the distal metaphysis of the radius with approximate 45 degrees apex volar angulation due to disproportionate dorsal impaction. No definitive extension of the fracture to the distal radioarticular surface evident. Associated resulting ulnar plus variance. No associated fracture of the ulna evident. Soft tissue swelling about the distal forearm, wrist, and hand. 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 IMPRESSION: Dorsally impacted fracture distal metaphysis of the radius.
[2017-11-19] MEDS ORDERED: Lidocaine 2% PF * 5 ML VIAL ONE (22:16)
--- NOTE | 2017-11-19 23:24 | ED ---
Zaki Vela Gabriel, scribed for Deandre Talley MD on 11/19/17 at 2045 . Adult Trauma - HPI Summary HPI Summary: This patient is a 87 year old F BIBA to [facility] s/p fall that occurred yesterday. Per EMS report, pt had a fall yesterday in which the lac to right eye was steri- stripped. Pt was sent here today after x-ray revealed a broken left wrist. Pt speaks Armenian when she talks, normal is non verbal LEVEL 5 CAVEATL: Exam limited to the patient being nonverbal. - History of Current Complaint Chief Complaint: EDExtremityUpper Stated Complaint: FALL YESTERDAY L WRIST INJURY Time Seen by Provider: 11/19/17 20:31 Hx Obtained From: EMS Hx From Patient Unobtainable Due To: Other - non verbal Mechanism of Injury: Fall Onset/Duration: Started Days Ago - 1, Still Present Pain Intensity: 0 Location: Head, Other - right wirst Associated Signs & Symptoms: Positive: Ecchymosis - over right eye - Additional Pertinent History Primary Care Physician: HANK - Allergy/Home Medications Allergies/Adverse Reactions: Allergies Allergy/AdvReac Type Severity Reaction Status Date / Time Codeine Allergy Nausea Verified 07/10/15 21:40 PMH/Surg Hx/FS Hx/Imm Hx Endocrine/Hematology History: Reports: Hx Anticoagulant Therapy - lovenox, Hx Diabetes - NIDDM, Hx Thyroid Disease Cardiovascular History: Reports: Hx Coronary Artery Disease - declined stents per patient's son, Hx Hypercholesterolemia, Hx Hypertension, Other Cardiovascular Problems/Disorders - afib Respiratory History: Denies: Hx Asthma, Hx Chronic Obstructive Pulmonary Disease (COPD) GI History: Reports: Hx Gall Bladder Disease, Hx Gastroesophageal Reflux Disease , Other GI Disorders - diverticulitis, GERD, C diff Musculoskeletal History: Reports: Hx Gout, Other Musculoskeletal History - pelvic fx sep 2014 Sensory History: Reports: Hx Cataracts, Hx Vision Problem, Hx Hearing Problem Denies: Hx Contacts or Glasses, Hx Hearing Aid Opthamlomology History: Reports: Hx Cataracts, Hx Vision Problem Denies: Hx Contacts or Glasses Neurological History: Reports: Hx Dementia - Surgical History Surgery Procedure, Year, and Place: cholesysectomy Infectious Disease History: Unable to Obtain/Confirm Infectious Disease History: 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 GENERAL: Patient is a well-developed and nourished female who is lying comfortable in the stretcher. Patient is not in any acute respiratory distress. HEAD AND FACE: No signs of trauma. No hematomas or skull depressions. No sinus tenderness. Ecchymosis over right orbital with steri strips in place EYES: PERRLA, EOMI x 2, No injected conjunctiva, no nystagmus. EARS: Hearing grossly intact. Ear canals and tympanic membranes are within normal limits. MOUTH: Oropharynx within normal limits. NECK: Supple, trachea is midline, no adenopathy, no JVD, no carotid bruit, no c- spine tenderness, neck with full ROM. CHEST: Symmetric, no tenderness at palpation LUNGS: Clear to auscultation bilaterally. No wheezing or crackles. CVS: Regular rate and rhythm, S1 and S2 present, no murmurs or gallops appreciated. ABDOMEN: Soft, non-tender. No signs of distention. No rebound no guarding, and no masses palpated. Bowel sounds are normal. EXTREMITIES: FROM in all major joints, no edema, no cyanosis or clubbing. There is tenderness over the left wirst NEURO: exam limited due to the patient being non verbal SKIN: Dry and warm Triage Information Reviewed: Yes Vital Signs On Initial Exam: Initial Vitals Temp Pulse Resp BP Pulse Ox 99.2 F 63 20 170/82 92 11/19/17 20:28 11/19/17 20:28 11/19/17 20:28 11/19/17 20:28 11/19/17 20:28 Vital Signs Reviewed: Yes Completion Of Physical Exam Limited Due To: Level 5 Procedures - Procedure Summary Procedure Summary: Left distal radial fracture/colles fracture using hematoma block of 2% lido (no epi) 5ccs. Using finger traps and weights fracture site was manipulated and then sugar tongue splint was applied from the elbow to the mid hand. Kept in place using an mahnaz bandage. NV exam intact per and post reduction. Post reduction xray showed the fracture alignment. Patient will be discharge home to follow up with orhto. Diagnostics - Vital Signs Vital Signs Temp Pulse Resp BP Pulse Ox 11/19/17 20:28 99.2 F 63 20 170/82 92 - Laboratory Lab Statement: Any lab studies that have been ordered have been reviewed, and results considered in the medical decision making process. - Radiology wrist Xray Radiology Interpretation Completed By: Radiologist - Dorsally impacted fracture distal metaphysis of the radius. ED physician has reviewed this radiology report. Adult Trauma Course/Dx - Course Assessment/Plan: This patient is a 87 year old F BIBA to [facility] s/p fall that occurred yesterday. Per EMS report, pt had a fall yesterday in which the lac to right eye was steri-stripped. Pt was sent here today after x-ray revealed a broken left wrist. . Wrist Xray reveals, per radiologist, Dorsally impacted fracture distal metaphysis of the radius. Xray confirms the wrist fracture, a joint reduction was performed in the ED and a post reduction Xray shows joint alignment. Patient will be discharge back to her group home with follow up from ortho in 2 days. - Diagnoses Provider Diagnoses: Distal radial fracture Discharge - Discharge Plan Condition: Stable Disposition: HOME Patient Education Materials: Wrist Fracture in Adults (ED) Referrals: [facility] [Z.BUSINESS, APPLICATION, OTHER] - Robson Dunham MD [Medical Doctor] - 2 Days Additional Instructions: Follow up with Dr. Dunham in 2 days and take Ultram as needed for pain. RETURN TO EMERGENCY DEPARTMENT FOR ANY NEW OR WORSENING SYMPTOMS The documentation as recorded by the Zaki santos Gabriel accurately reflects the service I personally performed and the decisions made by me, Deandre Talley MD.
[2017-11-19 23:37] VITALS: BP 160/101
--- NOTE | 2017-11-20 07:41 | RAD ---
HISTORY: Fall, wrist fracture, postreduction COMPARISONS: November 19, 2012 at 8:52 PM VIEWS: 3, Frontal, lateral, and oblique views of the left wrist performed in a cast which obscures fine bone detail. Evaluation is limited by the lack of true lateral projection. FINDINGS: BONE DENSITY: There is diffuse osteopenia. BONES: Again noted is a comminuted angulated fracture of the distal radial metaphysis. Accounting for differences in technique, the alignment is similar to the previous examination. 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 ALIGNMENT: There is no dislocation. SOFT TISSUES: Unremarkable. OTHER FINDINGS: None. IMPRESSION: 1. OSTEOPENIA. 2. AGAIN NOTED IS A COMMINUTED FRACTURE OF THE DISTAL RADIAL METAPHYSIS
== END 2017-11-19 23:36 | disposition home or self-care (01) ==
LOC: ED 20:19
DX: S52.502A Unspecified fracture of the lower end of left radius, initial encounter for closed fracture (principal); W19.XXXA Unspecified fall, initial encounter; Y92.9 Unspecified place or not applicable
CPT/HCPCS: 99282

== ENCOUNTER 2017-12-18 03:20 | Emergency (ER) | payer MEDICARE, MEDICAID ==
[2017-12-18] MEDS ORDERED: NS 0.9% 1000 ML* 1,000 ML IV ONE (03:33)
--- OUTSIDE RECORDS SUMMARY | 2017-12-18 04:40 | XMS REPORT ---
:1930 External Reference #:[id number] [facility] Address [address] [address] Phone [phone] Care Team Providers Name Role Phone Patient's Choice Primary Care Physician Unavailable Payers Type Date Identification Numbers Payment Provider Subscriber Medicare Primary Policy Number: [id number] Medicare Yordy Liriano PayID: [id number] [address] [place] [address] [facility] Policy Number: [id number] Medicaid Yordy Liriano Group Name: 1 1 [address] PayID: [id number] [place] [address] Problems Description No Information Social History Type Date Description Comments Smoking Patient smoking status is unknown Allergies, Adverse Reactions, Alerts Date Description Reaction Status Severity Comments 11/16/2016 Codeine active Medications Medication Date Status Form Strength Qnty SIG Indications Ordering Provider Isosorbide 00/00/ Active Tablets ER 60mg 1 by mouth Unknown Mononitrate ER 0000 24HR every day Lactaid 00/ Active Chewtabs 4500Unit 5x/day as Unknown 0000 needed with dairy products Levothyroxine 00/ Active Tablets 50mcg 1 by mouth Unknown Sodium 0000 every day Lovastatin 00/00/ Active Tablets 20mg take 1 Unknown 0000 tablet at bedtime Metformin HCL 00/00/ Active Tablets 500mg 1 by mouth Unknown 0000 twice a day Vitamin D3 00/00/ Active Tablets once daily Unknown Complete 0000 Metoprolol / Active Tablets ER 25mg 1 by mouth Unknown Succinate ER 0000 24HR every day Allopurinol 00/ Active Tablets 100mg 1 by mouth Unknown 0000 every day Aspirin Low 00/ Active Chewtabs 81mg 1 by mouth Unknown Strength 0000 every day Diltiazem CD 00/ Active Caps ER 120mg 1 by mouth Unknown 0000 24HR every day Iron 00/ Active Tablets 325(65Fe) 1 by mouth Unknown 0000 mg every day Acetaminophen 00/ Active Tablets 500mg 2 tabs 3x Unknown 0000 a day as needed Flagyl 00/ Active Tablets 500mg 1 tab by Unknown 0000 mouth Q8 hours x14 days Vitamin B12 / Active Tablets ER 1000mcg 1 by mouth Unknown 0000 every day Tramadol HCL / Hx Tablets 50mg 1-2 Unknown 0000 - tablets 05/16/ every 6 2017 hours as needed Nitrofurantoin / Hx Capsules 100mg 1 tab by Unknown Monohyd Macro 0000 - mouth 05/16/ twice a 2017 day x 7 days Vital Signs Date Vital Result Comment 11/21/2017 Weight 148.00 lb Body Temperature 98.6 F 10/04/2017 Heart Rate 80 /min Respiratory Rate 15 /min Body Temperature 98.5 F 06/14/2017 Weight 148.00 lb Heart Rate 99 /min Respiratory Rate 17 /min 05/16/2017 Weight 148.00 lb Heart Rate 90 /min BP Systolic 125 mmHg BP Diastolic 76 mmHg Body Temperature 99.0 F 01/18/2017 Heart Rate 68 /min Respiratory Rate 16 /min Pain Level 0 12/14/2016 Pain Level 5 11/30/2016 Pain Level 3 11/16/2016 BP Systolic 124 mmHg BP Diastolic 86 mmHg Respiratory Rate 17 /min Results Description No Information Procedures Date CPT Code Description Status 05/04/2017 43563 ECHO Transthorasic Realtime 2D W Doppler & Color Completed [facility] 05/04/2017 06253 EKG, Interpretation Only Completed 05/04/2017 03337 FX TX Inter/Monse Or Sub Chanteric Femoral FX W/Implant Completed 05/04/2017 08820 FX TX Inter/Monse Or Sub Chanteric Femoral FX W/Implant Completed 05/03/2017 03896 EKG, Interpretation Only Completed 11/16/2016 58307 Closed trtmt prox humeral fx Completed 07/11/2015 45606 ECHO Transthorasic Realtime 2D W Doppler & Color Completed [facility] 06/13/2014 34469 EKG, Interpretation Only Completed 06/08/2014 00504 EKG, Interpretation Only Completed 06/07/2014 58385 EKG, Interpretation Only Completed 06/07/2014 80565 ECHO Transthorasic Realtime 2D W Doppler & Color Completed [facility] 04/14/2014 09306 Treadmill Interp/Report Only Completed 04/14/2014 01461 Stress Test Supervsn W/Out I/R Completed 04/13/2014 43991 ECHO Transthorasic Realtime 2D W Doppler & Color Completed [facility] 04/12/2014 80224 EKG, Interpretation Only Completed 04/11/2014 72801 EKG, Interpretation Only Completed 04/09/2014 53719 ECHO Transthorasic Realtime 2D W Doppler & Color Completed [facility] 06/27/2012 82652 Color Flow Doppler/Interp & Reprt Completed 06/27/2012 92611 Pulse Wave/Continuous-Interp.RPT Completed 06/27/2012 22462 ECHO Transthorasic Realtime 2D W Doppler & Color Completed [facility] Encounters Type Date Location Provider CPT E/M Dx Office Visit 10/04/2017 [facility] 89232 S72.141D 11:15a Pablo Ivan MD Office Visit 05/07/2017 [facility] [place] [address] S72.001A 11:11a Assoc,pc Hospitalists CESIA Borrero E03.9 I10 E78.5 Office Visit 05/06/2017 11:10a [facility] Akanksha Carlson, N.P. 11821 S72.001A Hospitalists E03.9 I10 E78.5 Office Visit 05/05/2017 11:09a [facility] Akanksha Carlson N.P. 49003 E03.9 Hospitalists S72.001A I10 E78.5 Office Visit 05/04/2017 9:09a [facility] Darrius Cardoso 80646 S72.001D Sergio Z01.810 I21.4 Office Visit 05/04/2017 11:08a [facility] Akanksha Carlson, N.P. 87814 S72.001A Hospitalists E03.9 I10 E78.5 Office Visit 05/03/2017 11:05a [facility], Akanksha Carlson N.P. 90427 E03.9 Hospitalists S72.001A I10 E78.5 Office Visit 05/03/2017 9:03a [facility], 01196 S72.141A Pablo Hill Office Visit 05/02/2017 11:00a [facility], Hasmukh Oliveira, 37871 S72.001A Hospitalalejandra Hill E03.9 I10 E78.5 Office Visit 07/13/2015 11:03a [facility], Thao Harley, N.P. 08965 780.2 Hospitalists 288.8 790.6 250.00 Office Visit 07/12/2015 11:02a [facility], Thao Harley N.P. 73933 780.2 Hospitalists 288.8 790.6 250.00 Office Visit 07/11/2015 11:02a [facility], Thao Harley, N.P. 80319 780.2 Hospitalists 790.6 288.8 250.00 Office Visit 07/10/2015 11:01a [facility] [place], [address] 780.2 Assoc, Antonio Hill 790.6 250.00 288.8 Office Visit 10/08/2014 2:23p [facility], Augustina Guerra, 82252 250.00 Hospitalists Sergio 414.9 401.9 808.8 Office Visit 10/07/2014 7:00a [facility], [address]70 719.45 CAmelie Hill 808.8 Office Visit 10/06/2014 2:22p [facility], Mike Wall, 31637 414.9 Hospitalists N.P. 401.9 250.00 808.8 Office Visit 06/17/2014 3:26p [facility] Jayla Topete, 17456 008.45 Assoc, Hospitalalejandra Hill 599.0 584.5 790.6 Office Visit 06/16/2014 3:26p [facility], 49724 008.45 Assoc, Hospitalists Sergio 599.0 584.5 Office Visit 06/15/2014 3:26p [facility],haroldo Oliveira M.D. 69687 008.45 Hospitalists 599.0 790.6 427.31 Office Visit 06/14/2014 3:25p [facility],haroldo Oliveira M.D. 59710 008.45 Hospitalists 599.0 790.6 427.31 Office Visit 06/13/2014 3:25p [facility] Assoc,haroldo Oliveira M.D. 99127 008.45 Hospitalists 599.0 790.6 427.31 Office Visit 06/12/2014 3:25p [facility],haroldo Oliveira M.D. 56501 008.45 Hospitalists 599.0 790.6 427.31 Office Visit 06/11/2014 3:24p [facility], 79872 008.45 Assoc, Hospitalists Sergio 599.0 790.6 427.31 Office Visit 06/11/2014 2:43p [facility] Magdiel Rowley, 69915 780.60 Infectious Diseases Sergio 008.45 599.0 041.01 401.1 250.00 Office Visit 06/10[facility]2014 [facility] 62090 008.45 Assoc, Hospitalists Sergio 599.0 790.6 427.31 Office Visit 06/09/2014 3[facility]p [facility] 40019 008.45 Assoc, Hospitalists Sergio 427.31 599.0 790.6 Office Visit 06/08/2014 3:23p [facility],[place] [address] 008.45 Hospitalists 427.31 780.79 790.6 Office Visit 06/07/2014 3:22p [facility] Assoc,[place] [address] 008.45 Hospitalists 427.31 790.6 276.2 Office Visit 06/07/2014 10:11a [facility]ov[facility] Robles, 99657 427.31 [place], [facility] Office Visit 06/06/2014 3:22p [facility] [address] 008.45 Hospitalists 276.2 780.79 584.5 Office Visit 06/05/2014 3:21p [facility] [address] 008.45 Hospitalists 276.2 780.79 584.5 Office Visit 06/04/2014 3:21p [facility] [address] 276.2 Hospitalists 008.45 780.79 584.5 Office Visit 06/03/2014 3:20p [facility] [address] 584.5 Hospitalists 780.97 780.79 Office Visit 06/02/2014 3:20p [facility]pc Augustina Gurera, 15219 584.5 Hospitalists MKyler 780.97 276.9 276.2 Office Visit 06/01/2014 3:19p [facility]pc Mert Berman, 57960 584.5 Hospitalists MKyler 780.97 276.9 276.2 Office Visit 04/21/2014 10:55a [facility] Mert Berman, 64451 786.50 Assoc,pc Hospitalists Sergio 414.00 584.9 288.8 Office Visit 04/20/2014 10:55a [facility] Mert Berman, 29523 786.50 Assoc, Hospitalists Sergio 414.00 584.9 288.8 Office Visit 04/17/2014 2:55p [facility],haroldo Oliveira M.D. 70631 562.11 Hospitalists 250.00 584.9 414.01 Office Visit 04/16/2014 2:54p [facility],haroldo Oliveira M.D. 47991 562.11 Hospitalists 250.00 584.9 414.01 Office Visit 04/15/2014 2:54p [facility],haroldo Oliveira M.D. 70593 562.11 Hospitalists 250.00 584.9 414.01 Office Visit 04/14/2014 2:54p [facility] Assoc, Hasmukh Oliveira M.D. 29341 562.11 Hospitalists 250.00 584.9 414.01 Office Visit 04/14/2014 10:31a [facility], 88657 786.50 [place] Office Visit 04/13/2014 2:53p [facility]oc, Hasmukh Oliveira M.D. 12786 562.11 Hospitalists 250.00 584.9 401.9 Office Visit 04/13/2014 3:55p [facility] Volodymyrtaybeva SCorey 51788 786.50 Sergio Louis Office Visit 04/12/2014 2:52p [facility] Vasquez, 91093 562.11 Assoc, Hospitalists M.DCorey 250.00 584.9 401.9 Office Visit 04/12/2014 3:37p [facility] Volodymyrtaybeva SCorey Louis, 43734 794.31 M.[place] 780.4 780.79 Office Visit 04/11/2014 2:52p [facility] Vasquez, 99496 562.11 Assoc, Hospitalists M.DCorey 250.00 584.9 401.9 Office Visit 04/10/2014 2:51p [facility] Vasquez, 61796 562.11 Assoc, Hospitalists M.DCorey 250.00 584.9 401.9 Office Visit 04/09/2014 2:50p [facility], Akanksha Carlson, N.P. 64346 562.11 Hospitalists 250.00 584.9 401.9 Plan of Care Future Appointment(s):12/12/2017 11:15 am - Robson Dunham MD at [facility]
--- OUTSIDE RECORDS SUMMARY | 2017-12-18 04:40 | XMS REPORT ---
:1930 External Reference #:[id number] Author Organization [facility] Address [address] [address] Phone [phone] Care Team Providers Name Role Phone Patient's Choice Primary Care Physician Unavailable Payers Type Date Identification Numbers Payment Provider Subscriber Medicare Primary Policy Number: [id number] Medicare Yordy Liriano PayID: [id number] [address] [place] [address] [facility] Policy Number: [id number] Medicaid Yordy Liriano Group Name: 1 1 [address] PayID: [id number] [place] [address] Problems Date Description Provider Status Onset: 11/21/2017 Closed fracture of distal end of radius Robson Dunham MD Active Social History Type Date Description Comments Smoking Patient smoking status is unknown Allergies, Adverse Reactions, Alerts Date Description Reaction Status Severity Comments 11/16/2016 Codeine active Medications Medication Date Status Form Strength Qnty SIG Indications Ordering Provider Isosorbide / Active Tablets ER 60mg 1 by mouth Unknown Mononitrate ER 0000 24HR every day Lactaid 00/ Active Chewtabs 4500Unit 5x/day as Unknown 0000 needed with dairy products Levothyroxine / Active Tablets 50mcg 1 by mouth Unknown Sodium 0000 every day Lovastatin 00/ Active Tablets 20mg take 1 Unknown 0000 tablet at bedtime Metformin HCL / Active Tablets 500mg 1 by mouth Unknown 0000 twice a day Vitamin D3 00/00/ Active Tablets once daily Unknown Complete 0000 Metoprolol 0000/ Active Tablets ER 25mg 1 by mouth Unknown Succinate ER 0000 24HR every day Allopurinol 0000/ Active Tablets 100mg 1 by mouth Unknown 0000 every day Aspirin Low 00/ Active Chewtabs 81mg 1 by mouth Unknown Strength 0000 every day Diltiazem CD 00/ Active Caps ER 120mg 1 by mouth Unknown 0000 24HR every day Iron / Active Tablets 325(65Fe) 1 by mouth Unknown 0000 mg every day Acetaminophen 0000/ Active Tablets 500mg 2 tabs 3x Unknown [...] days Vital Signs Date Vital Result Comment 12/12/2017 Weight 148.00 lb Heart Rate 68 /min Respiratory Rate 16 /min Body Temperature 97.1 F Pain Level 0 11/21/2017 Weight 148.00 lb Body Temperature 98.6 [...] Information Procedures Date CPT Code Description Status 11/21/2017 45913 CLST TRMT Distal Radial FX Completed 05/04/2017 02273 ECHO Transthorasic Realtime 2D W Doppler & Color Completed [facility] 05/04/2017 67957 EKG, Interpretation Only Completed 05/04/2017 34602 FX TX Inter/Monse Or Sub Chanteric Femoral FX W/Implant Completed 05/04/2017 24871 FX TX Inter/Monse Or Sub Chanteric Femoral FX W/Implant Completed 05/03/2017 02291 EKG, Interpretation Only Completed 11/16/2016 71246 Closed trtmt prox humeral fx Completed 07/11/2015 20523 ECHO Transthorasic Realtime 2D W Doppler & Color Completed [facility] 06/13/2014 26969 EKG, Interpretation Only Completed 06/08/2014 92621 EKG, Interpretation Only Completed 06/07/2014 21282 EKG, Interpretation Only Completed 06/07/2014 52495 ECHO Transthorasic Realtime 2D W Doppler & Color Completed [facility] 04/14/2014 51370 Treadmill Interp/Report Only Completed 04/14/2014 59595 Stress Test Supervsn W/Out I/R Completed 04/13/2014 31484 ECHO Transthorasic Realtime 2D W Doppler & Color Completed [facility] 04/12/2014 29750 EKG, Interpretation Only Completed 04/11/2014 08519 EKG, Interpretation Only Completed 04/09/2014 93003 ECHO Transthorasic Realtime 2D W Doppler & Color Completed [facility] 06/27/2012 62166 Color Flow Doppler/Interp & Reprt Completed 06/27/2012 22154 Pulse Wave/Continuous-Interp.RPT Completed 06/27/2012 62286 ECHO Transthorasic Realtime 2D W Doppler & Color Completed [facility] Encounters Type Date Location Provider CPT E/M Dx Office Visit 10/04/2017 [facility] 18651 S72.141D 11:15a Pablo Ivan MD Office Visit 05/07/2017 [facility] 82146 S72.001A 11:11a Assoc[facility]pc Hospitalists CESIA Borrero E03.9 I10 E78.5 Office Visit 05/06/2017 11:10a [facility],haroldo Carlson, N.P. 15837 S72.001A Hospitalists E03.9 I10 E78.5 Office Visit 05/05/2017 11:09a [facility],haroldo Carlson, N.P. 69995 E03.9 Hospitalists S72.001A I10 E78.5 Office Visit 05/04/2017 9:09a [facility] Darrius SelmaCorey Cardoso, 56480 S72.001D Sergio Z01.810 I21.4 Office Visit 05/04/2017 11:08a [facility], Akanksha Carlson, N.P. 52623 S72.001A Hospitalists E03.9 I10 E78.5 Office Visit 05/03/2017 11:05a [facility], Akanksha Carlson, N.P. 66058 E03.9 Hospitalists S72.001A I10 E78.5 Office Visit 05/03/2017 9:03a [facility], 83614 S72.141A CAmelie Hill Office Visit 05/02/2017 11:00a [facility], Hasmukh Oliveira, 89759 S72.001A Hospitalalejandra Hill E03.9 I10 E78.5 Office Visit 07/13/2015 11:03a [facility], Thao Harley, 78404 780.2 Hospitalists N.P. 288.8 790.6 250.00 Office Visit 07/12/2015 11:02a [facility], Thao Harley, 16539 780.2 Hospitalists N.P. 288.8 790.6 250.00 Office Visit 07/11/2015 11:02a [facility], Thao Harley, 28470 780.2 Hospitalists N.P. 790.6 288.8 250.00 Office Visit 07/10/2015 11:01a [facility] [place], [address] 780.2 Assoc, Hospitalalejandra Hill 790.6 250.00 288.8 Office Visit 10/08/2014 2:23p [facility], Augustina Guerra, 86434 250.00 Hospitalists Sergio 414.9 401.9 808.8 Office Visit 10/07/2014 7:00a [facility], 66233 719.45 C.MGianfranco Hill 808.8 Office Visit 10/06/2014 2:22p [facility], [place], 26198 414.9 Hospitalists N.P. 401.9 250.00 808.8 Office Visit [facility] [address] 008.45 Assoc, Hospitalists Sergio 599.0 584.5 790.6 Office Visit 06/16/2014 [facility] 23625 008.45 Assoc, Hospitalists Sergio 599.0 584.5 Office Visit 06/15/2014 3:26p [facility], Hasmukh Oliveira M.D. 19755 008.45 Hospitalists 599.0 790.6 427.31 Office Visit 06/14/2014 3:25p [facility], Hasmukh Oliveira M.D. 55543 008.45 Hospitalists 599.0 790.6 427.31 Office Visit 06/13/2014 3:25p [facility], Hasmukh Oliveira M.D. 82733 008.45 Hospitalists 599.0 790.6 427.31 Office Visit 06/12/2014 3:25p [facility], Hasmukh Oliveira M.D. 04364 008.45 Hospitalists 599.0 790.6 427.31 Office Visit 06/11/2014 [facility]p [facility] 6[address] 008.45 Assoc, Hospitalists Sergio 599.0 790.6 427.31 Office Visit 06/11/2014 2:43p [facility] Magdiel Rowley, 11674 780.60 Infectious Diseases Sergio 008.45 599.0 041.01 401.1 250.00 Office Visit 06/10/2014 3[facility]p [facility] 72658 008.45 Assoc, Hospitalists Sergio 599.0 790.6 427.31 Office Visit 06/09/2014 3[facility]23p [facility], 51495 008.45 Assoc, Hospitalists Sergio 427.31 599.0 790.6 Office Visit 06/08/2014 3:23p [facility],[place] [address] 008.45 Hospitalists 427.31 780.79 790.6 Office Visit 06/07/2014 3:22p [facility],[place] [address] 008.45 Hospitalists 427.31 790.6 276.2 Office Visit 06/07/2014 10:11a [facility] Geovannyfatoumata Robles, 34753 427.31 [place], [facility] Office Visit 06/06/2014 3:22p [facility],[place] [address] 008.45 Hospitalists 276.2 780.79 584.5 Office Visit 06/05/2014 3:21p [facility] [address] 008.45 Hospitalists 276.2 780.79 584.5 Office Visit 06/04/2014 3:21p [facility] [address] 276.2 Hospitalists 008.45 780.79 584.5 Office Visit 06/03/2014 3:20p [facility] [address] 584.5 Hospitalists 780.97 780.79 Office Visit 06/02/2014 3:20p [facility] Augustina Guerra, 72272 584.5 Hospitalists M.D. 780.97 276.9 276.2 Office Visit 06/01/2014 3:19p [facility] Mert Berman, 71696 584.5 Hospitalists M.DCorey 780.97 276.9 276.2 Office Visit 04/21/2014 10:55a [facility] Mert Berman, 60620 786.50 Assoc,pc Hospitalists M.DCorey 414.00 584.9 288.8 Office Visit 04/20/2014 10:55a [facility] Mert Berman, 75968 786.50 Assoc,pc Hospitalists M.DCorey 414.00 584.9 288.8 Office Visit 04/17/2014 2:55p [facility] Hasmukh Oliveira M.D. 70328 562.11 Hospitalists 250.00 584.9 414.01 Office Visit 04/16/2014 2:54p [facility], Hasmukh Oliveira M.D. 87840 562.11 Hospitalists 250.00 584.9 414.01 Office Visit 04/15/2014 2:54p [facility]oc, Hasmukh Oliveira M.D. 45498 562.11 Hospitalists 250.00 584.9 414.01 Office Visit 04/14/2014 2:54p [facility]oc, Hasmukh Oliveira M.D. 99016 562.11 Hospitalists 250.00 584.9 414.01 Office Visit 04/14/2014 10:31a [facility] Howard Haider, 88519 786.50 Hyun [place] Office Visit 04/13/2014 2:53p [facility], Hasmukh Oliveira M.D. 08517 562.11 Hospitalists 250.00 584.9 401.9 Office Visit 04/13/2014 3:55p [facility] Volodymyrtaybeva SCorey 85752 786.50 Sergio Louis Office Visit 04/12/2014 [facility] 27241 562.11 Assoc, Hospitalists MCoreyDCorey 250.00 584.9 401.9 Office Visit 04/12/2014 3:37p [facility] Volodymyrtaybeh SCorey Louis, 53375 794.31 Sergio 780.4 780.79 Office Visit 04/11/2014 2:52p [facility], 08469 562.11 Assoc, Hospitalists MKyler 250.00 584.9 401.9 Office Visit 04/10/2014 2:51p [facility], 20275 562.11 Assoc, Hospitalists M.DCorey 250.00 584.9 401.9 Office Visit 04/09/2014 [facility] Akanksha Carlson N.PCorey 91073 562.11 Hospitalists 250.00 584.9 401.9 Plan of Care Future Appointment(s):01/02/2018 11:30 am - Robson Dunham MD at [facility]
[2017-12-18 04:49] LABS: ABS Basophils 0.1 10^3/ul (0-0.2); ABS Eosinophils 0.6 10^3/ul (0-0.6); ABS Lymphocytes 2.9 10^3/ul (1.0-4.8); ABS Monocytes 0.7 10^3/ul (0-0.8); ABS Neutrophils 6.5 10^3/ul (1.5-7.7); ABS Nucleated RBC 0 10^3/ul; Eosinophil % 5.7 % (0-6); Hematocrit 39 % (35-47); Hemoglobin 12.7 g/dl (12.0-16.0); Lymphocyte % 26.8 % (25-47); Mean Corpuscular HGB Conc 33 g/dl (31-36); Mean Corpuscular Hemoglobin 31 pg (27-31); Mean Corpuscular Volume 94 fL (80-97); Mean Platelet Volume 9 um3 (7.4-10.4); Nucleated Red Blood Cells % 0; Platelet Count 307 10^3/ul (150-450); Red Blood Count 4.11 10^6/ul (4.0-5.4); Red Cell Distribution Width 15 % (10.5-15); White Blood Count 10.8 10^3/ul (3.5-10.8)
[2017-12-18 05:02] LABS: INR 0.86 (0.77-1.02)
[2017-12-18 05:03] LABS: EGFR Non-African American 38.8 (>60)
[2017-12-18 05:38] VITALS: BP 188/80
[2017-12-18 05:38] LABS: Urine Appearance Cloudy; Urine Blood 1+ (Negative); Urine Color Yellow; Urine Ketones Negative (Negative); Urine Protein 1+(30 mg/dL) (Negative); Urine Specific Gravity 1.013 (1.010-1.030); Urine Urobilinogen Negative (Negative)
[2017-12-18] MEDS ORDERED: Levofloxacin TAB* 500 MG PO ONE (05:39)
--- NOTE | 2017-12-18 06:02 | ED ---
Emily Vela Thomas, scribed for Kd Sampson on 12/18/17 at 0339 . Altered Mental Status - HPI Summary HPI Summary: This patient is a 87 year old F BIBA to ED with a chief complaint of altered mental status since 0200 today. EMS states that the pt is verbally response, alert and oriented at baseline. EMS states that she will look in the direction when spoken to but will not verbally respond. Pt is from [facility]. LEVEL 5 CAVEAT: HPI is limited by dementia. - History Of Current Complaint Chief Complaint: EDAltMentalStatus Stated Complaint: AMS Hx Obtained From: EMS Hx From Patient Unobtainable Due To: Dementia Onset/Duration: Still Present Timing: Lasting Hours Character: Confusion - Allergies/Home Medications Allergies/Adverse Reactions: Allergies Allergy/AdvReac Type Severity Reaction Status Date / Time Codeine Allergy Nausea Verified 07/10/15 21:40 PMH/Surg Hx/FS Hx/Imm Hx Endocrine/Hematology History: Reports: Hx Anticoagulant Therapy - lovenox, Hx Diabetes - NIDDM, Hx Thyroid Disease Cardiovascular History: Reports: Hx Coronary Artery Disease - declined stents per patient's son, Hx Hypercholesterolemia, Hx Hypertension, Other Cardiovascular Problems/Disorders - afib Respiratory History: Denies: Hx Asthma, Hx Chronic Obstructive Pulmonary Disease (COPD) GI History: Reports: Hx Gall Bladder Disease, Hx Gastroesophageal Reflux Disease , Other GI Disorders - diverticulitis, GERD, C diff Musculoskeletal History: Reports: Hx Gout, Other Musculoskeletal History - pelvic fx sep 2014 Sensory History: Reports: Hx Cataracts, Hx Vision Problem, Hx Hearing Problem Denies: Hx Contacts or Glasses, Hx Hearing Aid Opthamlomology History: Reports: Hx Cataracts, Hx Vision Problem Denies: Hx Contacts or Glasses Neurological History: Reports: Hx Dementia - Surgical History Surgery Procedure, Year, and Place: cholesysectomy Infectious Disease History: Unable to Obtain/Confirm Infectious Disease History: 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 Negative: Fever Positive: Other - Confusion All Other Systems Reviewed And Are Negative: No Physical Exam - Summary Physical Exam Summary: Appearance: confused Skin: warm, dry, reflects adequate perfusion, cast over left forearm Head/face: normal Eyes: EOMI, COLLEEN ENT: normal Neck: supple, non-tender Respiratory: CTA, breath sounds present Cardiovascular: RRR, pulses symmetrical Abdomen: non-tender, soft Bowel: present Musculoskeletal: cast lf forearm Neuro: comfused LEVEL 5 CAVEAT: PHYSICAL EXAM is limited by dementia. Triage Information Reviewed: Yes Vital Signs On Initial Exam: Initial Vitals Temp Pulse Resp BP Pulse Ox 97.4 F 62 16 196/87 96 12/18/17 03:25 12/18/17 03:25 12/18/17 03:25 12/18/17 03:25 12/18/17 03:25 Vital Signs Reviewed: Yes Completion Of Physical Exam Limited Due To: Level 5 Diagnostics - Vital Signs Vital Signs Temp Pulse Resp BP Pulse Ox 12/18/17 03:25 97.4 F 62 16 196/87 96 - Laboratory Lab Results: Lab Results 12/18/17 12/18/17 12/18/17 Range/Units 04:36 04:36 04:36 WBC 10.8 (3.5-10.8) 10^3/ul RBC 4.11 (4.0-5.4) 10^6/ul Hgb 12.7 (12.0-16.0) g/dl Hct 39 (35-47) % MCV 94 (80-97) fL MCH 31 (27-31) pg MCHC 33 (31-36) g/dl RDW 15 (10.5-15) % Plt Count 307 (150-450) 10^3/ul MPV 9 (7.4-10.4) um3 Neut % (Auto) 60.4 (38-83) % Lymph % (Auto) 26.8 (25-47) % Lane % (Auto) 6.6 (1-9) % Eos % (Auto) 5.7 (0-6) % Baso % (Auto) 0.5 (0-2) % Absolute Neuts (auto) 6.5 (1.5-7.7) 10^3/ul Absolute Lymphs (auto) 2.9 (1.0-4.8) 10^3/ul Absolute Monos (auto) 0.7 (0-0.8) 10^3/ul Absolute Eos (auto) 0.6 (0-0.6) 10^3/ul Absolute Basos (auto) 0.1 (0-0.2) 10^3/ul Absolute Nucleated RBC 0 10^3/ul Nucleated RBC % 0 INR (Anticoag Therapy) 0.86 (0.77-1.02) APTT 28.0 (26.0-36.3) seconds Sodium (133-145) mmol/L Potassium (3.5-5.0) mmol/L Chloride (101-111) mmol/L Carbon Dioxide (22-32) mmol/L Anion Gap (2-11) mmol/L BUN (6-24) mg/dL Creatinine (0.51-0.95) mg/dL Est GFR ( Amer) (>60) Est GFR (Non-Af Amer) (>60) BUN/Creatinine Ratio (8-20) Glucose (70-100) mg/dL Lactic Acid (0.5-2.0) mmol/L Calcium (8.6-10.3) mg/dL Total Bilirubin (0.2-1.0) mg/dL AST (13-39) U/L ALT (7-52) U/L Alkaline Phosphatase (34-104) U/L Troponin I (<0.04) ng/mL B-Natriuretic Peptide 181 H ( - 100) pg/mL Total Protein (6.4-8.9) g/dL Albumin (3.2-5.2) g/dL Globulin (2-4) g/dL Albumin/Globulin Ratio (1-3) Urine Color Urine Appearance Urine pH (5-9) Ur Specific [place] (1.010-1.030) Urine Protein (Negative) Urine Ketones (Negative) Urine Blood (Negative) Urine Nitrate (Negative) Urine Bilirubin (Negative) Urine Urobilinogen (Negative) Ur Leukocyte Esterase (Negative) Urine WBC (Auto) (Absent) Urine RBC (Auto) (Absent) Ur Squamous Epith Cells (Absent) Urine Bacteria (Absent) Urine Glucose (Negative) 12/18/17 12/18/17 12/18/17 Range/Units 04:36 04:36 05:12 WBC (3.5-10.8) 10^3/ul RBC (4.0-5.4) 10^6/ul Hgb (12.0-16.0) g/dl Hct (35-47) % MCV (80-97) fL MCH (27-31) pg MCHC (31-36) g/dl RDW (10.5-15) % Plt Count (150-450) 10^3/ul MPV (7.4-10.4) um3 Neut % (Auto) (38-83) % Lymph % (Auto) (25-47) % Lane % (Auto) (1-9) % Eos % (Auto) (0-6) % Baso % (Auto) (0-2) % Absolute Neuts (auto) (1.5-7.7) 10^3/ul Absolute Lymphs (auto) (1.0-4.8) 10^3/ul Absolute Monos (auto) (0-0.8) 10^3/ul Absolute Eos (auto) (0-0.6) 10^3/ul Absolute Basos (auto) (0-0.2) 10^3/ul Absolute Nucleated RBC 10^3/ul Nucleated RBC % INR (Anticoag Therapy) (0.77-1.02) APTT (26.0-36.3) seconds Sodium 137 (133-145) mmol/L Potassium 3.4 L (3.5-5.0) mmol/L Chloride 106 (101-111) mmol/L Carbon Dioxide 22 (22-32) mmol/L Anion Gap 9 (2-11) mmol/L BUN 28 H (6-24) mg/dL Creatinine 1.30 H (0.51-0.95) mg/dL Est GFR ( Amer) 49.9 (>60) Est GFR (Non-Af Amer) 38.8 (>60) BUN/Creatinine Ratio 21.5 H (8-20) Glucose 152 H (70-100) mg/dL Lactic Acid 1.5 (0.5-2.0) mmol/L Calcium 9.6 (8.6-10.3) mg/dL Total Bilirubin 0.30 (0.2-1.0) mg/dL AST 15 (13-39) U/L ALT 8 (7-52) U/L Alkaline Phosphatase 108 H (34-104) U/L Troponin I 0.02 (<0.04) ng/mL B-Natriuretic Peptide ( - 100) pg/mL Total Protein 7.8 (6.4-8.9) g/dL Albumin 3.9 (3.2-5.2) g/dL Globulin 3.9 (2-4) g/dL Albumin/Globulin Ratio 1.0 (1-3) Urine Color Yellow Urine Appearance Cloudy Urine pH 5.0 (5-9) Ur Specific [place] 1.013 (1.010-1.030) Urine Protein 1+(30 mg/dl) H (Negative) Urine Ketones Negative (Negative) Urine Blood 1+ H (Negative) Urine Nitrate Positive H (Negative) Urine Bilirubin Negative (Negative) Urine Urobilinogen Negative (Negative) Ur Leukocyte Esterase 2+ H (Negative) Urine WBC (Auto) 3+(>20/hpf) H (Absent) Urine RBC (Auto) 2+(6-10/hpf) H (Absent) Ur Squamous Epith Cells Present H (Absent) Urine Bacteria 1+ H (Absent) Urine Glucose Negative (Negative) Result Diagrams: 12/18/17 04:36 12/18/17 04:36 Lab Statement: Any lab studies that have been ordered have been reviewed, and results considered in the medical decision making process. - Radiology CXR Radiology Interpretation Completed By: ED Physician - NEGATIVE - CT HEAD CT Interpretation Completed By: Radiologist - Head CT reveals no intracranial mass or bleed. Chronic appearing involutional changes of aging stable relative to the previous study. ED physician has reviewed this radiology report. Altered Mental Statu Course/Dx - Course Assessment/Plan: This patient is a 87 year old F BIBA to ED with a chief complaint of altered mental status since 0200 today. Radiology included CXR and head CT which reveals no intracranial mass or bleed. Chronic appearing involutional changes of aging stable relative to the previous study. In the ED course the patient was given normal saline solution. Bloodwork and urinalysis were obtained. The patient is diagnosed with an UTI. The patient is instructed to follow up with primary care. - Diagnoses Differential Diagnosis/HQI/PQRI: Intracranial Bleed, Metabolic Disorder, Sepsis Discharge Diagnoses: UTI (urinary tract infection), Dementia Discharge - Discharge Plan Condition: Stable Disposition: HOME Prescriptions: Levofloxacin TAB* [Levaquin TAB*] 500 mg PO DAILY #5 tab Patient Education Materials: Urinary Tract Infection in Older Adults (ED) Referrals: Ras Poon MD [Primary Care Provider] - 3 Days (Follow up with your PCP within 3 days. ) Additional Instructions: RETURN TO THE EMERGENCY DEPARTMENT FOR CHANGING OR WORSENING SYMPTOMS. The documentation as recorded by the Emily santos Thomas accurately reflects the service I personally performed and the decisions made by , Kd Sampson.
--- NOTE | 2017-12-18 08:03 | RAD ---
Indication: Confusion, altered mental status. Single frontal view of the chest performed at 0411 hours was reviewed. Comparison is made with previous exam dated August 07, 2017. No mediastinal shift is noted. Cardiomegaly is noted. Tortuous thoracic aorta is noted. Interstitial edema consistent with vascular congestion is noted. IMPRESSION: FINDINGS CONSISTENT WITH VASCULAR CONGESTION.
--- NOTE | 2017-12-18 08:40 | RAD ---
Indication: Confusion, altered mental status. CT of the brain was performed without IV contrast. Comparison is made with previous exam dated August 06, 2017. Ventricular structures are midline. No midline shift is noted. Periventricular lucency consistent with chronic ischemic White matter change is noted. No intracranial mass or hemorrhage is noted. Mastoid air cells and paranasal sinuses are unremarkable. Motion artifact degrades the images. IMPRESSION: Chronic ischemic White matter change with no evidence of intracranial mass or hemorrhage.
== END 2017-12-18 06:02 | disposition home or self-care (01) ==
LOC: ED 03:20
DX: F03.90 Unspecified dementia, unspecified severity, without behavioral disturbance, psychotic disturbance, mood disturbance, and anxiety (principal); N39.0 Urinary tract infection, site not specified; Z88.5 Allergy status to narcotic agent
CPT/HCPCS: 36415; 70450; 71045; 80053; 81003; 81015; 83605; 83880; 84484; 85025; 85610; 85730; 87077; 87086; 87186; 93005; 96360; 99284

== ENCOUNTER 2018-04-15 07:09 | Emergency (ER) | payer MEDICAID, MEDICARE ==
[2018-04-15 08:06] LABS: ABS Basophils 0 10^3/ul (0-0.2); ABS Eosinophils 0.4 10^3/ul (0-0.6); ABS Lymphocytes 1.9 10^3/ul (1.0-4.8); ABS Monocytes 0.7 10^3/ul (0-0.8); ABS Neutrophils 11.3 10^3/ul (1.5-7.7); ABS Nucleated RBC 0 10^3/ul; Hematocrit 39 % (35-47); Hemoglobin 12.6 g/dl (12.0-16.0); Lymphocyte % 13.4 % (25-47); Mean Corpuscular HGB Conc 33 g/dl (31-36); Mean Corpuscular Hemoglobin 31 pg (27-31); Mean Corpuscular Volume 94 fL (80-97); Mean Platelet Volume 8.7 um3 (7.4-10.4); Nucleated Red Blood Cells % 0; Platelet Count 294 10^3/ul (150-450); Red Blood Count 4.11 10^6/ul (4.0-5.4); Red Cell Distribution Width 14 % (10.5-15); White Blood Count 14.4 10^3/ul (3.5-10.8)
[2018-04-15 08:10] LABS: INR 0.87 (0.77-1.02)
[2018-04-15 08:20] LABS: EGFR Non-African American 39.4 (>60)
--- NOTE | 2018-04-15 08:26 | RAD ---
HISTORY: Head injury, fall COMPARISONS: December 18, 2017 TECHNIQUE: Multiple contiguous axial CT scans were obtained of the head without intravenous contrast. FINDINGS: HEMORRHAGE/INFARCT: There is no hemorrhage or acute infarct. MASSES/SHIFT: There is no mass or shift. EXTRA-AXIAL SPACES: There are no extra-axial fluid collections. SULCI AND VENTRICLES: There is diffuse and proportional enlargement of the sulci and ventricles. CEREBRUM: There is hypoattenuation of the periventricular and subcortical white matter. BRAINSTEM: There are no focal parenchymal abnormalities. CEREBELLUM: There are no focal parenchymal abnormalities. VESSELS: Atherosclerosis PARANASAL SINUSES: The paranasal sinuses are clear. ORBITS: The orbits are unremarkable. BONES AND SOFT TISSUE: No bone or soft tissue abnormalities are noted. OTHER: None IMPRESSION: NO ACUTE INTRACRANIAL PATHOLOGY. DIFFUSE INVOLUTIONAL CHANGE WITH CHRONIC SMALL VESSEL ISCHEMIC CHANGES.
--- NOTE | 2018-04-15 08:28 | RAD ---
HISTORY: Fall, head injury COMPARISONS: June 08, 2017 TECHNIQUE: Multiple contiguous axial CT scans were obtained of the cervical spine without intravenous contrast, with coronal and sagittal multiplanar reformations. FINDINGS: BRAIN: The visualized brain is unremarkable CENTRAL CANAL: Evaluation of the central canal is limited on CT technique; however, there is no obvious canalicular mass or epidural hemorrhage. ALIGNMENT: The alignment is normal, without subluxation or dislocation. VERTEBRAL BODIES: There is diffuse osteopenia. There is no displaced fracture. There is multilevel anterolateral marginal osteophyte formation. JOINTS: There is diffuse uncovertebral and facet osteoarthritis. There is osteoarthritis of the atlantoaxial articulation. MUSCULATURE: Unremarkable INTERVERTEBRAL DISCS: There is diffuse loss of intervertebral disc height. AXIAL IMAGES: On axial imaging, there is mild diffuse neural foraminal narrowing, with more moderate neural foraminal narrowing on the right at C5-C6 and C6-C7. There is no osseous central canal stenosis. SOFT TISSUES: The visualized soft tissues of the neck are unremarkable. The prevertebral fat stripe is preserved. There is atherosclerosis of the carotid bifurcations and the aortic arch. OTHER: There is a stable chronic compression deformity of T4. IMPRESSION: 1. OSTEOPENIA. 2. DEGENERATIVE DISC DISEASE AND OSTEOARTHRITIS.. 3. ATHEROSCLEROSIS. 4. NO ACUTE OSSEOUS INJURY TO THE CERVICAL SPINE
--- NOTE | 2018-04-15 09:09 | RAD ---
HISTORY: Fall COMPARISONS: December 18, 2017 VIEWS: 1: frontal portable view of the chest at 8:28 AM FINDINGS: LINES AND TUBES: None. CARDIOMEDIASTINAL SILHOUETTE: The cardiomediastinal silhouette is normal for portable technique. PLEURA: The costophrenic angles are sharp. No pleural abnormalities are noted. LUNG PARENCHYMA: The lungs are clear. ABDOMEN: The upper abdomen is clear. There is no subphrenic gas. BONES AND SOFT TISSUES: Degenerative changes are noted. There is diffuse osteopenia. There is a chronic appearing fracture of the left proximal humerus. There is a Hill-Sachs deformity of the right proximal humerus. End of the previous chest x-ray. IMPRESSION: NO ACTIVE CARDIOPULMONARY DISEASE. CHRONIC POSTTRAUMATIC CHANGES.
--- NOTE | 2018-04-15 09:09 | RAD ---
HISTORY: Unwitnessed fall COMPARISONS: October 04, 2017 VIEWS: 1, Single frontal view of the pelvis FINDINGS: BONE DENSITY: There is diffuse osteopenia. BONES: The patient is status post internal fixation of the right femur. There is no appreciable hardware failure or osteolysis. JOINTS: There is mild osteoarthritis of the hips and SI joints. ALIGNMENT: There is no dislocation. SOFT TISSUES: Unremarkable. OTHER FINDINGS: Degenerative changes noted of the spine. IMPRESSION: 1. OSTEOPENIA. 2. POST SURGICAL CHANGE. 3. DEGENERATIVE CHANGES. 4. NO ACUTE OSSEOUS INJURY. THE DEGREE OF OSTEOPENIA MAY MAKE A NONDISPLACED FRACTURE RADIOGRAPHICALLY OCCULT. IF SYMPTOMS PERSIST, RECOMMEND REPEAT IMAGING.
[2018-04-15 09:36] VITALS: BP 203/101
--- NOTE | 2018-04-15 09:41 | ED ---
Shea Vela Rebecca, scribed for Kd Sampson on 04/15/18 at 0737 . Complex/Multi-Sys Presentation - HPI Summary HPI Summary: Pt is an 88 y/o F BIBA from residential who presents to ED due to a fall. Per nurse's report, the pt had an unwitnessed fall this morning during which she hit the back of her head. Negative LOC. No history is obtainable from the patient. Level 5 caveat due to dementia. - History Of Current Complaint Chief Complaint: EDGeneral Time Seen by Provider: 04/15/18 07:12 Hx Obtained From: Medical Records Severity Currently: None Location: Negative Associated Signs And Symptoms: Positive: Other - s/p fall - Allergies/Home Medications Allergies/Adverse Reactions: Allergies Allergy/AdvReac Type Severity Reaction Status Date / Time MS Codeine [Codeine] Allergy Nausea Verified 07/10/15 21:40 PMH/Surg Hx/FS Hx/Imm Hx Endocrine/Hematology History: Reports: Hx Anticoagulant Therapy - lovenox, Hx Diabetes - NIDDM, Hx Thyroid Disease Cardiovascular History: Reports: Hx Coronary Artery Disease - declined stents per patient's son, Hx Hypercholesterolemia, Hx Hypertension, Other Cardiovascular Problems/Disorders - afib Respiratory History: Denies: Hx Asthma, Hx Chronic Obstructive Pulmonary Disease (COPD) GI History: Reports: Hx Gall Bladder Disease, Hx Gastroesophageal Reflux Disease , Other GI Disorders - diverticulitis, GERD, C diff Musculoskeletal History: Reports: Hx Gout, Other Musculoskeletal History - pelvic fx sep 2014 Sensory History: Reports: Hx Cataracts, Hx Vision Problem, Hx Hearing Problem Denies: Hx Contacts or Glasses, Hx Hearing Aid Opthamlomology History: Reports: Hx Cataracts, Hx Vision Problem Denies: Hx Contacts or Glasses Neurological History: Reports: Hx Dementia - Surgical History Surgery Procedure, Year, and Place: cholesysectomy Infectious Disease History: No Infectious Disease History: 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 Denies: Traveled Outside the [place] in Last 30 Days - Family History Known Family History: Positive: Hypertension, Diabetes - Social History Alcohol Use: None Hx Substance Use: No Substance Use Type: Reports: None Hx Tobacco Use: No Smoking Status (MU): Never Smoked Tobacco Review of Systems Positive: Other - s/p fall Neurological: Other - NEGATIVE: LOC All Other Systems Reviewed And Are Negative: No - Comments Additional Review of Systems Comments: Level 5 caveat due to dementia Physical Exam - Summary Physical Exam Summary: Appearance: Well appearing, no pain distress Skin: warm, dry, reflects adequate perfusion Head/face: normal Eyes: EOMI, COLLEEN ENT: normal Neck: supple, non-tender Respiratory: CTA, breath sounds present Cardiovascular: RRR, pulses symmetrical ~ Abdomen: non-tender, soft Bowel: present Musculoskeletal: normal, strength/ROM intact Neuro: alert and confused GCS: 13 Triage Information Reviewed: Yes Vital Signs On Initial Exam: Initial Vitals Pulse Pulse Ox 70 95 04/15/18 07:13 04/15/18 07:13 Vital Signs Reviewed: Yes Completion Of Physical Exam Limited Due To: Dementia Diagnostics - Vital Signs Vital Signs Temp Pulse Resp BP Pulse Ox 04/15/18 07:20 71 214/109 95 04/15/18 07:18 98.1 F 66 16 214/109 98 04/15/18 07:14 71 219/96 95 04/15/18 07:13 70 95 - Laboratory Lab Results: Lab Results 04/15/18 04/15/18 04/15/18 Range/Units 07:48 07:48 07:48 WBC 14.4 H (3.5-10.8) 10^3/ul RBC 4.11 (4.0-5.4) 10^6/ul Hgb 12.6 (12.0-16.0) g/dl Hct 39 (35-47) % MCV 94 (80-97) fL MCH 31 (27-31) pg MCHC 33 (31-36) g/dl RDW 14 (10.5-15) % Plt Count 294 (150-450) 10^3/ul MPV 8.7 (7.4-10.4) um3 Neut % (Auto) 78.5 (38-83) % Lymph % (Auto) 13.4 L (25-47) % [place] % (Auto) 4.9 (0-7) % Eos % (Auto) 3.0 (0-6) % Baso % (Auto) 0.2 (0-2) % Absolute Neuts (auto) 11.3 H (1.5-7.7) 10^3/ul Absolute Lymphs (auto) 1.9 (1.0-4.8) 10^3/ul Absolute Monos (auto) 0.7 (0-0.8) 10^3/ul Absolute Eos (auto) 0.4 (0-0.6) 10^3/ul Absolute Basos (auto) 0 (0-0.2) 10^3/ul Absolute Nucleated RBC 0 10^3/ul Nucleated RBC % 0 INR (Anticoag Therapy) 0.87 (0.77-1.02) APTT 26.8 (26.0-36.3) seconds Sodium 140 (139-145) mmol/L Potassium 3.8 (3.5-5.0) mmol/L Chloride 105 (101-111) mmol/L Carbon Dioxide 28 (22-32) mmol/L Anion Gap 7 (2-11) mmol/L BUN 26 H (6-24) mg/dL Creatinine 1.28 H (0.51-0.95) mg/dL Est GFR ( Amer) 50.7 (>60) Est GFR (Non-Af Amer) 39.4 (>60) BUN/Creatinine Ratio 20.3 H (8-20) Glucose 173 H (70-100) mg/dL Calcium 9.8 (8.6-10.3) mg/dL Total Bilirubin 0.40 (0.2-1.0) mg/dL AST 15 (13-39) U/L ALT 9 (7-52) U/L Alkaline Phosphatase 115 H (34-104) U/L Troponin I 0.02 (<0.04) ng/mL Total Protein 7.7 (6.4-8.9) g/dL Albumin 3.8 (3.2-5.2) g/dL Globulin 3.9 (2-4) g/dL Albumin/Globulin Ratio 1.0 (1-3) Result Diagrams: 04/15/18 07:48 04/15/18 07:48 Lab Statement: Any lab studies that have been ordered have been reviewed, and results considered in the medical decision making process. - Radiology CXR Xray Interpretation: No Acute Changes - NO ACTIVE CARDIOPULMONARY DISEASE. CHRONIC POSTTRAUMATIC CHANGES. ED physician reviewed this radiology report. Radiology Interpretation Completed By: Radiologist Pelvis XR Xray Interpretation: No Acute Changes - 1. OSTEOPENIA. 2. POST SURGICAL CHANGE. 3. DEGENERATIVE CHANGES. 4. NO ACUTE OSSEOUS INJURY. THE DEGREE OF OSTEOPENIA MAY MAKE A NONDISPLACED FRACTURE RADIOGRAPHICALLY OCCULT. IF SYMPTOMS PERSIST, RECOMMEND REPEAT IMAGING. ED physician reviewed this radiology report. Radiology Interpretation Completed By: Radiologist - CT Brain CT CT Interpretation: No Acute Changes - NO ACUTE INTRACRANIAL PATHOLOGY. DIFFUSE INVOLUTIONAL CHANGE WITH CHRONIC SMALL VESSEL ISCHEMIC CHANGES. ED physician reviewed this radiology report. CT Interpretation Completed By: Radiologist C-Spine CT CT Interpretation Completed By: Radiologist - 1. OSTEOPENIA. 2. DEGENERATIVE DISC DISEASE AND OSTEOARTHRITIS.. 3. ATHEROSCLEROSIS. 4. NO ACUTE OSSEOUS INJURY TO THE CERVICAL SPINE ED physician reviewed this report. - EKG 0752 Cardiac Rate: NL - 73 bpm EKG Rhythm: Sinus Rhythm EKG Interpretation: LBBB Complex Multi-Symp Course/Dx Assessment/Plan: Pt is an 88 y/o F BIBA from residential who presents to ED due to an unwitnessed fall this morning, during which she hit the back of her head. Negative LOC. No history is obtainable from the patient. Level 5 caveat due to dementia. Pelvix XR, CXR, C-Spine CT, Brain CT reveal no acute findings. EKG is sinus rhythm with LBBB. Blood work was done with results including a troponin of 0.02. Pt will be D/C to home with Dx of dementia, fall, and head injury. Allergy noted. - Diagnoses Differential Diagnoses/HQI/PQRI: Other - head injury/intra cranial bleeding Provider Diagnoses: Fall, Head injury, Dementia Discharge - Sign-Out/Discharge Documenting (check all that apply): Discharge/Admit/Transfer - Discharge - Discharge Plan Condition: Stable Disposition: HOME Patient Education Materials: Fall Prevention for Older Adults (ED), Head Injury (ED) Referrals: Ras Poon MD [Primary Care Provider] - 3 Days Additional Instructions: RETURN TO ED FOR ANY NEW OR WORSENING SYMPTOMS. - Billing Disposition and Condition Condition: STABLE Disposition: HOME The documentation as recorded by the Shea santos Rebecca accurately reflects the service I personally performed and the decisions made by Adrián nava Emmanuel.
== END 2018-04-15 09:34 | disposition home or self-care (01) ==
LOC: ED 07:09
DX: S09.90XA Unspecified injury of head, initial encounter (principal); W19.XXXA Unspecified fall, initial encounter; Y93.9 Activity, unspecified; Y92.129 Unspecified place in nursing home as the place of occurrence of the external cause; F03.90 Unspecified dementia, unspecified severity, without behavioral disturbance, psychotic disturbance, mood disturbance, and anxiety; M85.88 Other specified disorders of bone density and structure, other site; E11.9 Type 2 diabetes mellitus without complications; E07.9 Disorder of thyroid, unspecified; I25.10 Atherosclerotic heart disease of native coronary artery without angina pectoris; I10 Essential (primary) hypertension; I48.91 Unspecified atrial fibrillation; Z79.01 Long term (current) use of anticoagulants; E78.00 Pure hypercholesterolemia, unspecified; K21.9 Gastro-esophageal reflux disease without esophagitis; K57.92 Diverticulitis of intestine, part unspecified, without perforation or abscess without bleeding; Z90.49 Acquired absence of other specified parts of digestive tract; Z88.5 Allergy status to narcotic agent
CPT/HCPCS: 36415; 70450; 71045; 72125; 72170; 80053; 84484; 85025; 85610; 85730; 93005; 99284

== ENCOUNTER 2018-12-06 12:57 | Inpatient (IN) | payer MEDICARE ==
--- NOTE | 2018-12-06 13:22 | ED ---
Neurological HPI - HPI Summary HPI Summary: A 88 y/o female brougght in by ambulance presents to the ED c/o increased weakness s/p fall yesterday. As per triage, "Pt sent from [facility] with c/o fall yesterday with increasing weakness over the last 2 days. Pt also not taking her PO medications. Pt [facility] assist and no indication of pain or discomfort. Pt able to sit upright with assit to remove clothes. Pt is nonverbal at this time. [employer] services initiated with [place]i interpreter and translator Thais, pt looked at speaker and listened but did not resopnd. EMS reports *high* reading on glucometer". Patients sugar reading at [facility] was very high and patient hasn' t been taking her medications. In the ED room the patient has a pulse of 95 BPM , respiratory rate of 30, and blood pressure of 111/85. Patient is alert. Patient speaks Kuwaiti. - History of Current Complaint Chief Complaint: EDWeakness Stated Complaint: GENERAL ILLNESS/PAIN Hx Obtained From: EMS Hx From Patient Unobtainable Due To: Other - PATIENT DOESN'T SPEAK, PATIENT IS ALERT. PATIENT SPEAKS K[place]ANDA. Onset/Duration: Sudden Onset, Started days ago, Still Present Timing: Constant Current Severity: None Number of Seizures: 0 Pain Intensity: 0 Pain Scale Used: 0-10 Numeric Character: Weak Syncope Timin Number of Episodes: 0 Aggravating: Nothing Alleviating: Nothing Associated Signs and Symptoms: Positive: Negative - Additional Pertinent History Primary Care Physician: HANK - Allergy/Home Medications Allergies/Adverse Reactions: Allergies Allergy/AdvReac Type Severity Reaction Status Date / Time codeine Allergy Nausea Verified 12/06/18 14:09 Home Medications: Home Medications Acetaminophen [Acetaminophen Extra Strength] 1,000 mg PO 0700,1200,2000 [History Confirmed 12/06/18] Insulin GLARGINE(*) [Lantus(*)] 14 units SUBCUT BEDTIME 12/06/18 [History Confirmed 12/06/18] Levothyroxine TAB* [Synthroid TAB*] 50 mcg PO 0500 12/06/18 [History Confirmed 12/06/18] Metoprolol Succinate XL TAB* [Toprol XL TAB*] 12.5 mg PO DAILY 12/06/18 [ History Confirmed 12/06/18] Nutritional Supplement [Resource 2.0] 90 ml PO TID 12/06/18 [History Confirmed 12/06/18] Water [Nice Distilled Water] 120 ml PO ACHS 12/06/18 [History Confirmed 12/06/18 ] dilTIAZem HCl [Cardizem LA] 120 mg PO QAM 12/06/18 [History Confirmed 12/06/18] PMH/Surg Hx/FS Hx/Imm Hx Endocrine/Hematology History: Reports: Hx Anticoagulant Therapy - lovenox, Hx Diabetes - NIDDM, Hx Thyroid Disease Cardiovascular History: Reports: Hx Coronary Artery Disease - declined stents per patient's son, Hx Hypercholesterolemia, Hx Hypertension, Other Cardiovascular Problems/Disorders - afib Respiratory History: Denies: Hx Asthma, Hx Chronic Obstructive Pulmonary Disease (COPD) GI History: Reports: Hx Gall Bladder Disease, Hx Gastroesophageal Reflux Disease , Other GI Disorders - diverticulitis, GERD, C diff Musculoskeletal History: Reports: Hx Gout, Other Musculoskeletal History - pelvic fx sep 2014 Sensory History: Reports: Hx Cataracts, Hx Vision Problem, Hx Hearing Problem Denies: Hx Contacts or Glasses, Hx Hearing Aid Opthamlomology History: Reports: Hx Cataracts, Hx Vision Problem Denies: Hx Contacts or Glasses Neurological History: Reports: Hx Dementia - Surgical History Surgery Procedure, Year, and Place: cholesysectomy Infectious Disease History: No Infectious Disease History: 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 Denies: Traveled Outside the [place] in Last 30 Days - Family History Known Family History: Positive: Hypertension, Diabetes - Social History Alcohol Use: None Hx Substance Use: No Substance Use Type: Reports: None Hx Tobacco Use: No Smoking Status (MU): Never Smoked Tobacco Review of Systems Negative: Fever, Chills Positive: Other - NEGATIVE: DOUBLE VISION. Negative: Blurred Vision Negative: Sore Throat, Ear Ache Negative: Chest Pain Negative: Shortness Of Breath Positive: Other - NEGATIVE: BLOOD IN STOOL, CONSTIPATION. Negative: Abdominal Pain Negative: dysuria, hematuria Positive: Other - NEGATIVE: BACK PAIN, NECK PAIN. Negative: Edema Negative: Rash, Bruising Positive: Weakness. Negative: Headache Negative: Anxious, Depressed All Other Systems Reviewed And Are Negative: No Physical Exam - Summary Physical Exam Summary: Appearance: Alert, conversive, nontoxic appearing, non-engaging Skin: Warm, dry, no mottling, no rashes, no contusions HEENT: EOMI, PERRL, dry mucous membranes Neck: No masses on the neck, supple Respiratory: Clear to auscultation, breath sounds present, no rales, no rhonchi , no wheezes Cardiovascular: RRR, pulses are symmetrical in both lower and upper extremities , distant heart sounds Abdomen: Soft, non-tender Bowel Sounds: Present Musculoskeletal: No CVA tenderness, no obvious deformity, moving all extremities in a grossly normal manner Neurological: A&Ox3, CN II-XII Intact, moving all extremities symmetrically, generalized weakness; patient moves arm and legs spontaneously but minimally. Psychiatric: Normal affect and mood. GCS: 15 Triage Information Reviewed: Yes Vital Signs On Initial Exam: Initial Vitals Temp Pulse Resp BP Pulse Ox 98.1 F 104 26 111/85 92 12/06/18 13:07 12/06/18 13:07 12/06/18 13:07 12/06/18 13:07 12/06/18 13:07 Vital Signs Reviewed: Yes - Shoshana Coma Scale Best Eye Response: 4 - Spontaneous Best Motor Response: 6 - Obeys Commands Best Verbal Response: 5 - Oriented Coma Scale Total: 15 Diagnostics - Vital Signs Vital Signs Temp Pulse Resp BP Pulse Ox 12/06/18 13:07 98.1 F 104 26 111/85 92 - Laboratory Result Diagrams: 12/06/18 13:26 12/06/18 17:47 Lab Statement: Any lab studies that have been ordered have been reviewed, and results considered in the medical decision making process. - Radiology CXR Radiology Interpretation Completed By: Radiologist Summary of Radiographic Findings: CARDIOMEGALY. ED PHYSICIAN REVIEWED THIS RADIOLOGY REPORT. - CT BRAIN CT CT Interpretation Completed By: Radiologist Summary of CT Findings: 1. NO EVIDENCE FOR ACUTE INTRACRANIAL ABNORMALITY. 2. ATROPHY AND FINDINGS MOST CONSISTENT WITH MODERATE TO SEVERE CHRONIC SMALL VESSEL ISCHEMIC CHANGES. ED PHYSICIAN REVIEWED THIS RADIOLOGY REPORT. CERVICAL SPINE CT CT Interpretation Completed By: Radiologist Summary of CT Findings: 1. DEGENERATIVE DISC DISEASE AND OSTEOARTHRITIS. 2. OSTEOPENIA. 3. ATHEROSCLEROSIS. 4. NO ACUTE OSSEOUS INJURY TO THE CERVICAL SPINE. ED PHYSICIAN REVIEWED THIS RADIOLOGY REPORT. - EKG 1349 Cardiac Rate: NL - 99 BPM EKG Rhythm: Sinus Rhythm - 99 BPM Summary of EKG Findings: LBBB IS NOT NEW. SIGNIFICANT ST ELEVATION IN V5, V6, AND V2 THAT WAS NOT NOTED IN PREVIOUS EKG. Re-Evaluation - Re-Evaluation First Eval Re-Evaluation Time: 15:32 Change: Unchanged Comment: PATIENT'S SON, RENETTA URBAN, ARRIVED AT [facility] ED. Second Eval Re-Evaluation Time: 15:38 Change: Unchanged Comment: IN THE ED ROOM, THE PATIENT HAS A PULSE OF 102 BPM, RESPIRATORY RATE OF 38, AND BLOOD PRESSURE OF 125/97. DISCUSSED RESULTS AND PLAN WITH PATIENT'S SON. SON NOTED THAT YOU CAN GET PATIENT TO TAKE MEDICATIONS IF YOU PLACE IT IN HER FOOD SUCH YOGURT OR PUDDING. PATIENT STOPPED TAKING MEDICATIONS BECAUSE SHE THOUGHT IT WAS THE CAUSE OF HER VOMITING. DISCUSSED ADMISSION WITH PATIENT' S SON. Course/Dx - Course Course Of Treatment: A 88 y/o female brougght in by ambulance presents to the ED c/o increased weakness s/p fall yesterday. Physical examination findings significant for patient is non-engaging, dry mucous membranes, distant heart sounds, generalized weakness; patient moves arm and legs spontaneously but minimally. A CXR revealed cardiomegaly. A Brain CT revealed 1. No evidence for acute intracranial abnormality. 2. Atrophy and findings most consistent with moderate to severe chronic vessel ischemic changes. GCS: 15. A Cervical Spine CT revealed 1. Degenerative Disc Disease and Osteoarthritis. 2. Osteopenia. 3. Athersclerosis. 4. No acute osseous injury to the cervical spine. An EKG revealed NSR of 99 BPM, not new LBBB, however, significant ST elevation in V5, V6, and V@ that was not found in previous EKG. Hematology and Chemistry screens were done. No significant laboratory abnormalities were found except hyperglycemia of 444 and 610. Additionally, Troponin I was 17.84. In the ED course, the patient received Aspirin, Insulin, and IV fluids. Patient care was discussed with internet researcher, Dr. Dayan Louis, who recommends medical admission for patient. Patient care was discussed with hospitalist Dr. Prado who accepts patient for admission. Patient will be admitted with a diagnosis of end-stemi and DKA. Patient is agreeable with this plan. - Diagnoses Provider Diagnoses: STEMI (ST elevation myocardial infarction), DKA (diabetic ketoacidosis) - Physician Notifications Discussed Care Of Patient With: Dayan Louis Time Discussed With Above Provider: 15:03 Instructed by Provider To: Other - RECOMMENDS MEDICAL ADMISSION. 1610 - DR. PRADO ACCEPTS PATIENT FOR ADMISSION. - Critical Care Time Critical Care Time: 30-74 min Discharge - Sign-Out/Discharge Documenting (check all that apply): Patient Departure - ADMIT, Sign-Out Patient - NORMA Signing out patient TO: Christopher Prado Receiving patient FROM: Jenna Barraza - Discharge Plan Condition: Stable Disposition: ADMITTED TO [facility] - Billing Disposition and Condition Condition: STABLE Disposition: Admitted to [facility] - Attestation Statements Document Initiated by Joao: Yes Documenting Scribe: Rajesh Hurt Provider For Whom Joao is Documenting (Include Credential): Jenna Barraza MD Scribe Attestation: Rajesh Vela, scrmalued for Jenna Barraza MD on 12/06/18 at 2206. Scribe Documentation Reviewed: Yes Provider Attestation: The documentation as recorded by the Rajesh santos accurately reflects the service I personally performed and the decisions made by Jenna nava MD Status of Scribe Document: Viewed
[2018-12-06] MEDS ORDERED: NS 0.9% 1000 ML* 1,000 ML IV ONE ×2 (13:30→17:28)
[2018-12-06 13:55] LABS: ABS Basophils 0 10^3/ul (0-0.2); ABS Eosinophils 0 10^3/ul (0-0.6); ABS Lymphocytes 0.9 10^3/ul (1.0-4.8); ABS Monocytes 0.7 10^3/ul (0-0.8); ABS Nucleated RBC 0 10^3/ul; Eosinophil % 0 %; Hematocrit 37 % (35-47); Hemoglobin 11.8 g/dl (12.0-16.0); Lymphocyte % 7.4 %; Mean Corpuscular HGB Conc 32 g/dl (31-36); Mean Corpuscular Hemoglobin 31 pg (27-31); Mean Corpuscular Volume 96 fL (80-97); Mean Platelet Volume 10.2 fL (7.4-10.4); Nucleated Red Blood Cells % 0; Platelet Count 282 10^3/ul (150-450); Red Blood Count 3.84 10^6/ul (4.00-5.40); Red Cell Distribution Width 15 % (10.5-15); White Blood Count 12.7 10^3/ul (3.5-10.8)
[2018-12-06 14:07] LABS: Albumin 3.5 g/dL (3.2-5.2); Albumin/Globulin Ratio 0.8 (1-3); BUN/Creatinine Ratio 23.6 (8-20); EGFR Non-African American 23.7 (>60); Globulin 4.4 g/dL (2-4); Magnesium 1.9 mg/dL (1.9-2.7); Potassium 4.9 mmol/L (3.5-5.0); Total Bilirubin 0.9 mg/dL (0.2-1.0); Total Protein 7.9 g/dL (6.4-8.9)
[2018-12-06 14:22] LABS: TSH (Thyroid Stimulating Horm) 2.36 mcIU/mL (0.34-5.60)
[2018-12-06] MEDS ORDERED: Insulin IVPB 100 units/100 ml 100 UNITS/100 ML UNIT IVPB ONE (15:13)
[2018-12-06] MEDS ORDERED: Aspirin SUPP* 300 MG PR ONE (15:16)
[2018-12-06] MEDS ORDERED: NS 0.9% 500 ML* 500 ML IV ONE (15:16)
[2018-12-06] MEDS ORDERED: Haloperidol INJ IV/IM* 5 MG/ML AMP IV SLOW PU PRN ×2 (17:28→18:33)
[2018-12-06] MEDS ORDERED: Morphine VIAL* 4 MG/ML VIAL (1 ml vial) IV PRN (17:33)
--- NOTE | 2018-12-06 17:47 | HP ---
H&P (Free Text) History and Physical: [facility] History and Physical CC: weakness HPI: 88F with htn, hld, dm, hypothyroid, cad, chf, afib, dementia presents with weakness and a fall. Fall occurred yesterday at [facility]. Patient was brought to the ER. She was found to be in DKA with FS > 600. Troponin was elevated to 17. EKG with questionable st elevations. The patient has dementia and is not cooperative with history and physical. Patient given iv fluids, heparin gtt, insulin gtt. Admitted to ICU. ROS - unable 2/2 dementia PMHx - htn, hld, dm, hypothyroid, cad, chf, afib, dementia PSHx - cholecystectomy, cataracts, hip orif All - codeine SocHx - no drugs/etoh/tobacco FamHx -unable 2/2 dementia PE Vital Signs: Temp Pulse Resp BP Pulse Ox 98.2 F 105 32 125/94 96 12/06/18 17:19 12/06/18 17:19 12/06/18 17:19 12/06/18 17:19 12/06/18 17:19 Gen - in distress, confused heent - ncat, perrl neck - no jvd cv - s1/s2, tachy lungs - cta, no wheeze abd - soft, nt ext - no cce neuro - agitated, pulling at lines and tubes Labs Laboratory Results - last 24 hr 12/06/18 12/06/18 12/06/18 13:15 13:26 13:26 WBC 12.7 H RBC 3.84 L Hgb 11.8 L Hct 37 MCV 96 MCH 31 MCHC 32 RDW 15 Plt Count 282 MPV 10.2 Neut % (Auto) 86.8 Lymph % (Auto) 7.4 [place] % (Auto) 5.4 Eos % (Auto) 0 Baso % (Auto) 0.4 Absolute Neuts (auto) 11.0 H Absolute Lymphs (auto) 0.9 L Absolute Monos (auto) 0.7 Absolute Eos (auto) 0 Absolute Basos (auto) 0 Absolute Nucleated RBC 0 Nucleated RBC % 0 Sodium 135 Potassium 4.9 Chloride 104 Carbon Dioxide 16 L Anion Gap 15 H BUN 47 H Creatinine 1.99 H Est GFR ( Amer) 28.7 Est GFR (Non-Af Amer) 23.7 BUN/Creatinine Ratio 23.6 H Glucose 610 H* POC Glucose (mg/dL) > 444 H* Calcium 9.0 Magnesium 1.9 Total Bilirubin 0.90 AST 102 H ALT 44 Alkaline Phosphatase 211 H Troponin I 17.84 H* Total Protein 7.9 Albumin 3.5 Globulin 4.4 H Albumin/Globulin Ratio 0.8 L TSH 2.36 Imaging CXR 12/06 IMPRESSION: CARDIOMEGALY Brain CT 12/06 IMPRESSION: 1. NO EVIDENCE FOR ACUTE INTRACRANIAL ABNORMALITY. 2. ATROPHY AND FINDINGS MOST CONSISTENT WITH MODERATE TO SEVERE CHRONIC SMALL VESSEL ISCHEMIC CHANGES. Cervical Spine CT 12/06 IMPRESSION: 1. DEGENERATIVE DISC DISEASE AND OSTEOARTHRITIS. 2. OSTEOPENIA. 3. ATHEROSCLEROSIS. 4. NO ACUTE OSSEOUS INJURY TO THE CERVICAL SPINE. EKG 12/06 ?ischemic changes Impression 88F with htn, hld, dm, hypothyroid, cad, chf, afib, dementia presents with DKA, and acute myocardial infarction Plan Neuro - dementia - haldol prn CV - htn, hld, dm, cad, chf, afib, acute TN - discussed with cardiology, patient not a candidate for [facility] given age and co- morbidities - conservative management with asa/statin/heparin gtt - check tte - serial ekg/troponin - morphine for pain - c/w home betablocker/ccb pulm - oxygenating ok id - no evidence of infection gi - npo for now renal - td on ckda - iv hyrdration - monitor i/o - monitor lytes heme - monitor cbc endo - dka, hypothyroid - insulin gtt - serial bmp, mg, phos - iv hydration - fs q1h - c/w synthroid lines - piv ppx - gi/dvt dnr/dni Admit to ICU Critical Care Time: 65 mins
[2018-12-06] MEDS ORDERED: Insulin IVPB 100 units/100 ml 100 UNITS/100 ML UNIT IVPB SCH (18:00)
[2018-12-06 18:24] LABS: BUN/Creatinine Ratio 22.8 (8-20); Calcium 8.1 mg/dL (8.6-10.3); EGFR Non-African American 22.8 (>60); Phosphorus 5.3 mg/dL (2.5-5.0); Potassium 4.3 mmol/L (3.5-5.0)
[2018-12-06] MEDS ORDERED: Heparin DRIP 25,000 UNITS(*) 25,000 UNITS/500 ML BAG IV SCH (18:30)
[2018-12-06] MEDS ORDERED: Heparin VIAL(*) 5000 UNITS/ML VIAL (FIVE THOUSAND) IV SCH (18:30)
[2018-12-06] MEDS ORDERED: Ondansetron INJ* 2 MG/ML VIAL IV PRN (18:33)
[2018-12-06] MEDS ORDERED: LORazepam INJ* 2 MG/ML 1 ML VIAL IV PUSH PRN (18:33)
[2018-12-06] MEDS ORDERED: Acetaminophen SUPP* 650 MG SUPP PR PRN (18:33)
[2018-12-06 18:36] LABS: Urine Appearance Cloudy; Urine Bacteria 2+ (Absent); Urine Bilirubin Negative (Negative); Urine Blood 2+ (Negative); Urine Color Amber; Urine Glucose 3+(>=500 mg/dL) (Negative); Urine Ketones Negative (Negative); Urine Nitrite Negative (Negative); Urine Protein 1+(30 mg/dL) (Negative); Urine Red Blood Cell 2+(6-10/hpf) (Absent); Urine Specific Gravity 1.012 (1.010-1.030); Urine Urobilinogen Negative (Negative); Urine White Blood Cell 2+(11-20/hpf) (Absent)
--- NOTE | 2018-12-06 18:39 | PN ---
Progress Note - Progress Note Date of Service: 12/06/18 Note: Discussed with patient's son, Yonathan, on the phone and he understands that the patient is critically ill. He stated that she would not want aggressive measures given her age and advanced dementia. Comfort care order set placed. Patient can be admitted to the floor with morphine for pain.
[2018-12-06] MEDS ORDERED: Scopolamine 1.5 mg* PATCH TRANSDERM SCH (19:00)
[2018-12-06] MEDS ORDERED: Morphine PCA ADULT* 5 MG/ML 30 ML PCA SCH (19:00)
[2018-12-06] MEDS ORDERED: Atorvastatin* 80 MG TAB PO ONE (21:00)
--- NOTE | 2018-12-06 21:17 | CONS ---
CC: Dr. Louis; Hospitalist Service CONSULTATION REPORT: DATE OF CONSULT: 12/06/18 HISTORY OF PRESENT ILLNESS: I was asked by hospitalist service to see this 88-year- old female patie nt who was brought into the emergency room by ambulance from her nursing facility, [facility]. Of not e is that the patient is demented with DNR, DNI status in place. No history was able to be obtained from the patient. I obtained her history from ER physician, hospitalist service, watch commander. The p atient speaks khmer. Apparently, the patient had multiple falls at the nursing facility, increased w eakness, and brought in from [facility] with a history of multiple falls. In the emergency room, she w as found to be in left bundle-branch block and abnormal troponin. Cardiology consult was further ask ed because of her abnormal troponin. From the information obtained, there is no history of documented myocardial infarction or coronary artery disease as I understand the left bundle-branch block is not new. The patient is in the emergency room agitated, but demented. She wants to get out from the be d and again I am unable to obtain medical history from the patient because of the above. It was note d that the patient's sugar reading at [facility] was very high and the patient has not been taking her medication. In the emergency room, she was found to have a blood pressure of 111/85, alert, but dis oriented and her pulse was 95 with a sinus rhythm. PAST MEDICAL HISTORY: Other medical history none obtainable at the present time. From the notes, his tory of cholecystectomy. MEDICATIONS: History of medications includin. Insulin. 2. Synthroid 50 mcg daily. 3. Metoprolol 12.5 mg daily. 4. Diltiazem 120 mg daily. FAMILY HISTORY: No family history of premature CAD from the notes. SOCIAL HISTORY: No history of smoking, drinking, or illicit drug use. PHYSICAL EXAM: She is alert, but she is combative. No chest pain. She is demented. Vitals: Blood pressure 110/70, pulse 90, sinus rhythm. Ears, Nose, and Throat: Essentially benign. Neck: Suppl e. JVP is not elevated. No carotid bruit. Chest: Clear to auscultation. No rales, no wheezes. H eart: Normal S1, S2. No added sounds. No gallops. Grade 2/6 systolic murmur in the left sternal b order. Abdomen: Benign. Positive bowel sounds. Extremities: No edema, no cyanosis, and no clubbi ng. RADIO INTERFERENCE INVESTIGATOR: No focal deficits appreciated. Skin exam appears to be normal. DIAGNOSTIC STUDIES/LAB DATA: White blood cell 12.7, hemoglobin 11.8, hematocrit 37, platelets 282. Sodium 135, potassium 4.9, chloride 104, BUN 47, creatinine 2, glucose 610. LFTs: AST 102, troponin 17.8, TSH normal at 2.36. Chest x-ray: Cardiomegaly. EKG: Sinus tachycardia. Heart rate 99 beats per minute. Left bundle-b ranch block is appreciated. Deep ST depressions, universal; mostly actually in leads II, III, V5, V6 ; but again, that is in the setting of left bundle. IMPRESSION: The patient is an 88-year-old female with: 1. Ruled in for htc-PF-lagbsntrm myocardial infarction. 2. Abnormal EKG as described. 3. Diabetic ketoacidosis. 4. The patient is demented. 5. Do not resuscitate/do not intubate status in place from [facility]. 6. Renal insufficiency. PLAN/RECOMMENDATIONS: I have discussed this at length with Dr. Prado and the watch commander. The asha ent is currently DNR/DNI. High comorbidities, high risk, based on the above. I understand discussio ns further with the family members for comfort care. At the present time, continue treatment for heydi betic ketoacidosis. Cardiac-williamson, aspirin, heparin, low-dose beta-grover. Echocardiogram to evaluat e left ventricular systolic function. Any further recommendations would be pending clinical outcome. TIME SPENT: More than half of at least 55 to 60+ minute was discussing care further, making further recommendations, education, and counseling mode. [id number]/[facility] #: [id number]
[2018-12-07 01:04] VITALS: BP 102/71
[2018-12-07] MEDS ORDERED: Levothyroxine TAB* 25 MCG TAB PO SCH (06:00)
[2018-12-07] MEDS ORDERED: Diltiazem CD CAP* 120 MG PO SCH (09:00)
[2018-12-07] MEDS ORDERED: Metoprolol Succinate XL TAB* 25 MG PO SCH (09:00)
[2018-12-07] MEDS ORDERED: Pantoprazole TAB * 40 MG TAB PO SCH (09:00)
--- NOTE | 2018-12-07 21:37 | DS ---
BRIEF SUMMARY: DATE OF ADMISSION: 12/06/18 DATE OF : 12/07/18 TIME OF : 9:10 a.m. CAUSE OF : Acute myocardial infarction/wqz-XQ-tsmocolft WI. SECONDARY DIAGNOSES: 1. Coronary artery disease. 2. Hypertension. 3. Diabetes. BRIEF HOSPITAL COURSE: An 88-year-old female with history of hypertension, hyperlipidemia, diabetes, hypothyroidism, coronary artery disease, CHF, AFib, dementia, came into the hospital after a fall an d was noted to be weak. She lived at [facility] [place] before. In the ER, she was known to be in DKA with a fasting blood sugar over 600. Troponin was also elevated at 17. The patient was admitted to the [facility] and please refer to Dr. Puckett's history and physical for full details. The patient was seen by Dr. Missy Govea. The patient determined to be not a candidate for a left heart cath given a ge and comorbidities. Initially, conservative management with aspirin, statin and heparin drip was i nstituted and her diabetes was managed with an insulin drip initially. The patient was then transiti oned to comfort care after evaluation by Cardiology and the patient passed early this morning on comf ort measures prior to my examination. Please refer to the ICU notes for full details of the patient' s hospitalization. [id number]/[facility] #: [id number]
[2018-12-09] MEDS ORDERED: Scopolamine PATCH Remove* 1 NOTE MISC PATCH OFF SCH (18:34)
== END 2018-12-07 09:10 | disposition expired ==
LOC: ED 12:57 → ICU 17:15 → MED 19:12
PROVIDERS: ADMIT Internal Medicine; ATTEND Internal Medicine
DX: I21.4 Non-ST elevation (NSTEMI) myocardial infarction (principal); E11.10 Type 2 diabetes mellitus with ketoacidosis without coma; I13.0 Hypertensive heart and chronic kidney disease with heart failure and stage 1 through stage 4 chronic kidney disease, or unspecified chronic kidney disease; N17.9 Acute kidney failure, unspecified; E78.5 Hyperlipidemia, unspecified; R40.2412 Glasgow coma scale score 13-15, at arrival to emergency department; I44.7 Left bundle-branch block, unspecified; E11.22 Type 2 diabetes mellitus with diabetic chronic kidney disease; N18.9 Chronic kidney disease, unspecified; Z66 Do not resuscitate; I25.10 Atherosclerotic heart disease of native coronary artery without angina pectoris; I48.91 Unspecified atrial fibrillation; E03.9 Hypothyroidism, unspecified; I50.9 Heart failure, unspecified; K21.9 Gastro-esophageal reflux disease without esophagitis; R29.6 Repeated falls; M10.9 Gout, unspecified; F03.90 Unspecified dementia, unspecified severity, without behavioral disturbance, psychotic disturbance, mood disturbance, and anxiety; H91.90 Unspecified hearing loss, unspecified ear; Z51.5 Encounter for palliative care; Z88.5 Allergy status to narcotic agent; Z90.49 Acquired absence of other specified parts of digestive tract; Z86.19 Personal history of other infectious and parasitic diseases; Z82.49 Family history of ischemic heart disease and other diseases of the circulatory system; Z83.3 Family history of diabetes mellitus; Z98.42 Cataract extraction status, left eye; Z98.41 Cataract extraction status, right eye
CPT/HCPCS: 36415; 70450; 71045; 72125; 80048; 80053; 80061; 81003; 81015; 83036; 83735; 84100; 84443; 84484; 85025; 85730; 87077; 87086; 87186; 87641; 93005; 96361; 96374; 96375; 96376; 99284; A9270-GY; J1630; J1815; J2060; J2270